=== PATIENT | male | born 1955 | race Caucasian/White ===

== ENCOUNTER 2023-04-06 09:55 | Emergency (ER) | payer MEDICARE, SELFPAY ==
[2023-04-06 10:00] VITALS: BP 193/77; PULSE 58; RESP 20; TEMP 36.6; O2SAT 98; BMI 26.6
[2023-04-06 10:45] VITALS: BP 200/104; PULSE 53; RESP 16; TEMP 37.6; O2SAT 98
[2023-04-06 11:01] VITALS: BP 185/102
--- NOTE | 2023-04-06 11:10 | ED.GENADULT ---
HPI - General Adult General Chief complaint: General Medical Stated complaint: Swollen eye/Sinus infection? Time Seen by Provider: 04/06/23 11:04 Source: patient Mode of arrival: ambulatory Limitations: no limitations History of Present Illness HPI narrative: 67-year-old male with no significant medical history, poor dentition presents to the ER for evaluation of right upper dental pain associated with mild swelling and new redness of the face, right under the right eye that started yesterday. He states he has been taking ibuprofen with no relief in the pain. He states the pain is worse when he opens his mouth all the way. He denies any new dental trauma. He does not have a dentist that he follows with regularly. He denies any pain with extraocular movements. No swelling of the upper eye. No fever or chills. No vision changes. MD complaint: Right upper dental pain and right-sided facial swelling Onset (ago): day(s) (2) Location: face and mouth Radiation: distal Severity: moderate Severity scale (1-10): 7 Quality: aching Pain Consistency: constant Relieving factors: medication Exacerbating factors: movement Associated symptoms: denies other symptoms Treatments prior to arrival: NSAID Related Data Previous Rx's Medication Instructions Recorded amoxicillin 875 mg-potassium 1 tab PO BID #20 tabs 04/06/23 clavulanate 125 mg tablet Allergies Allergy/AdvReac Type Severity Reaction Status Date / Time No Known Allergies Allergy Verified 04/06/23 10:12 Review of Systems Review of Systems: Yes all other systems are reviewed and are negative PMFSH Social History Social History Advance Directives: No Advance Directives Information Provided: Yes Physical Exam ED Vital Signs: Vital Signs - 24 hr 04/06/23 10:00 04/06/23 10:45 04/06/23 11:01 Temperature 98 F 99.6 F Pulse Rate 58 53 Respiratory Rate 20 16 Blood Pressure 193/77 H 200/104 H 185/102 H Pulse Oximetry 98 98 Oxygen Delivery Method Room Air Room Air BMI result Body Mass Index 26.6 Appearance: Alert. Oriented X3. No acute distress. Head: normocephalic, atraumatic. Eyes: Right inferior periorbital area with mild erythema, slight puffiness and tenderness. Normal inspection of the right upper eyelid, conjunctiva and sclera. Pupils equal, round and reactive to light. Extraocular movements intact ENT: Poor dentition, 2 broken and decayed teeth in the right upper molar area with tenderness. No associated gingival fluctuance. No trismus Pharynx normal. No tonsillar swelling or exudate. Neck: Normal inspection. Neck supple. No palpable lymphadenopathy CVS: Normal heart rate and rhythm. Pulses normal. Respiratory: No respiratory distress. Breath sounds normal. Abdomen: Soft and nontender. +BS x4 Skin: Skin warm and dry. Normal skin color. Normal skin turgor. No rashes. Extremities: No lower extremity edema. No joint swelling. Neuro/psych: Oriented X 3. No motor deficit. No sensory deficit. CN II-XII intact. Normal speech and cognition. Medical Decision Making Medical Decision Making MDM Narrative: 67-year-old male with history of poor dentition presents to the ER for evaluation of right upper dental pain associated with right-sided facial swelling and pain, new onset of redness and swelling below the right eye today. No pain with extraocular movements. The redness and swelling is mild and new onset as of yesterday. He is not diabetic. No fevers or chills. No trismus. No palpable abscess on examination. Will treat for preseptal cellulitis with Augmentin. No risk factors for MRSA. He was given list of emergency dentist to follow-up with. He will contact PCP. He has not seen a doctor in years. He states he has a longstanding history of untreated hypertension, but his blood pressure and not been is high. Pain likely contributing. He has no chest pain, vision changes, headache at this time. Blood pressure 180/100 at the time of discharge. He is asymptomatic. Differential Diagnosis Differential Diagnoses: The differential diagnosis associated with the presentation includes Dental abscess, preseptal cellulitis, periorbital cellulitis Untreated hypertension, malignant hypertension, hypertensive urgency, hypertensive emergency Prescription Management I considered prescription management with: Pain Medication and Antibiotic Chronic Conditions Patient?s care impacted by: Hypertension Critical Care Time Critical Care Time Critical Care Time: No Discharge Plan Discharge Clinical Impression: Preseptal cellulitis of right eye Patient Disposition: Home, Self-Care Instructions: Periorbital Cellulitis in Adults (ED) Additional Instructions: Take the prescribed antibiotic as directed. Start the antibiotic right away, do not miss any doses in complete the entire course. Use warm compresses to the area to help increase blood flow, to fight the infection. Follow-up with a dentist as soon as possible. Continue Tylenol and Motrin as needed for pain. Follow-up with your primary care doctor as soon as possible. Your blood pressure was significantly elevated in the emergency department. If you develop new or worsening symptoms call 911 or come back to the ER for further evaluation. Prescriptions: New amoxicillin-pot clavulanate 875-125 mg tablet 1 tab PO BID Qty: 20 0RF Referrals: Heron Mccracken MD [Primary Care Provider] -
--- NOTE | 2023-04-06 11:30 | PC.NURSE ---
Pt given D/C instructions, follow up with PCP in regards to BP.
== END 2023-04-06 11:31 | disposition home or self-care (01) ==
PROVIDERS: Emergency Provider Emergency Medicine; PCP Internal Medicine
DX: H00.031 Abscess of right upper eyelid (principal)
CPT/HCPCS: 99283

== ENCOUNTER 2024-01-15 08:11 | Outpatient (AMB) | payer MEDICARE, SELFPAY ==
[2024-01-15 08:40] VITALS: BP 180/100; PULSE 94; TEMP 36.5; O2SAT 96; BMI 28.9
--- NOTE | 2024-01-15 08:40 | MHC.OFFWIV ---
Intake Vital Signs 01/15/24 08:40 Height 5 ft 9 in Weight 196 lb BMI 28.9 BP 180/100 H Blood Pressure Location Lt brachial Position Sitting Pulse 94 Pulse Source Pulse Oximeter Temp 97.7 F Temp Source Temporal Artery Scan Pulse Oximetry (%) 96 Oxygen Delivery Method Room Air Intake Visit Reasons: EP Lft side pain coughing sneezing Intake Note: pt is here today for lft side pain coughing sneezing started 1 week ago Patient Tobacco Use Status: Never used Tobacco Allergies No Known Allergies Allergy (Verified 01/15/24 08:41) Do you need a note to return to daycare/school/sports/work: Yes HPI HPI Comments History of Present Illness Details 68 y/o male patient who presents to walk in clinic with c/o URI symptoms. Reports coughing on/off for 2 weeks now. Denies fevers, chills, nausea or vomiting. He has been taking OTC remedies with some relief. PFSH Social History Patient Tobacco Use Status: Never used Tobacco Review of Systems Const All systems reviewed & are unremarkable except as noted in HPI and below Physical Exam Vital Signs: Last Vital Signs Temp 97.7 F 01/15/24 08:40 Pulse 94 01/15/24 08:40 BP 180/100 H 01/15/24 08:40 Pulse Ox 96 01/15/24 08:40 Oxygen Delivery Method Room Air 01/15/24 08:40 BMI result Body Mass Index 28.9 Const General: comfortable and no acute distress Nutritional Appearance: obese Orientation/consciousness: patient oriented x3 HEENT Head: Yes No palpable skull fracture present and Yes normocephalic Ears: external ears normal and TM's normal bilaterally General nose exam: Normal nasal mucous membranes and turbinates present Face and sinus: Yes sinuses nontender Mouth: moist mucous membranes Throat: Yes posterior oropharynx normal Resp Effort & Inspection: normal respiratory effort and able to speak in complete sentences Auscultation: clear to auscultation bilaterally, no crackles, no rales, no rhonchi and no wheezes Cardio Rate: regular rate Rhythm: regular rhythm Neuro General: patient oriented x3 Assessment & Plan Assessment & Plan (1) Cough in adult: Code(s): R05.9 - Cough, unspecified Plan: - OTC cough remedies Orders: Orders SARS-CoV2/FLU/RSV Today R05.9 - Cough, unspecified Medications: New benzonatate 100 mg PO TID 30 caps 0RF R05.9 - Cough, unspecified Coding Level of Care Code Est Pt Level 3 (28501) Diagnoses Cough in adult R05.9 Time Spent (min) 15
== END 2024-01-15 09:34 | disposition home or self-care (01) ==
PROVIDERS: PCP Internal Medicine; Visit Provider Nurse Practitioner Family
DX: R05.9 Cough, unspecified (principal)
CPT/HCPCS: 99213

== ENCOUNTER 2024-01-15 09:14 | Outpatient (REF) | payer MEDICARE, SELFPAY ==
[2024-01-15 12:15] LABS: Influenza A PCR NEGATIVE (Negative); Influenza B PCR NEGATIVE (Negative); Resp Syncy Virus RNA Qual PCR NEGATIVE (Negative); SARS COV2 PCR INHOUSE NEGATIVE (Negative)
== END 2024-01-15 09:15 | disposition home or self-care (01) ==
LOC: HO.LAB 09:14
PROVIDERS: Visit Provider Nurse Practitioner Family
DX: Z11.52 Encounter for screening for COVID-19 (principal); Z20.822 Contact with and (suspected) exposure to COVID-19; R05.9 Cough, unspecified
CPT/HCPCS: 0241U

== ENCOUNTER 2024-09-14 23:35 | Observation (INO) | payer MEDICARE, SELFPAY ==
--- NOTE | ~2024-09-14 | CT_ITS ---
EXAMINATION: IV contrast enhanced CT angiography of the head and neck; delayed IV contrast-enhanced CT the head CLINICAL INFORMATION: Right face, arm and leg numbness. COMPARISON: Unenhanced CT of the head 09/15/2024 TECHNIQUE: IV contrast enhanced CT angiography of the head and neck with multiple 3-D reformatted angiographic thick section MIPS images processed on the technologist workstation under concurrent supervision; delayed IV contrast-enhanced CT the head. Vascular stenoses are made with reference to the NASCET criteria less otherwise specified. This CT examination was performed using dose optimization techniques as appropriate, variously including the following: *Automated exposure control *Adjustment of mA and/or kV according to patient size (this includes techniques or standardized protocols for targeted exams where dose is matched to indication/reason for exam; i.e. extremities or head) *Use of iterative reconstruction technique Intravenous Contrast: Omnipaque 350 75 mL DLP: 1513 mGy-cm FINDINGS: IV contrast enhanced CT of the head: No intracranial hemorrhage, tumors or acute infarcts identified. . Mild diffuse commensurate prominence of the ventricles and sulci. Mild scattered subcortical and periventricular white matter patchy hypodensities. No abnormal extra-axial fluid collections. Bilateral ocular lens replacements. No extracranial soft tissue inflammatory changes. 2 mm incidental punctate subcutaneous calcification within the left temporal region. No significant opacification of the visualized paranasal sinuses, mastoid air cells and middle ear cavities. CT angiography neck: Conventional branching anatomy of the great vessels in relation to the transverse aorta. Scattered nonocclusive calcifications within the proximal great vessels. Nonocclusive scattered eccentric segmental anomaly noncalcific atherosclerosis within the left and right common carotid arteries. Right carotid bulb is patent. Nonocclusive eccentric calcific and noncalcific nonulcerative plaque is present at the origin of the right internal carotid artery. Eccentric nonulcerative mixed calcific and noncalcific plaque is present at the origin of the left internal carotid artery. A diminutive right vertebral artery is present. The left vertebral artery is dominant. Diminutive right foramina transversaria are present. No vertebral artery dissections identified. CT angiography head: Field-type origin of the right posterior cerebral artery is noted. Mild nonocclusive segmental calcific plaques are present in the cavernous portions of the internal carotid arteries. No intracranial occlusions or stenoses identified. No intracranial aneurysms visualized. Within the visualized pulmonary arterial system, no gross intraluminal filling defects noted. Scattered coarse benign appearing reticular opacities are present in the left lung apex. The thyroid is grossly normal in appearance. No gross cervical lymphadenopathy identified. Normal appearance of the submandibular and parotid glands. Dental amalgam is present and is arises scattering artifact during visualization of adjacent transaxial structures. Marked intervertebral disc space narrowing and endplate osteophytosis of the cervical spine is present. Multilevel facet hypertrophic changes of the cervical spine noted. CT/CT angio head neck stroke IMPRESSION: IV contrast enhanced CT of the head: *No acute intracranial abnormalities. *Mild chronic microangiopathic ischemic changes. CT angiography head: *No intracranial large vessel occlusions. *Nonocclusive mild segmental calcific atherosclerosis of the cavernous portions of the internal carotid arteries. CT angiography neck: *No high-grade stenoses. *Nonocclusive eccentric nonulcerative mixed calcific and noncalcific atherosclerotic plaque at the origins of the left and right internal carotid arteries. *Nonocclusive nonulcerative segmental atherosclerosis of the common carotid arteries. This result was discussed with Ranjana Davila MD by telephone at 09/15/2024 1:01 AM EST and it was ascertained that the content and urgency of the report was understood at the time of direct communication. Electronically signed by: Cristofer Dill MD 09/15/2024 01:03 AM EST
--- NOTE | ~2024-09-14 | CT_ITS ---
EXAMINATION: CT HEAD WITHOUT CONTRAST (STROKE PROTOCOL) CLINICAL INFORMATION: Stroke protocol. Right face, arm and leg numbness. COMPARISON: None available. TECHNIQUE: Contiguous axial imaging was performed from the skull base to vertex without intravenous administration of contrast. This CT examination was performed using dose optimization techniques as appropriate, variously including the following: *Automated exposure control *Adjustment of mA and/or kV according to patient size (this includes techniques or standardized protocols for targeted exams where dose is matched to indication/reason for exam; i.e. extremities or head) *Use of iterative reconstruction technique DLP: 715 mGy-cm FINDINGS: No intracranial hemorrhage, tumors or acute infarcts identified. Mild diffuse commensurate prominence of ventricles and sulci. Mild scattered subcortical and periventricular white matter patchy hypodensities. No dense vessel sign is identified to specifically suggest thrombus in situ. No abnormal extra-axial fluid collections identified. Bilateral ocular lens replacements. No intracranial soft tissue inflammatory changes. No significant opacification of the visualized paranasal sinuses, mastoid air cells and middle ear cavities. No extracranial soft tissue inflammatory changes visualized. Incidental note is made of a 3 mm punctate subcutaneous calcification in the left temporal region. CT/CT head for stroke IMPRESSION: *No acute intracranial abnormalities. No intracranial hemorrhage or acute infarcts identified. *Mild chronic microangiopathic ischemic changes. This critical result was discussed with Ranjana Davila MD by telephone at 09/15/2024 12:26 PM EST and it was ascertained that the content and urgency of the report was understood at the time of direct communication. Electronically signed by: Cristofer Dill MD 09/15/2024 12:29 AM EST
--- NOTE | ~2024-09-14 | MR_ITS ---
EXAMINATION: MR BRAIN WITHOUT CONTRAST CLINICAL INFORMATION: Left subcortical infarct COMPARISON: Correlated to CT brain and CT angiogram brain dated September 15, 2024. TECHNIQUE: MRI of the brain was obtained using routine sequences without contrast. FINDINGS: Paramagnetic field distortion secondary to hardware in the left frontal convexity. No restricted diffusion. No acute intracranial hemorrhage, mass effect, midline shift, hydrocephalus or herniation. There are multifocal, scattered in numerous susceptibility signal foci involving the infratentorial and supratentorial compartments and basal ganglia. Rodriguez-white matter differentiation is normal. Bilateral multifocal patchy and confluent deep periventricular white matter hyperintense T2 FLAIR signal involving centrum semiovale and massey radiata, the most conspicuous in the right parietal white matter. Multifocal old lacunar infarcts with the cribriform pattern involving the basal ganglia and massey radiata. Distinct old lacunar infarct left thalamus Flow-void signal within the main vessels is normal. Sellar/suprasellar region demonstrated no gross masses or signal abnormality. Craniocervical junction is intact. Midline structures are normal. MR/MR head/brain wo con IMPRESSION: No acute ischemia/stroke. Small vessel occlusive disease. Old microhemorrhages related to chronic hypertension and less likely amyloid microangiopathy Electronically signed by: Mehdi Stack MD 09/15/2024 03:38 PM EST
[2024-09-14 23:47] VITALS: BP 193/95; PULSE 89; RESP 16; TEMP 36.7; O2SAT 97
[2024-09-15] VITALS (9 sets, daily range): BP systolic 146–182; BP diastolic 72–89; PULSE 68–91; RESP 16–19; TEMP 36.4–36.7; O2SAT 96–99; BMI 28.8
--- NOTE | 2024-09-15 00:01 | ECG_ITS ---
Test Reason : STROKE PROTOCAL Blood Pressure : / mmHG Vent. Rate : 090 BPM Atrial Rate : 090 BPM P-R Int : 158 ms QRS Dur : 130 ms QT Int : 386 ms P-R-T Axes : 053 -25 -05 degrees QTc Int : 472 ms Normal sinus rhythm Right bundle branch block Minimal voltage criteria for LVH, may be normal variant ( R in aVL ) Abnormal ECG No previous ECGs available Referred By: Ranjana Davila Electronically Signed By:DA MENSAH MD
--- NOTE | 2024-09-15 00:03 | ED_ITS ---
HPI - Neuro Symptoms/Deficit General Chief Complaint: Stroke Stated Complaint: r side numbness Time Seen by Provider: 09/14/24 23:51 Source: patient and family Mode of arrival: ambulatory Limitations: no limitations History of Present Illness ED Provider: Dr. Ranjana Davila HPI Narrative: Patient comes to the emergency room complaining of right-sided face, arm and left leg numbness. According to the patient at 21:30 he went to bed. Approximately at 23:00 (1 hour ago), patient woke up and noted that his right arm was numb and tingly. Patient states that this happens to him a lot because he usually sleeps on his right side. However, he noticed that this time it was not only his arm, but his right side of the face, tongue and leg. Patient states that he does not have weakness in the upper lower extremities. However they feel numb and tingly. According to the patient's , she never noted any facial drooping, no dysarthria or aphasia. The patient's state that patient was able to walk normal from the car to the ED entrance, not dragging the leg. Patient denies any medical problems. However, the patient's states that the patient has had been seen a primary care physician in several years. Patient known to have history of hypertension but does not take any medication per patient's choice. Patient is not on any blood thinners. Related Data Previous Rx's ?Medication ?Instructions ?Recorded benzonatate 100 mg capsule 100 mg PO TID #30 caps 01/15/24 Allergies Allergy/AdvReac Type Severity Reaction Status Date / Time No Known Allergies Allergy Verified 09/14/24 23:57 Review of Systems 2 Review of Systems: Constitutional : No Weight loss, No Fever, No Chills, No Night Sweats, No Fatigue, No Malaise ENT/Mouth : No Hearing loss, No Ear Pain, No Nasal Congestion, No Sinus Pain, No Hoarseness, No sore throat, No Rhinorrhea, No Swallowing Difficulty Eyes: No Eye Pain, No Swelling, No Redness, No Foreign Body, No Discharge, No Vision Changes Cardiovascular : No Chest Pain, No SOB, No Dyspnea on Exertion, No Orthopnea, No Edema, No Palpitations Respiratory : No Cough, No Sputum, No Wheezing, No Smoke Exposure, No Dyspnea Gastrointestinal : No Nausea, No Vomiting, No Diarrhea, No Constipation, No abdominal Pain, No Hematochezia, No Melena Genitourinary : no irregular bleeding, No Dysuria, No Urinary Frequency, No Hematuria, No Urinary Incontinence, No Urgency, No Flank Pain, No Urinary Flow Changes, No Hesitancy Musculoskeletal : No joint pain, No Myalgias, No Joint Swelling Skin : No Skin Lesions, No rash Neuro : No Weakness, complaining of right-sided face, arm and leg numbness tingling Psych : No Anxiety/Panic, No Depression, No SI/HI/AH/VH, No Social Issues, Heme/Lymph: No Bruising, No Bleeding,No Lymphadenopathy Endocrine : No Polyuria, No Polydipsia, No Temperature Intolerance [facility] Past Medical History Medical History (Updated 09/15/24 @ 00:52 by Ranjana Davila MD) Hypertension Social History Social History Patient Tobacco Use Status: Never used Tobacco Advance Directives: No Advance Directives Information Provided: Yes Do you have a plan to hurt others: No Plan Physical Exam 2 Vital Signs: Vital Signs: Last Vital Signs Temp 98.0 F 09/15/24 00:51 Pulse 91 09/15/24 01:00 Resp 17 09/15/24 00:51 BP 173/85 H 09/15/24 01:00 Pulse Ox 96 09/15/24 00:51 O2 Del Method Room Air 09/15/24 00:51 BMI result Body Mass Index 30.0 Const: Other: Appearance: Alert. Oriented X3. No acute distress. Eyes: Pupils equal, round and reactive to light. ENT: Pharynx normal. Neck: Normal inspection. Neck supple. No lymph nodes noted. No crepitus CVS: Normal heart rate and rhythm. Pulses normal. Normal S1 and S2 Respiratory: No respiratory distress. Breath sounds normal. No Wheezing. No rales Abdomen: Soft and nontender. No rigidity. No distention. Skin: Skin warm and dry. Normal skin color. Normal skin turgor. Extremities: No lower extremity edema. No Lacerations. No Rash Neuro: Oriented X 3. No motor deficit. No sensory deficit. Moving all extremities. No slurred speech. CN 2 through 12 grossly intact normal speech, no dysarthria, no aphasia, normal strength in upper and lower extremities Psych: calm, cooperative, normal affect Course Course Course Narrative: On arrival, patient's NIH score is 0. Patient reporting right-sided facial numbness and tingling, also in the upper and lower extremity on the right. Patient states that since he arrived to the ED, the numbness/paresthesias have actually gotten better by themselves. Medications Administered Discontinued Medications Generic Name Dose Route Start Last Admin Trade Name Breanna PRN Reason Stop Dose Admin Aspirin 325 mg 09/15/24 00:38 09/15/24 01:01 Aspirin Enteric Coated 325 Mg Tablet. PO 09/15/24 00:39 325 mg ONCE ONE Administration Atorvastatin Calcium 80 mg 09/15/24 00:38 09/15/24 01:01 Atorvastatin Calcium 80 Mg Tablet PO 09/15/24 00:39 80 mg ONCE ONE Administration Iohexol 75 ml 09/15/24 00:19 09/15/24 00:19 Iohexol 350 Mg/Ml 100 Ml Infus..Btl IV 09/15/24 00:20 75 ml ONCE ONE Administration Labetalol HCl 100 mg 09/15/24 00:38 09/15/24 01:00 Labetalol Hcl 100 Mg Tablet PO 09/15/24 00:39 100 mg ONCE ONE Administration Protocol Medical Decision Making Medical Decision Making [facility] Narrative: 00:40: Patient remains alert and oriented, on physical exam at this time, patient's NIH remains at 0. Patient is still complaining of paresthesias in the right side of the face, right arm right leg. -patient received p.o. aspirin and atorvastatin -CT and CTA scan results discussed with Andrés Radiologist, Dr. Dill, no acute findings -I discussed the patient and CT scan findings with Dr. Stephens from Neurology, no [facility], patient to be admitted for further evaluation. -I discussed the patient with Dr. Navarrete, patient admitted Differential Diagnosis Differential Diagnoses: The differential diagnosis associated with the presentation includes (TIA, CVA, migraine) Admission/Observation Consideration of admission/observation: Escalation of care including admission/observation considered Consult Healthcare Provider Management of the patient was discussed with: Hospitalist and Fire Control Mechanic Lab Data [facility] Lab Attestation statement: I reviewed the patient's lab results. 09/14/24 23:56 09/14/24 23:56 Labs: Lab Results 09/14/24 09/14/24 09/15/24 Range/Units 23:56 23:59 00:00 WBC 5.6 (4.8-10.8) X10*3/uL RBC 4.88 (4.60-5.80) X10*6/uL Hgb 15.9 (14.0-18.0) g/dl Hct 44.9 (42.0-52.0) % MCV 92.0 (80.0-98.0) fL MCH 32.6 (27.0-33.0) pg MCHC 35.4 (31.0-36.0) g/dl RDW 12.6 (11.0-16.0) % Plt Count 252 (160-400) X10*3/uL MPV 9.4 (9.4-12.4) fL Immature Gran % (Auto) 0.2 (0.0-0.4) % Neut % (Auto) 52.5 (45-73) % Lymph % (Auto) 30.1 (20-40) % [place] % (Auto) 12.5 H (2-11) % Eos % (Auto) 4.3 H (0-4) % Baso % (Auto) 0.4 (0-2) % Lymph # (Auto) 1.7 (1.2-4.9) X10*3/uL [place] # (Auto) 0.7 (0.1-1.2) X10*3/uL Eos # (Auto) 0.2 (0.0-0.4) X10*3/uL Baso # (Auto) 0.0 (0.0-0.2) X10*3/uL Abs Immat Gran (auto) 0.01 (0.00-0.03) X10*3/uL Absolute Neuts (auto) 2.9 (2.0-8.3) x10*3/uL Absolute Nucleated RBC 0.000 (0.0-0.012) X10*3/uL Nucleated RBC % (auto) 0.0 (0.0-0.2) /100WBC PT 9.4 L (10.9-12.4) SEC Whole Blood PT 11.8 (11.1-13.5) sec INR 0.8 L (0.9-1.1) Whole Blood INR 1.0 (0.9-1.1) Sodium 139 (135-145) mmol/L Potassium 4.0 (3.3-5.1) mmol/L Chloride 105 (96-108) mmol/L Carbon Dioxide 23 (22-29) mmol/L Anion Gap 15 (12-20) BUN 14 (9-16) mg/dL Creatinine 0.89 (0.5-1.4) mg/dL Estim Creat Clear Calc 85.1 Estimated GFR > 60 POC Glucose 150 H (60-115) mg/dL Random Glucose 128 H (60-115) mg/dL Calcium 9.2 (8.4-10.2) mg/dL Magnesium 2.3 (1.6-2.6) mg/dL Total Bilirubin 0.4 (0.0-1.0) mg/dL Direct Bilirubin 0.1 (0.0-0.5) mg/dL AST 45 H (5-37) U/L ALT 44 H (0-40) U/L Alkaline Phosphatase 55 (39-117) U/L Troponin I High Sens 12.0 (<3.5-35.0) ng/L Total Protein 7.5 (6.5-8.0) g/dL Albumin 4.1 (3.5-5.0) g/dL Ethyl Alcohol 20 mg/dL Independent Interpretation I performed an independent interpretation of an: CT Scan Radiology Impression Discussion of test interpretation with radiology: I have reviewed the radiologist's reading. Radiologist Impression: No intracranial hemorrhage, tumors or acute infarcts identified. Mild diffuse commensurate prominence of ventricles and sulci. Mild scattered subcortical and periventricular white matter patchy hypodensities. No dense vessel sign is identified to specifically suggest thrombus in situ. No abnormal extra-axial fluid collections identified. Bilateral ocular lens replacements. No intracranial soft tissue inflammatory changes. No significant opacification of the visualized paranasal sinuses, mastoid air cells and middle ear cavities. No extracranial soft tissue inflammatory changes visualized. Incidental note is made of a 3 mm punctate subcutaneous calcification in the left temporal region. CT/CT head for stroke IMPRESSION: *No acute intracranial abnormalities. No intracranial hemorrhage or acute infarcts identified. *Mild chronic microangiopathic ischemic changes Independent Historian Clinical information obtained from an independent historian. History obtained from or confirmed by: Spouse NIH Stroke Scale Internal: Initial- Upon Arrival Level of Consciousness: Alert Level of Consciousness Questions: Answers both questions correctly Level of Consciousness Commands: Performs both tasks correctly Best Gaze: Normal Visual: No visual loss Facial Palsy: Normal Motor Arm (Right): No drift Motor Arm (Left): No drift Motor Leg (Right): No drift Motor Leg (Left): No drift Limb Ataxia: Absent Sensory: Normal Best Language: No aphasia Dysarthia: Normal Extinction and Inattention: No abnormality Score: 0 Critical Care Time Critical Care Time Critical Care Time: Yes Total Critical Care Time: 60 Attestation: I have personally provided critical care time. Time includes review of lab data, radiology results, discussion with consultants, and monitoring for potential decompensation. Intervention performed as documented. Discharge Plan Discharge Clinical Impression: Brain TIA, Hypertension Patient Disposition: Admitted As Inpatient Print Language: Slovak
[2024-09-15 00:04] LABS: Glucose, Whole Blood 150 mg/dL (60-115)
[2024-09-15 00:04] LABS: Prothrombin Time Whole Bld POC 11.8 sec (11.1-13.5)
--- NOTE | 2024-09-15 00:07 | MHC.EDTECH ---
Patient brought from the waiting room, stroke INR was done 1.0 PT 11.8,POC taken and is 150,RN/MD aware patient went to CT right from hallway
[2024-09-15 00:14] LABS: MANUAL DIFF FLAG NO
[2024-09-15 00:18] LABS: Basophils Percent Auto 0.4 % (0-2); Eosinophils Absolute Auto 0.2 X10*3/uL (0.0-0.4); Eosinophils Percent Auto 4.3 % (0-4); Hematocrit 44.9 % (42.0-52.0); Hemoglobin 15.9 g/dl (14.0-18.0); Imm Gran Abs Auto 0.01 X10*3/uL (0.00-0.03); Imm Gran Pct Auto 0.2 % (0.0-0.4); Lymphocytes Absolute Auto 1.7 X10*3/uL (1.2-4.9); Lymphocytes Percent Auto 30.1 % (20-40); Mean Corpuscular HGB Conc 35.4 g/dl (31.0-36.0); Mean Corpuscular Hemoglobin 32.6 pg (27.0-33.0); Mean Platelet Volume 9.4 fL (9.4-12.4); Monocytes Absolute Auto 0.7 X10*3/uL (0.1-1.2); Monocytes Percent Auto 12.5 % (2-11); Neutrophils Absolute Auto 2.9 x10*3/uL (2.0-8.3); Neutrophils Percent Auto 52.5 % (45-73); Platelet Count 252 X10*3/uL (160-400); Red Blood Count 4.88 X10*6/uL (4.60-5.80); Red Cell Distribution Width 12.6 % (11.0-16.0); White Blood Count 5.6 X10*3/uL (4.8-10.8)
[2024-09-15] MEDS: iohexoL 350 MG/ML 100 ML INFUS..BTL 75 ML IV (00:19)
--- NOTE | 2024-09-15 00:24 | MHC.EDTECH ---
EKG delayed due to pt being in CT scan
[2024-09-15 00:26] LABS: INTERNATIONAL NORM RATIO 0.8 (0.9-1.1); Prothrombin Time 9.4 SEC (10.9-12.4)
[2024-09-15 00:34] LABS: Alanine Aminotransferase 44 U/L (0-40); Albumin Level 4.1 g/dL (3.5-5.0); Alkaline Phosphatase 55 U/L (39-117); Anion Gap 15 (12-20); Aspartate Amino Transferase 45 U/L (5-37); Bilirubin Direct 0.1 mg/dL (0.0-0.5); Bilirubin Total 0.4 mg/dL (0.0-1.0); Blood Urea Nitrogen 14 mg/dL (9-16); Calcium 9.2 mg/dL (8.4-10.2); Carbon Dioxide 23 mmol/L (22-29); Chloride 105 mmol/L (96-108); Creatinine Clr Calc Pharmacy 85.1; Estimated Glomerular Filt Rate > 60; Ethanol 20 mg/dL; Glucose Random 128 mg/dL (60-115); Magnesium 2.3 mg/dL (1.6-2.6); Sodium 139 mmol/L (135-145); Total Protein 7.5 g/dL (6.5-8.0)
--- NOTE | 2024-09-15 00:55 | MHC.EDTECH ---
Patient brought to room ,placed on the potline monitor,EKG completed per order ,signed by provider,vitals taken,BP is elevated MD aware
[2024-09-15] MEDS: Labetalol HCL 100 MG TABLET PO (01:00)
[2024-09-15] MEDS: Aspirin Enteric Coated 325 MG TABLET.DR PO (01:01)
[2024-09-15] MEDS: Atorvastatin Calcium 80 MG TABLET PO (01:01)
--- NOTE | 2024-09-15 02:05 | MHC.EDTECH ---
Patient urinated in urinal 300MLS of yellow urine,urine sample obtained and sent to lab.
[2024-09-15 02:20] LABS: Amphetamine Screen Urine Not Detected (Not Detect); Barbiturates, Urine Not Detected (Not Detect); Benzodiazepines Screen Urine Not Detected (Not Detect); Buprenorphine Scr Not Detected (Not Detect); Cannabinoid Screen Urine POSITIVE (Not Detect); Cocaine Screen Urine Not Detected (Not Detect); Fentanyl, urine Not Detected (Not Detect); Methadone Screen, Urine Not Detected (Not Detect); Opiate Screen Urine Not Detected (Not Detect); Oxycodone Screen Urine Not Detected (Not Detect); Phencyclidine Screen Urine Not Detected (Not Detect)
--- NOTE | 2024-09-15 02:34 | PM.IMHP ---
History of Present Illness Date of Service: 09/15/24 Chief Complaint: Right sided numbness A 69 years old male who did not see a physician in many years with history of daily alcohol consumption presenting to the hospital with right sided face and body numbness of acute onset. The patient went to be around 9 pm. woke up around 11 pm feeling numbness in his right arm and leg. when he moved his arm he hit his own face as the movement was not smooth and noticed that his right sided of face is numb. he tried walking up to call his but was worried as his gait was unsteady. His reported that his speech was clear with no problem. Denies any weakness or facial drooping. He reported difficulties understanding what people are saying on occasions today. otherwise was able to answer questions when repeated. No chest pain, palpitations, SOB, nausea, vomiting, diarrhea or urinary symptoms. He drinks 6 packs everyday for many years now. In ED found to have significantly elevated BP of 200/100s. His symptoms resolved while in ED and last totally around 2 hours or less. Will be admitted for observation. Review of Systems Review of Systems: No fever, chills or weakness No chest pain, palpitation No shortness of breath or coughing No abdominal pain, nausea or vomiting No urinary symptoms No any rash or wounds PMFSH Medical History Hypertension Social History Patient Tobacco Use Status: Never used Tobacco Advance Directives: No Advance Directives Information Provided: Yes Do you have a plan to hurt others: No Plan Meds Allergies Allergy/AdvReac Type Severity Reaction Status Date / Time No Known Allergies Allergy Verified 09/14/24 23:57 Active Medications: Current Medications Amlodipine Besylate (Amlodipine Besylate 5 Mg Tablet) 5 mg PO DAILY SELINA; Protocol Losartan Potassium (Losartan Potassium 25 Mg Tablet) 25 mg PO DAILY SELINA; Protocol Physical Exam Vital Signs and Narrative: Vital Signs: Last Vital Signs Temp 98.0 F 09/15/24 00:51 Pulse 91 09/15/24 01:43 Resp 16 09/15/24 01:43 BP 179/87 H 09/15/24 01:43 Pulse Ox 97 09/15/24 01:43 O2 Del Method Room Air 09/15/24 01:43 BMI result Body Mass Index 30.0 Const: Other: Constitutional : Awake, interactive, not in distress Neck : Normal inspection, Supple Cardiovascular : RRR, no JVP, no lower extremity edema Respiratory : good bilateral air entry, no crackles, wheezes or rhonchi Gastrointestinal: soft, lax, Normal bowel sounds, Non tender Skin : Warm, Dry Neurological : Alert & oriented x3, No focal deficit , CN 2-12 within normal Results Labs 09/14/24 23:56 09/14/24 23:56 Labs: Laboratory Results - last 24 hr 09/14/24 09/14/24 09/15/24 23:56 23:59 00:00 MCV 92.0 MCH 32.6 MCHC 35.4 RDW 12.6 Plt Count 252 MPV 9.4 Immature Gran % (Auto) 0.2 Neut % (Auto) 52.5 Lymph % (Auto) 30.1 [place] % (Auto) 12.5 H Eos % (Auto) 4.3 H Baso % (Auto) 0.4 Lymph # (Auto) 1.7 [place] # (Auto) 0.7 Eos # (Auto) 0.2 Baso # (Auto) 0.0 Abs Immat Gran (auto) 0.01 Absolute Neuts (auto) 2.9 Absolute Nucleated RBC 0.000 Nucleated RBC % (auto) 0.0 PT 9.4 L Whole Blood PT 11.8 INR 0.8 L Whole Blood INR 1.0 Anion Gap 15 Estim Creat Clear Calc 85.1 Estimated GFR > 60 POC Glucose 150 H Random Glucose 128 H Calcium 9.2 Magnesium 2.3 Total Bilirubin 0.4 Direct Bilirubin 0.1 AST 45 H ALT 44 H Alkaline Phosphatase 55 Troponin I High Sens 12.0 Total Protein 7.5 Albumin 4.1 Urine Opiates Screen Ur Buprenorphine Scrn Ur Oxycodone Screen Urine Methadone Screen Urine Fentanyl Screen Ur Barbiturates Screen Ur Phencyclidine Scrn Ur Amphetamines Screen U Benzodiazepines Scrn Urine Cocaine Screen U Marijuana (THC) Screen Ethyl Alcohol 20 09/15/24 02:04 MCV MCH MCHC RDW Plt Count MPV Immature Gran % (Auto) Neut % (Auto) Lymph % (Auto) [place] % (Auto) Eos % (Auto) Baso % (Auto) Lymph # (Auto) [place] # (Auto) Eos # (Auto) Baso # (Auto) Abs Immat Gran (auto) Absolute Neuts (auto) Absolute Nucleated RBC Nucleated RBC % (auto) PT Whole Blood PT INR Whole Blood INR Anion Gap Estim Creat Clear Calc Estimated GFR POC Glucose Random Glucose Calcium Magnesium Total Bilirubin Direct Bilirubin AST ALT Alkaline Phosphatase Troponin I High Sens Total Protein Albumin Urine Opiates Screen Not Detected Ur Buprenorphine Scrn Not Detected Ur Oxycodone Screen Not Detected Urine Methadone Screen Not Detected Urine Fentanyl Screen Not Detected Ur Barbiturates Screen Not Detected Ur Phencyclidine Scrn Not Detected Ur Amphetamines Screen Not Detected U Benzodiazepines Scrn Not Detected Urine Cocaine Screen Not Detected U Marijuana (THC) Screen POSITIVE H Ethyl Alcohol Imaging Radiologist's Impressions: Impressions Head CT 09/15/24 00:00 IMPRESSION: *No acute intracranial abnormalities. No intracranial hemorrhage or acute infarcts identified. *Mild chronic microangiopathic ischemic changes. This critical result was discussed with Ranjana Davila MD by telephone at 09/15/2024 12:26 PM EST and it was ascertained that the content and urgency of the report was understood at the time of direct communication. Electronically signed by: Cristofer Dill MD 09/15/2024 12:29 AM EST RP Head/Neck CTA 09/15/24 00:00 IMPRESSION: IV contrast enhanced CT of the head: *No acute intracranial abnormalities. *Mild chronic microangiopathic ischemic changes. CT angiography head: *No intracranial large vessel occlusions. *Nonocclusive mild segmental calcific atherosclerosis of the cavernous portions of the internal carotid arteries. CT angiography neck: *No high-grade stenoses. *Nonocclusive eccentric nonulcerative mixed calcific and noncalcific atherosclerotic plaque at the origins of the left and right internal carotid arteries. *Nonocclusive nonulcerative segmental atherosclerosis of the common carotid arteries. This result was discussed with Ranjana Davila MD by telephone at 09/15/2024 1:01 AM EST and it was ascertained that the content and urgency of the report was understood at the time of direct communication. Electronically signed by: Cristofer Dill MD 09/15/2024 01:03 AM EST RP Assessment and Plan (1) Brain TIA: Status: Acute (2) Hypertensive urgency: Status: Acute (3) Numbness and tingling of right upper and lower extremity: Status: Acute (4) Facial numbness: Status: Acute (5) Alcohol abuse: Status: Acute Plan A 69 years old male who did not see a physician in many years with history of daily alcohol consumption presenting to the hospital with right sided face and body numbness of acute onset. Right sided numbness Concerning for TIA, did not meet criteria for tPa CT, CTA negative for any acute findings Start ASA, Statin Neurology evaluation Hypertensive urgency BP of 200s\100s on presentation responded partially to Labetalol Start Amlodipine and Losartan for now Goal to bring it down to 150s at this point Alcohol abuse advised to cut down or quit [facility] addiction medicine DVT PPx Lovenox Quality Stroke Does the patient have a stroke diagnosis?: No VTE Prior VTE?: No VTE Risk Level:: Medical - moderate - high VTE Device Contraindication: Treatment Not Indicated VTE Drug Contraindication: N/A - Med Ordered
[2024-09-15] MEDS: amLODIPine Besylate 5 MG TABLET PO ×2 (03:06→08:15)
[2024-09-15] MEDS: Enoxaparin Sodium 40 MG/0.4 ML SYRINGE SUBCUT (03:06)
[2024-09-15 05:06] LABS: Cholesterol 237 mg/dL (<200); HDL Cholesterol 82 mg/dL (>40); LDL Cholesterol Calculated 145 mg/dL (<100); Triglycerides 51 mg/dL (<150)
--- NOTE | 2024-09-15 05:52 | MHC.EDTECH ---
Hourly rounds and vitals completed,emptied 325MLS from urinal,patient is resting quietly,call burleson in reach
[2024-09-15] MEDS: Aspirin Enteric Coated 81 MG TABLET.DR PO (08:15)
[2024-09-15] MEDS: Losartan Potassium 25 MG TABLET PO (08:15)
--- NOTE | 2024-09-15 08:16 | PC.NURSE ---
pt medicated per provider order. admission worksheet complete - pt waiting to be transported upstairs at this time. on RA w/o difficulty. no sob/wob noted. respirations even/unlabored. plan of care ongoing. call burleson placed within reach.
[2024-09-15 08:52] LABS: Estimated Average Glucose 120 mg/dL; Hemoglobin A1C 154.7925 umol/L; Hemoglobin A1c % 5.8 % (<6.0); Total Hemoglobin (HGBA1C) 3916.7728 umol/L
--- NOTE | 2024-09-15 08:57 | PHA.MEDREC ---
Addendum entered by Chiara Stewart RPh 09/15/24 09:07: Reviewed by [facility] Original Note: Pharmacy Consult ? Medication Reconciliation Pharmacy has completed the medication reconciliation. Patient confirmed he only takes Ibuprofen 200mg tabs 3 tabs at bedtime and states I doesn't like taking medications if I don't have too, but I take 3 Ibuprofens at night to keep up with the old age . He confirmed he took them last night.
--- NOTE | 2024-09-15 10:26 | MHC.CM.PN ---
Marit[place] 09/15/24, Pt lives with his , he said his PCP is Heron Mccracken, but has not seen him or any doctor in about 8 years. CM called office, and pt is no longer active there. Pt given info on getting new pt. appt at and [facility]. Pt. is independent, no home health services or DME. He will complete HCP form here and it will be added to his chart. Transport home at DC by , DCP: home, self care. CM to follow for DC needs.
--- NOTE | 2024-09-15 10:59 | MHC.RECOVRN ---
AUDIT-C Brief Intervention Pt had positive screen for unhealthy alcohol use on admission. Attempted to meet with pt to discuss alcohol use and offer resources, pt declined.
--- NOTE | 2024-09-15 12:30 | PM.NEUROCN ---
History of Present Illness Data of Consult Service Date: 09/15/24 Primary Care Provider: Heron Mccracken MD [facility] Reason for consult: Right-sided numbness 69 years old man with hypertension that he was not treating with any medicine slept last night without any problem and couple of hours later when he tried to changes side from [id number] his hand hit his face. He was surprised and thought that maybe it was somebody else's hand. Then he noted that his hand was numb. It tried to get up and noted that his whole right side was numb. There was no associated pain or headache nausea or vomiting or dizziness. When he was walking he felt little bit unsteady. He came to emergency room and when he arrived in emergency room numbness was somewhat reduced. He was evaluated and noted to have minimal to no neurological deficit and despite suspicion of stroke he was not treated with TNK. CTA did not reveal any treatable lesion and he was admitted. His blood pressure was high. Review of Systems Review of Systems: No recent cold or flu-like illness PMFSH Past Medical History Medical History Hypertension Social History Social History Household Members: Spouse Housing: House Alcohol intake: current Alcohol intake frequency: 3 or more drinks per day Alcohol type: beer Patient Tobacco Use Status: Former Tobacco user service: No Meds Allergies Allergy/AdvReac Type Severity Reaction Status Date / Time No Known Allergies Allergy Verified 09/14/24 23:57 Active Medications: Current Medications Acetaminophen (Acetaminophen 325 Mg Tablet) 650 mg PO Q6H PRN PRN Reason: Pain, Mild (Pain Scale 1-3), fever or headache Amlodipine Besylate (Amlodipine Besylate 5 Mg Tablet) 5 mg PO DAILY [facility]; Protocol Last Admin: 09/15/24 08:15 Dose: 5 mg Aspirin (Aspirin Enteric Coated 81 Mg Tablet.) 81 mg PO DAILY [facility] Last Admin: 09/15/24 08:15 Dose: 81 mg Atorvastatin Calcium (Atorvastatin Calcium 40 Mg Tablet) 40 mg PO BEDTIME [facility] Calcium Carbonate (Calcium Carbonate 750 Mg Tab.Chew) 750 mg PO Q4H PRN PRN Reason: Heartburn Enoxaparin Sodium (Enoxaparin Sodium 40 Mg/0.4 Ml Syringe) 40 mg SUBCUT Q24H SELINA Last Admin: 09/15/24 03:06 Dose: 40 mg Losartan Potassium (Losartan Potassium 25 Mg Tablet) 25 mg PO DAILY [facility]; Protocol Last Admin: 09/15/24 08:15 Dose: 25 mg Magnesium Hydroxide (Milk Of Magnesia 30 Ml Oral.Susp) 30 ml PO DAILY PRN PRN Reason: Constipation Melatonin (Melatonin 3 Mg Tablet) 6 mg PO BEDTIME PRN PRN Reason: Insomnia Ondansetron HCl (Ondansetron Hcl 4 Mg/2 Ml Vial) 4 mg IVPUSH Q8H PRN PRN Reason: Nausea and Vomiting Sodium Chloride (0.9 % Sodium Chloride Flush 3 Ml Syringe) 3 ml IVFLUSH QSHIFT [facility] Last Admin: 09/15/24 07:48 Dose: Not Given Home Medications ?Medication ?Instructions ?Recorded ?Confirmed ?Last Taken ?Type ibuprofen 200 mg tablet 600 mg PO BEDTIME 09/15/24 09/15/24 09/14/24 History Physical Exam Vital Signs: Vital Signs: Last Vital Signs Temp 98.0 F 09/15/24 11:04 Pulse 71 09/15/24 11:04 Resp 18 09/15/24 11:04 BP 166/89 H 09/15/24 11:04 Pulse Ox 98 09/15/24 11:04 O2 Del Method Room Air 09/15/24 11:04 BMI result Body Mass Index 28.8 Neuro: Other: He was alert and awake with normal spontaneity of speech fluency comprehension and affect. Face was symmetrical. Visual chang are full. There was no definite pronator drift. Double simultaneous touch stimulation did not result in extinction. Deep tendon reflexes were trace to absent with flat plantars. Speech was normal. Results Labs 09/14/24 23:56 09/14/24 23:56 Labs: Short CBC 09/14/24 Range/Units 23:56 WBC 5.6 (4.8-10.8) X10*3/uL Hgb 15.9 (14.0-18.0) g/dl Hct 44.9 (42.0-52.0) % Plt Count 252 (160-400) X10*3/uL BMP 09/14/24 23:56 Sodium 139 Potassium 4.0 Chloride 105 Carbon Dioxide 23 BUN 14 Creatinine 0.89 Calcium 9.2 Liver Function 09/14/24 Range/Units 23:56 Total Bilirubin 0.4 (0.0-1.0) mg/dL Direct Bilirubin 0.1 (0.0-0.5) mg/dL AST 45 H (5-37) U/L ALT 44 H (0-40) U/L Alkaline Phosphatase 55 (39-117) U/L Albumin 4.1 (3.5-5.0) g/dL Noncontrast head CT revealed moderately severe hypodense signal abnormalities in deep white matter on both sides, right more than left. CTA did not reveal any fixed lesion. Assessment and Plan (1) Numbness and tingling of right upper and lower extremity: Status: Acute 69 years old man with untreated hypertension and alcohol abuse came with sudden onset of right-sided numbness. He probably had a left subcortical ischemic infarct. His head CT revealed multiple similar chronic lesions. I recommend a noncontrast MRI of brain to confirm the diagnosis and rule out alternate possibility. He was educated about this type of problem and was strongly advised to treat high blood pressure with medicine, walk a mi or 2 every day, do not drink alcohol at all, and take cholesterol medicine and blood thinner like aspirin daily. Procedures Date of Service Date of Service: 09/15/24
--- NOTE | 2024-09-15 12:54 | PM.EVENT ---
Event Note Date of Service: 09/15/24 Event Note: Day hospitalist update S: R-sided numbness resolved; no weakness O: Temp Pulse Resp BP Pulse Ox O2 Del Method 98.0 F 71 18 166/89 H 98 Room Air 09/15/24 11:04 09/15/24 11:04 09/15/24 11:04 09/15/24 11:04 09/15/24 11:04 09/15/24 11:04 Gen: in no acute distress HEENT: sclera anicteric, moist mucus membranes Neck: supple Lungs: clear to auscultation bilaterally Heart: regular rate and rhythm, no murmurs Abd: soft, non-tender, non-distended Ext: no edema Skin: warm/well-perfused Neuro: alert and oriented x3, no focal weakness, no pronator drift Psych: appropriate affect A/P: d1 69yo M presenting with R-sided numbness that has since resolved, HTN urgency suspected TIA vs CVA - Neuro consulted, concern for L subcortical infarct, MRI ordered, ASA + statin, BP contrl HTN urgency - improved on losartan + amlodipine AUD - counseled abstinence, CIWA scorning, Addiction Medicine consult VTE ppx - enoxaprain dispo - possibly home tomorrow In my clinical judgment, the patient requires continued hospitalization for the following reasons: TIA/CVA workup Time Spent With Patient Time: Total time managing care of this patient today ____ minutes.
--- NOTE | 2024-09-15 13:26 | MHC.STROKE ---
Met with Jose in room 476. Pt was awake, alert and oriented. He was engaged in conversation and had multiple questions. Topics covered included stroke protocol, risk factors, plan of care, and discharge follow up. Stroke booklet provided. All questions answered. Risk factors discussed included diet, blood pressure, alcohol use. Pt denies smoking. We also discussed medication compliance along with PCP followup. Jose reports going to bed around 2130 last night. Around 2300 he woke up and noted that his right side was numb. This included his face, arm, and leg. His brought him to the ED for further evaluation. Upon arrival to ED, numbness started to subside. Today he reports some mild numbness to the right side of his lip and outer portion of right leg. Pt is moving all extremities. Pt also reports that after arriving to the ED last night he had a headache. Pt remained engaged during the entire conversation. Pt will be seen by neurology and we will await further recommendations. This RN will continue to assist as needed.
--- NOTE | 2024-09-15 16:52 | P.DS_ITS ---
DS: Providers Provider Date of Service: 09/15/24 Date of admission: 09/15/24 02:31 Date of discharge: 09/15/24 Primary care physician: Heron Mccracken MD Consults: 09/15/24 02:31 Addiction Medicine Routine Consulting Provider: Addiction Covering Reason for consultation: daily drinker Consult to Neurology Routine Consulting Provider: [facility] Reason for consultation: Right sided numbness, difficulties understanding speech DS: Diagnosis Discharge Diagnosis (1) Brain TIA: Status: Acute (2) Hypertensive urgency: Status: Acute (3) Alcohol abuse: Status: Acute DS: Summary Hospital Course Hospital Course: From the history and physical by the admitting hospitalist, Micaela Navarrete MD, 09/15/24: A 69 years old male who did not see a physician in many years with history of daily alcohol consumption presenting to the hospital with right sided face and body numbness of acute onset. The patient went to be around 9 pm. woke up around 11 pm feeling numbness in his right arm and leg. when he moved his arm he hit his own face as the movement was not smooth and noticed that his right sided of face is numb. he tried walking up to call his but was worried as his gait was unsteady. His reported that his speech was clear with no problem. Denies any weakness or facial drooping. He reported difficulties understanding what people are saying on occasions today. otherwise was able to answer questions when repeated. No chest pain, palpitations, SOB, nausea, vomiting, diarrhea or urinary symptoms. He drinks 6 packs everyday for many years now. In ED found to have significantly elevated BP of 200/100s. His symptoms resolved while in ED and last totally around 2 hours or less. Will be admitted for observation. He was admitted to the telemetry unit. R-sided numbness resolved. Neurology was consulted. Due to concern for left subcortical infarct, MRI was done. MRI did not show any acute stroke. There was small vessel occlusive disease as well as old microhemorrhages related to chronic hypertension. He was started on aspirin and atorvastatin for stroke prevention and started on losartan and amlodipine for blood pressure control. Abstinence from alcohol was counseled; he declined further intervention from the Recovery Team. He was discharged home and instructed to follow up with Primary Care in 2 weeks. BMP was ordered to be done in 2 weeks. Time Attestation Discharge Coordination Time (in mins): 35 Quality: Safe Use of Opioids Does Pt have an Active Cancer Diagnosis on the Problem List?: No Quality: Stroke Does the patient have a stroke diagnosis?: No Physical Exam Vital Signs: Vital Signs: Last Vital Signs Temp 98.0 F 09/15/24 11:04 Pulse 71 09/15/24 11:04 Resp 18 09/15/24 11:04 BP 166/89 H 09/15/24 11:04 Pulse Ox 98 09/15/24 11:04 O2 Del Method Room Air 09/15/24 11:04 BMI result Body Mass Index 28.8 Gen: in no acute distress HEENT: sclera anicteric, moist mucus membranes Neck: supple Lungs: clear to auscultation bilaterally Heart: regular rate and rhythm, no murmurs Abd: soft, non-tender, non-distended Ext: no edema Skin: warm/well-perfused Neuro: alert and oriented x3, no focal weakness Psych: appropriate affect DS: Data Data Completed and Pending Completed studies during hospitalization [Text1]: Laboratory Results WBC 5.6 X10*3/uL (4.8-10.8) 09/14/24 23:56 RBC 4.88 X10*6/uL (4.60-5.80) 09/14/24 23:56 Hgb 15.9 g/dl (14.0-18.0) 09/14/24 23:56 Hct 44.9 % (42.0-52.0) 09/14/24 23:56 MCV 92.0 fL (80.0-98.0) 09/14/24 23:56 MCH 32.6 pg (27.0-33.0) 09/14/24 23:56 MCHC 35.4 g/dl (31.0-36.0) 09/14/24 23:56 RDW 12.6 % (11.0-16.0) 09/14/24 23:56 Plt Count 252 X10*3/uL (160-400) 09/14/24 23:56 MPV 9.4 fL (9.4-12.4) 09/14/24 23:56 Immature Gran % (Auto) 0.2 % (0.0-0.4) 09/14/24 23:56 Neut % (Auto) 52.5 % (45-73) 09/14/24 23:56 Lymph % (Auto) 30.1 % (20-40) 09/14/24 23:56 [place] % (Auto) 12.5 % (2-11) H 09/14/24 23:56 Eos % (Auto) 4.3 % (0-4) H 09/14/24 23:56 Baso % (Auto) 0.4 % (0-2) 09/14/24 23:56 Lymph # (Auto) 1.7 X10*3/uL (1.2-4.9) 09/14/24 23:56 [place] # (Auto) 0.7 X10*3/uL (0.1-1.2) 09/14/24 23:56 Eos # (Auto) 0.2 X10*3/uL (0.0-0.4) 09/14/24 23:56 Baso # (Auto) 0.0 X10*3/uL (0.0-0.2) 09/14/24 23:56 Abs Immat Gran (auto) 0.01 X10*3/uL (0.00-0.03) 09/14/24 23:56 Absolute Neuts (auto) 2.9 x10*3/uL (2.0-8.3) 09/14/24 23:56 Absolute Nucleated RBC 0.000 X10*3/uL (0.0-0.012) 09/14/24 23:56 Nucleated RBC % (auto) 0.0 /100WBC (0.0-0.2) 09/14/24 23:56 PT 9.4 SEC (10.9-12.4) L 09/14/24 23:56 Whole Blood PT 11.8 sec (11.1-13.5) 09/15/24 00:00 INR 0.8 (0.9-1.1) L 09/14/24 23:56 Whole Blood INR 1.0 (0.9-1.1) 09/15/24 00:00 Sodium 139 mmol/L (135-145) 09/14/24 23:56 Potassium 4.0 mmol/L (3.3-5.1) 09/14/24 23:56 Chloride 105 mmol/L (96-108) 09/14/24 23:56 Carbon Dioxide 23 mmol/L (22-29) 09/14/24 23:56 Anion Gap 15 (12-20) 09/14/24 23:56 BUN 14 mg/dL (9-16) 09/14/24 23:56 Creatinine 0.89 mg/dL (0.5-1.4) 09/14/24 23:56 Estim Creat Clear Calc 85.1 09/14/24 23:56 Estimated GFR > 60 09/14/24 23:56 POC Glucose 150 mg/dL (60-115) H 09/14/24 23:59 Random Glucose 128 mg/dL (60-115) H 09/14/24 23:56 Estimat Average Glucose 120 mg/dL 09/14/24 23:56 Hemoglobin A1c % 5.8 % (<6.0) 09/14/24 23:56 Calcium 9.2 mg/dL (8.4-10.2) 09/14/24 23:56 Magnesium 2.3 mg/dL (1.6-2.6) 09/14/24 23:56 Total Bilirubin 0.4 mg/dL (0.0-1.0) 09/14/24 23:56 Direct Bilirubin 0.1 mg/dL (0.0-0.5) 09/14/24 23:56 AST 45 U/L (5-37) H 09/14/24 23:56 ALT 44 U/L (0-40) H 09/14/24 23:56 Alkaline Phosphatase 55 U/L (39-117) 09/14/24 23:56 Troponin I High Sens 12.0 ng/L (<3.5-35.0) 09/14/24 23:56 Total Protein 7.5 g/dL (6.5-8.0) 09/14/24 23:56 Albumin 4.1 g/dL (3.5-5.0) 09/14/24 23:56 Triglycerides 51 mg/dL (<150) 09/15/24 04:36 Cholesterol 237 mg/dL (<200) H 09/15/24 04:36 LDL Cholesterol, Calc 145 mg/dL (<100) H 09/15/24 04:36 HDL Cholesterol 82 mg/dL (>40) 09/15/24 04:36 Urine Opiates Screen Not Detected (Not Detect) 09/15/24 02:04 Ur Buprenorphine Scrn Not Detected ng/mL (Not Detect) 09/15/24 02:04 Ur Oxycodone Screen Not Detected ng/mL (Not Detect) 09/15/24 02:04 Urine Methadone Screen Not Detected ng/mL (Not Detect) 09/15/24 02:04 Urine Fentanyl Screen Not Detected (Not Detect) 09/15/24 02:04 Ur Barbiturates Screen Not Detected (Not Detect) 09/15/24 02:04 Ur Phencyclidine Scrn Not Detected (Not Detect) 09/15/24 02:04 Ur Amphetamines Screen Not Detected (Not Detect) 09/15/24 02:04 U Benzodiazepines Scrn Not Detected (Not Detect) 09/15/24 02:04 Urine Cocaine Screen Not Detected (Not Detect) 09/15/24 02:04 U Marijuana (THC) Screen POSITIVE (Not Detect) H 09/15/24 02:04 Ethyl Alcohol 20 mg/dL 09/14/24 23:[address] 09/15/24 00:00 IMPRESSION: *No acute intracranial abnormalities. No intracranial hemorrhage or acute infarcts identified. *Mild chronic microangiopathic ischemic changes. This critical result was discussed with Ranjana Davila MD by telephone at 09/15/2024 12:26 PM EST and it was ascertained that the content and urgency of the report was understood at the time of direct communication. Electronically signed by: Cristofer Dill MD 09/15/2024 12:29 AM EST Head/Neck CTA 09/15/24 00:00 IMPRESSION: IV contrast enhanced CT of the head: *No acute intracranial abnormalities. *Mild chronic microangiopathic ischemic changes. CT angiography head: *No intracranial large vessel occlusions. *Nonocclusive mild segmental calcific atherosclerosis of the cavernous portions of the internal carotid arteries. CT angiography neck: *No high-grade stenoses. *Nonocclusive eccentric nonulcerative mixed calcific and noncalcific atherosclerotic plaque at the origins of the left and right internal carotid arteries. *Nonocclusive nonulcerative segmental atherosclerosis of the common carotid arteries. This result was discussed with Ranjana Davila MD by telephone at 09/15/2024 1:01 AM EST and it was ascertained that the content and urgency of the report was understood at the time of direct communication. Electronically signed by: Cristofer Dill MD 09/15/2024 01:03 AM EST RP Brain MRI 09/15/24 14:56 IMPRESSION: No acute ischemia/stroke. Small vessel occlusive disease. Old microhemorrhages related to chronic hypertension and less likely amyloid microangiopathy Electronically signed by: Mehdi Stack MD 09/15/2024 03:38 PM EST RP Discharge Plan Discharge Patient Disposition: Home Health Service Discharge Diagnosis: TIA hypertension excess alcohol intake Referrals: eHron Mccracken MD [Primary Care Provider] - 1 Week Discharge Medications: New atorvastatin 40 mg Tablet 40 mg PO BEDTIME Qty: 30 0RF amlodipine 5 mg Tablet 5 mg PO DAILY Qty: 30 0RF Protocol: Hold for SBP< HOLD for SBP < : 90 aspirin 81 mg Tablet,Delayed Release (Dr/Ec) 81 mg PO DAILY Qty: 30 0RF losartan 25 mg Tablet 25 mg PO DAILY Qty: 30 0RF Protocol: Hold for SBP< HOLD for SBP < : 90 Continued ibuprofen 200 mg Tablet 600 mg PO BEDTIME Discharge Orders: Discharge Order (Routine); Ordered 09/15/24 Ordered By: Babatunde Yates Diet: Low salt diet Activity on Discharge: As tolerated Stand Alone Forms: Patient Portal Discharge page Print Language: Libyan Other Ambulatory Orders: Basic Metabolic Panel (Routine) Timeframe: 1 Week Facility: [facility] - Location: Laboratory Ordered By: Babatunde Yates Care Plan Goals: stroke prevention Health Concerns: TIA hypertension excess alcohol intake Plan of Treatment: take amlodipine 5 mg daily PLUS losartan 25 mg daily; check labs [BMP] in 2 weeks take aspirin 81 mg daily take atorvastatin 40 mg daily stop drinking alcohol Please follow up with your primary care doctor within 1 week. Return to the hospital if you experience recurrent or worsening symptoms. Assessment: See Discharge Summary.
== END 2024-09-15 17:57 | disposition home health service (06) ==
LOC: HO.ED 09-15 00:52 → HO.EDOVER 09-15 02:51 → HO.IMC 09-15 07:45
PROVIDERS: Admitting Provider Student in an Organized Health Care Education/Training Program; Emergency Provider Emergency Medicine; PCP Internal Medicine; Visit Provider Family Medicine
DX: G45.9 Transient cerebral ischemic attack, unspecified (principal); I16.0 Hypertensive urgency; R20.0 Anesthesia of skin; R20.2 Paresthesia of skin; R26.81 Unsteadiness on feet; F10.10 Alcohol abuse, uncomplicated; I10 Essential (primary) hypertension; Z79.899 Other long term (current) drug therapy
CPT/HCPCS: 36415; 70450; 70496; 70498; 70551; 80048; 80061; 80076; 80307; 82947; 83036; 83735; 84484; 85025; 85610; 93005; 96372; 97161; 97165; 99222; 99285; J1650; Q9967

== ENCOUNTER → 2024-09-15 00:01 | Outpatient (BNV) | payer MEDICARE, SELFPAY | PROVIDERS: Admitting Provider Student in an Organized Health Care Education/Training Program; Emergency Provider Emergency Medicine; PCP Internal Medicine; Visit Provider Internal Medicine Cardiovascular Disease | DX: I45.10 Unspecified right bundle-branch block (principal); R94.31 Abnormal electrocardiogram [ECG] [EKG] | CPT/HCPCS: 93010 ==

== ENCOUNTER 2024-09-15 02:31 | Outpatient (BNV) | payer MEDICARE, SELFPAY | END 2024-09-15 14:56 | PROVIDERS: Admitting Provider Student in an Organized Health Care Education/Training Program; Emergency Provider Emergency Medicine; PCP Internal Medicine; Visit Provider Radiology Diagnostic Radiology | DX: I61.0 Nontraumatic intracerebral hemorrhage in hemisphere, subcortical (principal) | CPT/HCPCS: 70551 ==

== ENCOUNTER → 2024-09-15 02:31 | Outpatient (BNV) | payer MEDICARE, SELFPAY | PROVIDERS: Admitting Provider Student in an Organized Health Care Education/Training Program; Emergency Provider Emergency Medicine; PCP Internal Medicine; Visit Provider Psychiatry & Neurology Neurology | DX: R20.0 Anesthesia of skin (principal); R20.2 Paresthesia of skin | CPT/HCPCS: 99222 ==

== ENCOUNTER → 2024-09-15 02:31 | Outpatient (BNV) | payer MEDICARE, SELFPAY | PROVIDERS: Admitting Provider Student in an Organized Health Care Education/Training Program; Emergency Provider Emergency Medicine; PCP Internal Medicine; Visit Provider Student in an Organized Health Care Education/Training Program | DX: G45.9 Transient cerebral ischemic attack, unspecified (principal); I16.0 Hypertensive urgency; R20.0 Anesthesia of skin; R20.2 Paresthesia of skin; F10.10 Alcohol abuse, uncomplicated | CPT/HCPCS: 99223; 99499 ==

== ENCOUNTER 2024-09-29 10:32 | Outpatient (REF) | payer MEDICARE, SELFPAY ==
[2024-09-29 12:39] LABS: Anion Gap 13 (12-20); Blood Urea Nitrogen 12 mg/dL (9-16); Carbon Dioxide 28 mmol/L (22-29); Chloride 104 mmol/L (96-108); Estimated Glomerular Filt Rate > 60; Glucose Random 100 mg/dL (60-115); Potassium 4.1 mmol/L (3.3-5.1); Sodium 141 mmol/L (135-145)
== END 2024-09-29 10:33 | disposition home or self-care (01) ==
LOC: HO.LAB 10:32
PROVIDERS: PCP Family Medicine; Visit Provider Family Medicine
DX: I10 Essential (primary) hypertension (principal)
CPT/HCPCS: 36415; 80048

== ENCOUNTER 2024-10-16 10:42 | Emergency (ER) | payer MEDICARE, SELFPAY ==
--- NOTE | ~2024-10-16 | CT_ITS ---
EXAMINATION: CT HEAD WITHOUT CONTRAST CLINICAL INFORMATION: Headache, hypertension. COMPARISON: MRI brain 09/15/2024. CT head 09/15/2024. TECHNIQUE: Contiguous axial imaging was performed from the skull base to vertex without intravenous administration of contrast. This CT examination was performed using dose optimization techniques as appropriate, variously including the following: *Automated exposure control *Adjustment of mA and/or kV according to patient size (this includes techniques or standardized protocols for targeted exams where dose is matched to indication/reason for exam; i.e. extremities or head) *Use of iterative reconstruction technique DLP: 746 mGy-cm FINDINGS: Similar punctate hyperdense focus within the right medial parietal lobe with a density of approximately 65 Hounsfield units, 2:44. No new intracranial hemorrhage or edematous territorial infarction. The guajardo-white matter differentiation appears preserved. Proportional prominence of the ventricles and cortical sulci. Patchy hypodensities within the periventricular and deep white matter likely representing mild chronic microangopathy. No mass effect or midline shift. No acute extra-axial collections. Small chronic lacunar infarct in the left thalamus is again noted. No acute osseous abnormality. The included paranasal sinuses and mastoids are well-aerated. Similar punctate metallic density in the left temporal subcutaneous soft tissues. CT/CT head/brain wo IV con IMPRESSION: No new intracranial hemorrhage or edematous territorial infarction. Similar punctate hyperdense focus in the right medial parietal lobe.Mild chronic microangiopathic ischemic changes and chronic lacunar infarct within the left thalamus. Findings were discussed with Latoya HERRMANN at 1:22 pm on 10/16/2024. Electronically signed by: Mathew Ledezma MD 10/16/2024 01:25 PM [facility]
[2024-10-16 10:48] VITALS: BP 209/100; PULSE 82; RESP 18; TEMP 37.1; O2SAT 98; BMI 28.3
--- NOTE | 2024-10-16 10:59 | ED_ITS ---
HPI - General Adult General Chief complaint: Recheck/Abnormal Lab/Rx Stated complaint: high bp Time Seen by Provider: 10/16/24 10:59 Source: patient and family (patient's ) Mode of arrival: ambulatory Limitations: no limitations History of Present Illness ED Provider: Latoya Spring PA-C HPI narrative: Patient is a 69 year old assigned male at with a history of HTN, alcohol abuse, and TIA in presenting to the emergency department today with uncontrolled blood pressure. Patient states that he was hospitalized on 09/15/2024 for a TIA and elevated blood pressure. Patient states that ever since then he has had numbness / tingling in his extremities. Patient states that he ran out of his medications 2 days ago and has been trying to reach his new PCP to renew the scripts but he has been unable to get through to them. Patient states that his numbness felt like it was getting worse today and checked his blood pressure that showed it was too high. Patient denies any dizziness, lightheadedness, abdominal pain, nausea, vomiting, fever, chills, blurry vision, double vision, loss of vision, chest pain, difficulty breathing, shortness of breath, back pain, night sweats, pain with urination, increased urinary frequency, increased urinary urgency, blood in his urine or stool, syncope or a near syncopal episode, recent trauma or falls, bowel incontinence, bladder incontinence, or any other complaints at this time. Onset (ago): day(s) (2) Relieving factors: none Exacerbating factors: none Associated symptoms: denies other symptoms Treatments prior to arrival: none Related Data Home Medications ?Medication ?Instructions ?Recorded ?Confirmed ibuprofen 200 mg tablet 600 mg PO BEDTIME 09/15/24 09/15/24 Previous Rx's ?Medication ?Instructions ?Recorded amlodipine 5 mg tablet 5 mg PO DAILY #30 tabs 10/16/24 aspirin 81 mg tablet,delayed 81 mg PO DAILY #30 tabs 10/16/24 release atorvastatin 40 mg tablet 40 mg PO BEDTIME #30 tabs 10/16/24 losartan 25 mg tablet 25 mg PO DAILY #30 tabs 10/16/24 Allergies Allergy/AdvReac Type Severity Reaction Status Date / Time No Known Allergies Allergy Verified 10/16/24 10:52 Review of Systems 2 Constitutional: Constitutional: Reports no additional constitutional complaints, Denies chills, Denies fever(s) and Denies night sweats Eyes: Eyes: Reports no additional eye complaints, Denies blurry vision, Denies change in vision, Denies diplopia, Denies eye discharge, Denies loss of vision and Denies eye pain ENT: Denies dizziness Cardiovascular: Cardiovascular: Reports no additional cardiovascular complaints, Denies chest pain, Denies lightheadedness, Denies Loss of Consciousness and Denies dyspnea Respiratory: Respiratory: Reports no additional respiratory complaints and Denies dyspnea Gastrointestinal: Gastrointestinal: Reports no additional gastrointestinal complaints, Denies abdominal pain, Denies melena, Denies hematochezia, Denies change in bowel habits and Denies change in stool character Genitourinary: Genitourinary: Reports no additional male genitourinary complaints, Denies hematuria, Denies oliguria, Denies difficulty urinating, Denies dysuria, Denies urinary frequency, Denies urinary hesitancy, Denies urinary incontinence and Denies urinary urgency Musculoskeletal: Musculoskeletal: Reports no additional musculoskeletal complaints, Reports numbness (to upper and lower extremities) and Denies tingling Neurologic: Denies dizziness, Denies loss of vision, Reports numbness (to upper and lower extremities) and Denies tingling Psychiatric: Psychiatric: Reports no additional psychiatric complaints Endocrine: Endocrine: Reports no additional endocrine complaints Hematologic/Lymphatic: Hematologic/Lymphatic: Reports no additional hematologic/lymphatic complaints Allergic/Immunologic: Allergic/Immunologic: Reports no additional allergic/immunologic complaints PMFSH Past Medical History Attestation statement: The following information was validated with the patient. (all information validated with the patient's ) Source: old records reviewed, obtained from family (patient's provided additional history and confirmed the history provided by the patient.) and nursing notes reviewed Medical History Hypertension Social History Social History Household Members: Spouse Housing: House Alcohol intake: current Alcohol intake frequency: 3 or more drinks per day Alcohol type: beer Patient Tobacco Use Status: Former Tobacco user Advance Directives: Yes Advance Directives on File: Yes Advance Directives Date on File: 09/16/24 service: No Physical Exam ED Vital Signs: Vital Signs - 24 hr 10/16/24 10:48 10/16/24 11:42 10/16/24 12:36 Temperature 98.8 F Pulse Rate 82 67 68 Respiratory Rate 18 12 Blood Pressure 209/100 H 168/79 H 185/87 H Pulse Oximetry 98 Oxygen Delivery Method Room Air BMI result Body Mass Index 28.3 Const General: cooperative, no acute distress, alert and awake Nutritional Appearance: well nourished Orientation/consciousness: patient oriented x3 Limitations: no limitations HENMT Head: Yes normal to inspection and Yes atraumatic Ears: hearing grossly normal bilaterally and external ears normal General nose exam: Normal external nose present, no nasal discharge noted and no epistaxis Face and sinus: Yes normal facial exam, No abrasion and No laceration Mouth: Normal oral and palatal mucosa present, no drooling and no muffled voice Eyes General: appearance normal, both eyes and all related structures Periorbital: periorbital findings normal Eyelids: Yes eyelids normal Conjunctivae: conjunctivae normal Pupils: Equal, round and reactive pupils present EOM: EOMs intact bilaterally Neck Neck: Yes normal visual inspection, Yes full ROM and Yes no lymphadenopathy Chest Chest palpation & inspection: normal inspection of the chest Resp Effort & Inspection: normal respiratory effort and able to speak in complete sentences GI Inspection: Yes normal to inspection Neuro General: patient oriented x3 and moves all extremities Cranial nerves: Yes Equal, round and reactive pupils present Cognition (Neuro): normal cognition Extrem General: Yes normal to inspection, Yes full ROM and Yes capillary refill normal Psych Appearance: grossly normal Mental Status: mental status grossly normal Affect: normal affect Attitude: cooperative Thought process: Normal thought process present Thought content: Normal thought content present Insight: Good insight present (Psych) NIH Stroke Scale Internal: Initial- Upon Arrival Time: 10:59 Level of Consciousness: Alert Level of Consciousness Questions: Answers both questions correctly Level of Consciousness Commands: Performs both tasks correctly Best Gaze: Normal Visual: No visual loss Facial Palsy: Normal Motor Arm (Right): No drift Motor Arm (Left): No drift Motor Leg (Right): No drift Motor Leg (Left): No drift Limb Ataxia: Absent Sensory: Normal Best Language: No aphasia Dysarthia: Normal Extinction and Inattention: No abnormality Score: 0 Medications Administered Discontinued Medications Generic Name Dose Route Start Last Admin Trade Name Freq PRN Reason Stop Dose Admin Amlodipine Besylate 5 mg 10/16/24 11:00 10/16/24 11:05 Amlodipine Besylate 5 Mg Tablet PO 10/16/24 11:01 5 mg ONCE ONE Administration Protocol Losartan Potassium 25 mg 10/16/24 11:00 10/16/24 11:05 Losartan Potassium 25 Mg Tablet PO 10/16/24 11:01 25 mg ONCE ONE Administration Protocol Medical Decision Making Medical Decision Making [facility] Narrative: Patient is a 69 year old assigned male at with a history of HTN, alcohol abuse, and TIA in presenting to the emergency department today with uncontrolled blood pressure. Patient's physical exam was unremarkable. Patient's blood work was unremarkable. Patient's EKG was unremarkable. Patient's head CT showed no acute process and is similar to the previous head CT the patient had in September of 2024. The radiologist called and spoke with me about the findings and recommended an outpatient brain MRI but stated there is nothing acute or worsening when compared to previous imaging at this time. I explained my physical exam findings as well as all test results to the patient and the patient's . I answered all questions asked by the patient and the patient's . Patient received his daily dose of Amlodipine and Losartan which, upon re- evaluation, he stated it helped his symptoms significantly. I stressed the importance of the patient taking his medication as directed (either prescribed or as the over the counter packaging recommends). I stressed the importance of the patient following up with his primary care provider and a neurologist. I stressed the importance of the patient returning to the emergency department immediately if his symptoms were to worsen or if he were to develop any dizziness, shortness of breath, difficulty breathing, chest pain, blurry vision, loss of vision, nausea, vomiting, abdominal pain, fever, chills, back pain, or any other complaints. Patient and the patient's verbalized agreement and understanding with this treatment plan and discharge. Differential Diagnosis Differential Diagnoses: The differential diagnosis associated with the presentation includes Encounter for medication refill Hypertension Admission/Observation Consideration of admission/observation: Escalation of care including admission/observation considered Patient would have been admitted to the hospital had his work up had any findings where hospital admission was appropriate and his clinical presentation warranted hospital admission. Lab Data [facility] Lab Attestation statement: I reviewed the patient's lab results. My interpretation of these results are in the [facility] Rationale portion of this note. 10/16/24 11:41 10/16/24 11:41 Labs: Lab Results 10/16/24 Range/Units 11:41 WBC 4.6 L (4.8-10.8) X10*3/uL RBC 4.91 (4.60-5.80) X10*6/uL Hgb 15.6 (14.0-18.0) g/dl Hct 44.7 (42.0-52.0) % MCV 91.0 (80.0-98.0) fL MCH 31.8 (27.0-33.0) pg MCHC 34.9 (31.0-36.0) g/dl RDW 11.8 (11.0-16.0) % Plt Count 266 (160-400) X10*3/uL MPV 8.9 L (9.4-12.4) fL Immature Gran % (Auto) 0.2 (0.0-0.4) % Neut % (Auto) 63.6 (45-73) % Lymph % (Auto) 20.7 (20-40) % [place]ell % (Auto) 13.6 H (2-11) % Eos % (Auto) 1.7 (0-4) % Baso % (Auto) 0.2 (0-2) % Lymph # (Auto) 1.0 L (1.2-4.9) X10*3/uL [place]ell # (Auto) 0.6 (0.1-1.2) X10*3/uL Eos # (Auto) 0.1 (0.0-0.4) X10*3/uL Baso # (Auto) 0.0 (0.0-0.2) X10*3/uL Abs Immat Gran (auto) 0.01 (0.00-0.03) X10*3/uL Absolute Neuts (auto) 2.9 (2.0-8.3) x10*3/uL Absolute Nucleated RBC 0.000 (0.0-0.012) X10*3/uL Nucleated RBC % (auto) 0.0 (0.0-0.2) /100WBC Sodium 138 (135-145) mmol/L Potassium 4.0 (3.3-5.1) mmol/L Chloride 104 (96-108) mmol/L Carbon Dioxide 24 (22-29) mmol/L Anion Gap 14 (12-20) BUN 11 (9-16) mg/dL Creatinine 0.81 (0.5-1.4) mg/dL Estim Creat Clear Calc 93.9 Estimated GFR > 60 Random Glucose 101 (60-115) mg/dL Calcium 9.6 D (8.4-10.2) mg/dL Magnesium 2.4 (1.6-2.6) mg/dL Total Bilirubin 0.6 (0.0-1.0) mg/dL AST 47 H (5-37) U/L ALT 44 H (0-40) U/L Alkaline Phosphatase 57 (39-117) U/L Total Protein 7.2 (6.5-8.0) g/dL Albumin 4.0 (3.5-5.0) g/dL Independent Interpretation I performed an independent interpretation of an: EKG and CT Scan Interpretation: My interpretation is in agreement with the radiologist's impression of this imaging study. L EXAMINATION: CT HEAD WITHOUT CONTRAST CLINICAL INFORMATION: Headache, hypertension. COMPARISON: MRI brain 09/15/2024. CT head 09/15/2024. TECHNIQUE: Contiguous axial imaging was performed from the skull base to vertex without intravenous administration of contrast. This CT examination was performed using dose optimization techniques as appropriate, variously including the following: *Automated exposure control *Adjustment of mA and/or kV according to patient size (this includes techniques or standardized protocols for targeted exams where dose is matched to indication/reason for exam; i.e. extremities or head) *Use of iterative reconstruction technique DLP: 746 mGy-cm FINDINGS: Similar punctate hyperdense focus within the right medial parietal lobe with a density of approximately 65 Hounsfield units, 2:44. No new intracranial hemorrhage or edematous territorial infarction. The guajardo- white matter differentiation appears preserved. Proportional prominence of the ventricles and cortical sulci. Patchy hypodensities within the periventricular and deep white matter likely representing mild chronic microangopathy. No mass effect or midline shift. No acute extra-axial collections. Small chronic lacunar infarct in the left thalamus is again noted. No acute osseous abnormality. The included paranasal sinuses and mastoids are well-aerated. Similar punctate metallic density in the left temporal subcutaneous soft tissues. CT/CT head/brain wo IV con IMPRESSION: No new intracranial hemorrhage or edematous territorial infarction. Similar punctate hyperdense focus in the right medial parietal lobe.Mild chronic microangiopathic ischemic changes and chronic lacunar infarct within the left thalamus. Findings were discussed with Latoya HERRMANN at 1:22 pm on 10/16/2024. Electronically signed by: Mathew Ledezma MD 10/16/2024 01:25 PM [facility] Dictated By: Mathew Ledezma Signed By: Electronically signed by Mathew Ledezma 10/16/24 1325 Vent. Rate: 067 BPM Atrial Rate: 067 BPM P-R Int: 166 ms QRS Dur: 148 ms QT Int: 416 ms P-R-T Axes: 052 -25 -10 degrees QTc Int: 439 ms Normal sinus rhythm Right bundle branch block Minimal voltage criteria for LVH, may be normal variant (R in aVL) When compared with ECG of 15-SEP-2024 00:37, Right bundle branch block has replaced Non-specific intra-ventricularconduction block DD/ 1130 Radiology Impression Discussion of test interpretation with radiology: I have reviewed the radiologist's reading. Independent Historian Clinical information obtained from an independent historian. History obtained from or confirmed by: Spouse (patient's provided additional history and confirmed the history provided by the patient.) Chronic Conditions Patient?s care impacted by: Hypertension Discharge Plan Discharge Clinical Impression: Hypertension, Medication refill Patient Disposition: Home, Self-Care Instructions: Chronic Hypertension (DC), Medicine Refill (ED) Additional Instructions: Your work up today was reassuring that you have no emergent condition. The CT of your head showed the same findings as present during your last visit and nothing new - per the radiologist. You should follow up with your primary care provider and a neurologist about this results. The radiologist recommended considering an outpatient brain MRI. Please take your mediation as prescribed. You got your daily dose of Amlodipine and Losartan while in the department - you do NOT need to take these again today (10/16/2024). Follow up with your primary care provider. Return to the emergency department immediately if your symptoms worsen or if you develop any dizziness, shortness of breath, difficulty breathing, chest pain, blurry vision, loss of vision, nausea, vomiting, abdominal pain, fever, chills, back pain, or any other complaints. Prescriptions: Continued atorvastatin 40 mg Tablet 40 mg PO BEDTIME Qty: 30 3RF amlodipine 5 mg Tablet 5 mg PO DAILY Qty: 30 3RF Protocol: Hold for SBP< HOLD for SBP < : 90 aspirin 81 mg Tablet,Delayed Release (Dr/Ec) 81 mg PO DAILY Qty: 30 3RF losartan 25 mg Tablet 25 mg PO DAILY Qty: 30 3RF Protocol: Hold for SBP< HOLD for SBP < : 90 No Action ibuprofen 200 mg Tablet 600 mg PO BEDTIME Referrals: [facility] Neuro[facility] [Provider Group] (Call to establish and follow up with a neurologist.) Rob Bruner MD [Primary Care Provider] - Print Language: Icelandic
[2024-10-16] MEDS: amLODIPine Besylate 5 MG TABLET PO (11:05)
[2024-10-16] MEDS: Losartan Potassium 25 MG TABLET PO (11:05)
--- NOTE | 2024-10-16 11:21 | ECG_ITS ---
Test Reason : HTN Blood Pressure : / mmHG Vent. Rate : 067 BPM Atrial Rate : 067 BPM P-R Int : 166 ms QRS Dur : 148 ms QT Int : 416 ms P-R-T Axes : 052 -25 -10 degrees QTc Int : 439 ms Normal sinus rhythm Right bundle branch block Minimal voltage criteria for LVH, may be normal variant ( R in aVL ) Abnormal ECG When compared with ECG of 15-SEP-2024 00:37, Right bundle branch block has replaced Non-specific intra-ventricular conduction block Referred By: Latoya Spring Electronically Signed By:DA MENSAH MD
[2024-10-16 11:42] VITALS: BP 168/79; PULSE 67
[2024-10-16 11:49] LABS: MANUAL DIFF FLAG NO
[2024-10-16 11:50] LABS: Basophils Percent Auto 0.2 % (0-2); Eosinophils Absolute Auto 0.1 X10*3/uL (0.0-0.4); Eosinophils Percent Auto 1.7 % (0-4); Hematocrit 44.7 % (42.0-52.0); Hemoglobin 15.6 g/dl (14.0-18.0); Imm Gran Abs Auto 0.01 X10*3/uL (0.00-0.03); Imm Gran Pct Auto 0.2 % (0.0-0.4); Lymphocytes Percent Auto 20.7 % (20-40); Mean Corpuscular HGB Conc 34.9 g/dl (31.0-36.0); Mean Corpuscular Hemoglobin 31.8 pg (27.0-33.0); Mean Platelet Volume 8.9 fL (9.4-12.4); Monocytes Absolute Auto 0.6 X10*3/uL (0.1-1.2); Monocytes Percent Auto 13.6 % (2-11); Neutrophils Absolute Auto 2.9 x10*3/uL (2.0-8.3); Neutrophils Percent Auto 63.6 % (45-73); Platelet Count 266 X10*3/uL (160-400); Red Blood Count 4.91 X10*6/uL (4.60-5.80); Red Cell Distribution Width 11.8 % (11.0-16.0); White Blood Count 4.6 X10*3/uL (4.8-10.8)
[2024-10-16 12:08] LABS: Alanine Aminotransferase 44 U/L (0-40); Alkaline Phosphatase 57 U/L (39-117); Anion Gap 14 (12-20); Aspartate Amino Transferase 47 U/L (5-37); Bilirubin Total 0.6 mg/dL (0.0-1.0); Blood Urea Nitrogen 11 mg/dL (9-16); Calcium 9.6 mg/dL (8.4-10.2); Carbon Dioxide 24 mmol/L (22-29); Chloride 104 mmol/L (96-108); Creatinine Clr Calc Pharmacy 93.9; Estimated Glomerular Filt Rate > 60; Glucose Random 101 mg/dL (60-115); Magnesium 2.4 mg/dL (1.6-2.6); Sodium 138 mmol/L (135-145); Total Protein 7.2 g/dL (6.5-8.0)
[2024-10-16 12:36] VITALS: BP 185/87; PULSE 68; RESP 12
[2024-10-16 14:03] VITALS: BP 174/81; PULSE 83; RESP 13; TEMP 36.1; O2SAT 97
== END 2024-10-16 14:03 | disposition home or self-care (01) ==
PROVIDERS: Physician Assistant Medical; Emergency Provider Emergency Medicine Emergency Medical Services; PCP Family Medicine
DX: I10 Essential (primary) hypertension (principal); I45.10 Unspecified right bundle-branch block; R94.31 Abnormal electrocardiogram [ECG] [EKG]; Z76.0 Encounter for issue of repeat prescription; Z86.73 Personal history of transient ischemic attack (TIA), and cerebral infarction without residual deficits; Z87.891 Personal history of nicotine dependence; Z79.899 Other long term (current) drug therapy
CPT/HCPCS: 36415; 70450; 80053; 83735; 85025; 93005; 96374; 99284

== ENCOUNTER → 2024-10-16 11:21 | Outpatient (BNV) | payer MEDICARE, SELFPAY | PROVIDERS: Emergency Provider Emergency Medicine Emergency Medical Services; PCP Family Medicine; Visit Provider Internal Medicine Cardiovascular Disease | DX: I10 Essential (primary) hypertension (principal); I45.10 Unspecified right bundle-branch block; R94.31 Abnormal electrocardiogram [ECG] [EKG] | CPT/HCPCS: 93010 ==

== ENCOUNTER 2024-10-18 09:47 | Outpatient (AMB) | payer MEDICARE, SELFPAY ==
--- NOTE | 2024-10-18 09:59 | A.OFFPC_ITS ---
Vital Signs 10/18/24 10:07 Height 5 ft 9 in Weight 191 lb 8 oz BMI 28.3 BP 140/80 H Blood Pressure Location Rt brachial Position Sitting Respiration 16 Pulse 75 Pulse Source Pulse Oximeter Pulse Oximetry (%) 99 Oxygen Delivery Method Room Air Intake Visit Reasons: [employer] RO[employer] / Est. care Intake Note: establish care Allergies No Known Allergies Allergy (Verified 10/18/24 10:00) Medication List - Last Reconciled 10/18/24 by Rob Bruner MD amlodipine 5 mg See Protocol PO DAILY aspirin 81 mg PO DAILY atorvastatin 40 mg PO BEDTIME losartan 25 mg See Protocol PO DAILY Tobacco use date assessed: 10/18/24 Fall risk assessment: 1 Fall in past year Last assessed Fall Risk: 10/18/24 Dental Screening Dental Screen Date: 10/18/24 Did you have a dental visit in the last 12 months?: No Did you have a dental problem in the last 6 months where you did not have access to dental care?: No Was dental information given to patient?: Patient has dentist HPI [facility] / Est. care HPI Details New?patient Prior?PCP: Heron Dalton in [facility] Last?office?visit/CPE: 8 yrs Acute?issue(s): Recent CVA. R sided numbness & tingling. 10/16/24 Recent ED visit for High BP PMHx: HTN, TIA & CVA in 09/2024, [place] SurgHx: Cataracts SocHx: Nonsmoker. ETOH + and weaning down now at 4 beers per day. PFSH Medical History (Updated 10/18/24 @ 11:13 by Rizwan Olivera) Cataract (lens) fragments in eye following cataract surgery Hypertension Surgical History (Updated 10/18/24 @ 10:04 by Becka Maynard CMA) H/O vasectomy History of rotator cuff surgery Family History (Updated 10/18/24 @ 10:06 by Becka Maynard CMA) Sister Diabetes Social History (Updated 10/18/24 @ 10:06 by Becka Maynard CMA) Household Members: Spouse Housing: House Alcohol intake: current Alcohol intake frequency: 3 or more drinks per day Alcohol type: beer Patient Tobacco Use Status: Former Tobacco user e-Cigarette/Vaping Use: Never Used Second Hand Smoke Exposure: No Use of substances other than those prescribed or required for medical reasons: No Advance Directives Date on File: 09/16/24 service: No Current occupational status: retired 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 1. Little interest or pleasure in doing things: not at all 2. Feeling down, depressed, or hopeless: not at all 3. Trouble falling or staying asleep, or sleeping too much: not at all 4. Feeling tired or having little energy: more than half the days 5. Poor appetite or overeating: not at all 6. Feeling bad about yourself - or that you are a failure or have let yourself or your family down: not at all 7. Trouble concentrating on things, such as reading the newspaper or watching t elevision: not at all 8. Moving or speaking so slowly that other people could have noticed. Or the opposite - being so fidgety or restless that you have been moving around a lot more than usual: not at all 9. Thoughts that you would be better off or of hurting yourself in some way: not at all Total score: 2 Depression Screening Interpretation: Negative Depression Screening Done: Yes 17077 - PHQ-9 Billing: Yes Source: Developed by Drs. Walt Tenorio, Tg Corrales, Charli Casillas and colleagues, with an educational hussein from [employer]. Thrive Questionnaire Date Thrive assessed: 10/18/24 I am a: Patient What is your living situation today?: I have a steady place to live Within the past 12 months, did the food you bought not last and you didn't have the money to get more?: Never true Within the past 12 months, did you worry whether your food would run out before you got money to buy more?: Never true Do you have trouble paying for medicines?: I choose not to answer this question Do you have trouble getting transportation to medical appointments?: No Do you have trouble paying your heating and electricity bill?: No Do you have trouble taking care of your child, family member or friend?: I choose not to answer this question Do you have trouble with day-to-day activities such as bathing, preparing meals, shopping, managing finances, etc.?: I choose not to answer this question Are you currently unemployed and looking for a job?: No Are you interested in more education?: No Please select the resources that you would like help with: None Currently or been in a relationship where the following occur: I choose not to answer THRIVE Score: 0 AUDIT C Alcohol Use Questionnaire (AUDIT-C) 1. How often do you have a drink containing alcohol?: 4 or more times a week 2. How many drinks containing alcohol do you have on a typical day when you are drinking?: 3 or 4 3. How often do you have six or more drinks on one occasion?: Monthly Total Score: 7 MIGUELINA-7 AMB Questionnaire MIGUELINA-7 Date MIGUELINA - 7 assessed: 10/18/24 Feeling nervous, anxious, or on edge: 2 = More than half the days Not being able to stop or control worryin = Not at all Worrying too much about different things: 0 = Not at all Trouble relaxin = Not at all Being so restless that it is hard to sit still: 0 = Not at all Becoming easily annoyed or irritable: 0 = Not at all Feeling afraid as if something awful might happen: 0 = Not at all Total MIGUELINA-7 score (0-4 normal; 5-9 mild; 10-14 moderate; 15-21 severe): 2 Source: Developed by Drs. Walt Tenorio, Tg Corrales, Charli Casillas and colleagues, with an educational hussein from [employer]. MIGUELINA-7 Assessment Billing MIGUELINA-7 Assessment Tool: MIGUELINA-7 Assessment 88969 Review of Systems Const Denies chills, Denies fatigue, Denies fever(s), Denies headache(s) and Denies weakness ENT Denies dizziness and Denies headache(s) Card Denies chest pain, Denies lightheadedness, Denies dyspnea and Denies other (Palpitations) Resp Denies cough, Denies dyspnea, Denies wheezing and Denies other ( shortness of breath) Musc Denies numbness and Denies tingling Neuro Denies dizziness, Denies headache(s), Denies numbness, Denies tingling, Denies paresthesias and Denies weakness Psych Denies anxiety and Denies depression Endo Denies fatigue Aller/Immun Denies wheezing Physical exam (Primary Care) Vital Signs: Last Vital Signs Pulse 75 10/18/24 10:07 Resp 16 10/18/24 10:07 BP 140/80 H 10/18/24 10:07 Pulse Ox 99 10/18/24 10:07 Oxygen Delivery Method Room Air 10/18/24 10:07 BMI result Body Mass Index 28.3 Tobacco/Smoking Status: Tobacco use Status Tobacco use date assessed 10/18/24 10/18/24 10:07 Patient Tobacco Use Status Former Tobacco user 10/18/24 10:07 e-Cigarette/Vaping Use Never Used 10/18/24 10:07 PHQ-9: PHQ-9 Score PHQ-9: Total score 2 10/18/24 10:40 Depression Screening Interpretation: Negative Thrive Assessment: Date of Thrive Assessment Date Thrive assessed 10/18/24 10/18/24 10:07 Currently or been in a relationship where the following occur: I choose not to answer Const General: no acute distress and well developed Nutritional Appearance: well nourished Orientation/consciousness: patient oriented x3 HENMT Head: Yes normocephalic and Yes atraumatic Eyes General: appearance normal, both eyes and all related structures Pupils: Equal, round and reactive pupils present EOM: EOMs intact bilaterally Resp Effort & Inspection: normal respiratory effort Auscultation: clear to auscultation bilaterally Cardio Rate: regular rate Rhythm: regular rhythm Heart sounds: S1 normal heart sound present, S2 normal heart sound present, no gallops, no murmurs and no rubs Neuro General: patient oriented x3 and gait normal Cranial nerves: Yes CN's II-XII intact bilaterally and Yes Equal, round and reactive pupils present Motor exam (neuro): 5/5 motor strength present throughout Psych Affect: normal affect Coding Level of Care Code New Pt Level 4 (34950) Diagnoses CVA (cerebral vascular accident) I63.9 Hypertension I10 Brain TIA G45.9 Alcohol abuse F10.10 Right sided numbness R20.0 Laboratory exam ordered as part of routine general medical examination Z00.00 Paresthesia R20.2 Additional Codes MIGUELINA-7 Assessment Billing - MIGUELINA-7 Assessment Tool: MIGUELINA-7 Assessment 41526 ([id number]) PHQ-9 - 12467 - PHQ-9 Billing: Yes ([id number]) Assessment & Plan Assessment & Plan (1) CVA (cerebral vascular accident): Code(s): I63.9 - Cerebral infarction, unspecified Category: Medical Plan: History?of?left?thalamic?stroke?with?some?residual?ri ght?hand?and?leg?numbness?and?tingling.??Motor?appears?uninfected. Was?told?initially?that?he?had?had?a?TIA?but?recent?imaging?does?show?stroke?in? thalamus. He?is?on?aspirin?and?atorvastatin?and?work ing?on?blood?pressure?control?with?losartan?and?amlodipine. Blood?pressure?is?still?little?high Will?work?to?improve?this-see?below (2) Hypertension: Code(s): I10 - Essential (primary) hypertension Category: Medical Plan: Blood?pressures?are?too?high. Will?increase?losartan?from?25?mg?50?mg?daily?and?he?will?continue?amlodipine?as ?prescribed. (3) Brain TIA: Code(s): G45.9 - Transient cerebral ischemic attack, unspecified Category: Medical Plan: See?above (4) Alcohol abuse: Code(s): F10.10 - Alcohol abuse, uncomplicated Category: Social Hx Plan: He?is?working?on?weaning?down?and?I?encouraged?this (5) Right sided numbness: Code(s): R20.0 - Anesthesia of skin Category: Medical Plan: Secondary?to?left-sided?thalamic?stroke Continue?secondary?stroke?prevention?in?will?try?some?gabapentin (6) Laboratory exam ordered as part of routine general medical examination: Code(s): Z00.00 - Encounter for general adult medical examination without abnormal findings Category: Medical Plan: Check?labs (7) Paresthesia: Code(s): R20.2 - Paresthesia of skin Category: Medical Plan: As?above Medications: New gabapentin 300 mg PO BEDTIME 30 days 30 caps 2RF Changed From losartan 25 mg See Protocol PO DAILY 30 tabs 3RF To losartan 50 mg See Protocol PO DAILY 90 days 90 tabs 3RF
[2024-10-18 10:07] VITALS: BP 140/80; PULSE 75; RESP 16; O2SAT 99; BMI 28.3
== END 2024-10-18 14:02 | disposition home or self-care (01) ==
PROVIDERS: PCP Family Medicine; Visit Provider Family Medicine
DX: I63.9 Cerebral infarction, unspecified (principal); I10 Essential (primary) hypertension; G45.9 Transient cerebral ischemic attack, unspecified; F10.10 Alcohol abuse, uncomplicated; R20.0 Anesthesia of skin; Z00.00 Encounter for general adult medical examination without abnormal findings; R20.2 Paresthesia of skin

== ENCOUNTER → 2024-10-18 09:47 | Outpatient (BNVA) | payer MEDICARE, SELFPAY | PROVIDERS: PCP Family Medicine; Visit Provider Family Medicine | DX: I63.9 Cerebral infarction, unspecified (principal); I10 Essential (primary) hypertension; G45.9 Transient cerebral ischemic attack, unspecified; F10.10 Alcohol abuse, uncomplicated; R20.0 Anesthesia of skin; R20.2 Paresthesia of skin | CPT/HCPCS: 96127; 99202 ==

== ENCOUNTER 2024-11-17 11:20 | Outpatient (REF) | payer MEDICARE, SELFPAY ==
[2024-11-17 18:52] LABS: TSH reflex Free T4 1.03 uIU/mL (0.32-4.0)
[2024-11-17 19:08] LABS: Vitamin B12 290 pg/mL (200-900)
[2024-11-23 13:53] LABS: Vitamin B1 9 nmol/L (8-30)
== END 2024-11-17 11:21 | disposition home or self-care (01) ==
LOC: HO.HKASLDS 11:20
PROVIDERS: PCP Family Medicine; Visit Provider Psychiatry & Neurology Neurology
DX: R20.0 Anesthesia of skin (principal); R20.2 Paresthesia of skin; G47.10 Hypersomnia, unspecified
CPT/HCPCS: 36415; 82607; 82746; 84425; 84443; 99202

== ENCOUNTER 2024-11-17 11:20 | Outpatient (AMB) | payer MEDICARE, SELFPAY ==
--- NOTE | 2024-11-17 11:28 | A.OFFVIS_ITS ---
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 He has been referred by [facility] after his 2 recent visits. In Sep 2024 he had rigt face hand an dleg numbness and tingling . He was evaluated for CVA - MRI and Ct did not show any new findingds . His BP was high . He was discharged on aspirin 81mg qd atorvostatin 40mg alodipine and losartan . since Sep 2024 he had residual numbness in right corner of his mouth and tingue throat , right hand . In Oct 2024 he was in ER again for increase in numbness- he ran out of his BP medications and his BP was very high. His CT brain did not show any new changes. He was restarted on meds and discharged. He says the right hand numbness and tingling was intermittent even prior to his Sep 2024 admission and is increased when he sleeps. He grinds his teeth and snores. He has some daytime fatigue He sleeps at 9pm and wakes up at 3.30 am to go work at 5am . 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 He denies frequent migraines. He had right rotator cuff surgery many years ago and had another injury after that ,he still has residual pain weakness stiffness. [facility] Medical History (Updated 11/17/24 @ 12:06 by Jacque Alcala MD) Rotator cuff arthropathy Hypersomnia Snoring Numbness and tingling in right hand Bilateral cataracts Cataract (lens) fragments in eye following cataract surgery Hypertension Surgical History H/O vasectomy History of rotator cuff surgery Family History Sister Diabetes Social History Household Members: Spouse Housing: House Alcohol intake: current Alcohol intake frequency: 3 or more drinks per day Alc ohol type: beer Patient Tobacco Use Status: Former Tobacco user e-Cigarette/Vaping Use: Never Used Second Hand Smoke Exposure: No Advance Directives Date on File: 09/16/24 service: No Current occupational status: retired 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 Current occupational exposures/hazards: Yes Cognitive needs: No Hearing needs: Yes Vision needs: Yes Physical Exam Vital Signs: Last Vital Signs BP 170/78 H 11/17/24 11:29 BMI result Body Mass Index 28.2 Const General: cooperative and comfortable Nutritional Appearance: average body habitus Orientation/consciousness: patient oriented x3 Eyes Pupils: Equal, round and reactive pupils present Neuro General: patient oriented x3, gait normal, tone normal and moves all extremities Cranial nerves: Yes Facial sensation intact/muscles of mastication intact, Yes Equal, round and reactive pupils present, Yes Bilaterally intact EOM present, Yes Nystagmus not present, Yes Normal facial strength present, Yes Midline tongue present and Yes Symmetric palate elevation present Cognition (Neuro): normal cognition Gait exam (Neuro): Normal gait present Motor exam (neuro): 5/5 motor strength present throughout and Normal motor muscle tone present throughout Deep tendon reflexes (DTR's): Right triceps reflex intensity grade: 2+, Left triceps reflex intensity grade: 2+, Rt Biceps (C5, C6): 2+, Left biceps reflex intensity grade: 2+, Right brachioradialis reflex intensity grade: 2+, Left brachioradialis reflex intensity grade: 2+, Right patellar reflex intensity grade: 2+ and Left patellar reflex intensity grade: 2+ Coordination: [id number] test normal Results Reviewed Results Reviewed: Sep 2024 *No acute intracranial abnormalities. *Mild chronic microangiopathic ischemic changes. CT angiography head: *No intracranial large vessel occlusions. *Nonocclusive mild segmental calcific atherosclerosis of the cavernous portions of the internal carotid arteries. CT angiography neck: *No high-grade stenoses. *Nonocclusive eccentric nonulcerative mixed calcific and noncalcific atherosclerotic plaque at the origins of the left and right internal carotid arteries. *Nonocclusive nonulcerative segmental atherosclerosis of the common carotid arteries. MRI Brain 2023 No acute ischemia/stroke. Small vessel occlusive disease. Old microhemorrhages related to chronic hypertension and less likely amyloid microangiopathy Assessment & Plan Assessment & Plan (1) Numbness and tingling in right hand: Comment: ? carpal tunnel , ? radiculopathy Code(s): R20.0 - Anesthesia of skin; R20.2 - Paresthesia of skin Category: Medical (2) Snoring: Code(s): R06.83 - Snoring Category: Medical (3) Hypersomnia: Code(s): G47.10 - Hypersomnia, unspecified Category: Medical (4) Right sided numbness: Comment: ? TIA secondary to uncontrolled BP Code(s): R20.0 - Anesthesia of skin Category: Medical Plan This was a counseling predominated session I reviewed his ER notes, MRI CT and CTA I suggested to continue aspirin 81mg qd atorvostatin 40mg qd Sleep study to r/o sleep apnea which is a risk factor for CVA and HTN EMG NCS Right UE Refer to ortho for right shoulder pain check Vit B1 B12 levels Orders: Orders RT home sleep study Today G47.10 - Hypersomnia, unspecified, R06.83 - Snoring NE electromyogram (EMG) Today R20.0 - Anesthesia of skin, R20.2 - Paresthesia of skin NE nerve conduction velocity Today R20.0 - Anesthesia of skin, R20.2 - Paresthesia of skin Vitamin B12 and Folate Today G47.10 - Hypersomnia, unspecified, R20.0 - Anesthesia of skin, R20.2 - Paresthesia of skin TSH reflex Free T4 Today G47.10 - Hypersomnia, unspecified, R20.0 - Anesthesia of skin, R20.2 - Paresthesia of skin Vitamin B1 Today G47.10 - Hypersomnia, unspecified, R20.0 - Anesthesia of skin, R20.2 - Paresthesia of skin Referrals Orthopedics Referral M12.819 - Other specific arthropathies, not elsewhere classified, unspecified shoulder Coding Level of Care Code New Pt Level 4 (59457) Complex EM visit Add On G2211 Diagnoses Numbness and tingling in right hand R20.0; R20.2 Snoring R06.83 Hypersomnia G47.10 Right sided numbness R20.0
[2024-11-17 11:29] VITALS: BP 170/78; BMI 28.2
== END 2024-11-17 12:12 | disposition home or self-care (01) ==
PROVIDERS: PCP Family Medicine; Visit Provider Psychiatry & Neurology Neurology
DX: R20.0 Anesthesia of skin (principal); R20.2 Paresthesia of skin; R06.83 Snoring; G47.10 Hypersomnia, unspecified
CPT/HCPCS: 99204; G2211

== ENCOUNTER 2025-01-03 08:40 | Outpatient (REF) | payer MEDICARE, SELFPAY ==
--- NOTE | ~2025-01-03 | XR_ITS ---
EXAMINATION: XR SHOULDER 2 OR MORE VIEWS RIGHT HISTORY: M25.511 - Pain in right shoulder COMPARISON: There are no prior studies available for comparison. FINDINGS: Two views of the right shoulder are submitted. Osseous mineralization is normal. There is no fracture or dislocation. There is severe osteoarthritis of the glenohumeral and acromioclavicular joints with joint space narrowing and osteophyte formation. The soft tissues are unremarkable. XR/XR shoulder RT min 2V IMPRESSION: Severe osteoarthritis. Electronically signed by: Walt Vasquez MD 01/04/2025 08:10 AM [facility]
== END 2025-01-03 08:41 | disposition home or self-care (01) ==
LOC: HO.HOSX 08:40
PROVIDERS: Visit Provider Orthopaedic Surgery
DX: M25.511 Pain in right shoulder (principal); M54.2 Cervicalgia
CPT/HCPCS: 73030; 99202

== ENCOUNTER 2025-01-03 10:39 | Outpatient (AMB) | payer MEDICARE, SELFPAY ==
--- NOTE | 2025-01-03 10:48 | A.OFFVIS_ITS ---
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 The patient also reports numbness which involves all of his fingers and thumb. He did suffer from a ?TIA several months ago. The patient did undergo right shoulder rotator cuff repair surgery approximately 20 years ago after lifting a heavy object. He has been doing physical therapy exercises which have helped his right shoulder range of motion somewhat. He has tried Tylenol and anti-inflammatory medicines which gave him minimal relief. He has not had surgery on his neck in the past. Allergies No Known Allergies Allergy (Verified 01/03/25 10:50) Medication List - Last Reconciled 01/03/25 by Samm Cuba MD amlodipine 5 mg See Protocol PO DAILY aspirin 81 mg PO DAILY atorvastatin 40 mg PO BEDTIME gabapentin 300 mg PO BEDTIME 30 days losartan 50 mg See Protocol PO DAILY 90 days [facility] Medical History (Updated 01/03/25 @ 11:33 by Samm Cuba MD) Rotator cuff arthropathy Hypersomnia Snoring Numbness and tingling in right hand Bilateral cataracts Cataract (lens) fragments in eye following cataract surgery Hypertension Surgical History H/O vasectomy History of rotator cuff surgery Family History Sister Diabetes Social History (Updated 01/03/25 @ 11:06 by XAVIER Mcwilliams) Household Members: Spouse Housing: House Alcohol intake: current Alcohol intake frequency: 3 or more drinks per day Alcohol type: beer Patient Tobacco Use Status: Former Tobacco user e-Cigarette/Vaping Use: Never Used Second Hand Smoke Exposure: No Advance Directives Date on File: 09/16/24 service: No Current occupational status: retired 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, 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 Current occupational exposures/hazards: Yes Cognitive needs: No Hearing needs: Yes Vision needs: Yes Physical Exam Vital Signs: BMI result Body Mass Index 28.2 Const Other: Well-nourished well-developed very friendly male awake alert and oriented x3 in no acute distress Neck Other: Cervical spine examination shows right-sided paraspinal muscle tenderness, pain with range of motion, positive Spurling's test, 4/5 strength with testing of his right biceps and wrist extensors when compared to 5/5 strength on his left side Extrem Other: Right shoulder examination shows decreased active and passive range of motion when to his left shoulder, mild crepitus with range of motion, no instability Results Reviewed Results Reviewed: X-rays of the patient's right shoulder show severe glenohumeral joint degenerative changes, osteophyte formation, subchondral sclerosis, no acute bony abnormalities Assessment & Plan Assessment & Plan (1) Right shoulder pain: Code(s): M25.511 - Pain in right shoulder Category: Medical (2) Neck pain: Code(s): M54.2 - Cervicalgia Category: Medical Plan Mr. Blake presents with progressively worsening neck pain which radiates down to his right hand as well as associated right arm weakness possibly due to cervical stenosis or a disc herniation. Thus, I will send the patient for an MRI of his cervical spine for further evaluation. I will contact him by phone once the MRI results are available. He will call me prior to that time should his symptoms worsen in any way. He also has right shoulder pain and stiffness due to end-stage degenerative joint disease. He wishes to hold off on total s houlder replacement surgery for as long as possible. I agree with this plan. Feel free to call me at any time should questions regarding his orthopedic management arise. I spent 21 minutes in reviewing the patient's records and imaging studies, seeing the patient and documenting in the medical record. Orders: Orders XR shoulder RT min 2V Today M25.511 - Pain in right shoulder Coding Level of Care Code New Pt Level 3 (19040) Complex EM visit Add On G2211 Diagnoses Right shoulder pain M25.511 Neck pain M54.2
[2025-01-03 10:50] VITALS: BMI 28.2
== END 2025-01-03 11:30 | disposition home or self-care (01) ==
PROVIDERS: PCP Family Medicine; Visit Provider Orthopaedic Surgery
DX: M25.511 Pain in right shoulder (principal); M54.2 Cervicalgia
CPT/HCPCS: 99203; G2211

== ENCOUNTER → 2025-01-03 10:59 | Outpatient (BNV) | payer MEDICARE, SELFPAY | PROVIDERS: Visit Provider Radiology Diagnostic Radiology | DX: M25.511 Pain in right shoulder (principal); M19.011 Primary osteoarthritis, right shoulder | CPT/HCPCS: 73030 ==

== ENCOUNTER 2025-01-25 11:01 | Outpatient (REF) | payer MEDICARE, SELFPAY ==
[2025-01-25 14:16] LABS: MANUAL DIFF FLAG NO
[2025-01-25 14:24] LABS: Appearance Urine Clear; Color Urine Yellow; Glucose Urine UA Negative (Negative); Leukocyte Esterase Urine Negative (Negative); Nitrite Urine Negative (Negative); PH 6.5 (5.0-9.0); Urine Blood Negative (Negative); Urine Ketones Negative (Negative); Urine Protein Negative (Neg-Trace)
[2025-01-25 14:31] LABS: Basophils Percent Auto 0.4 % (0-2); Eosinophils Absolute Auto 0.1 X10*3/uL (0.0-0.4); Eosinophils Percent Auto 1.7 % (0-4); Hematocrit 41.7 % (42.0-52.0); Hemoglobin 13.7 g/dl (14.0-18.0); Imm Gran Abs Auto 0.01 X10*3/uL (0.00-0.03); Imm Gran Pct Auto 0.2 % (0.0-0.4); Lymphocytes Absolute Auto 1.2 X10*3/uL (1.2-4.9); Lymphocytes Percent Auto 24.7 % (20-40); Mean Corpuscular HGB Conc 32.9 g/dl (31.0-36.0); Mean Corpuscular Volume 94.3 fL (80.0-98.0); Monocytes Absolute Auto 0.6 X10*3/uL (0.1-1.2); Monocytes Percent Auto 12.1 % (2-11); Neutrophils Absolute Auto 2.9 x10*3/uL (2.0-8.3); Neutrophils Percent Auto 60.9 % (45-73); Platelet Count 257 X10*3/uL (160-400); Red Blood Count 4.42 X10*6/uL (4.60-5.80); Red Cell Distribution Width 12.9 % (11.0-16.0); White Blood Count 4.7 X10*3/uL (4.8-10.8)
[2025-01-25 14:50] LABS: Alanine Aminotransferase 41 U/L (0-40); Albumin Level 3.9 g/dL (3.5-5.0); Alkaline Phosphatase 57 U/L (39-117); Anion Gap 10 (12-20); Aspartate Amino Transferase 47 U/L (5-37); Bilirubin Total 0.9 mg/dL (0.0-1.0); Blood Urea Nitrogen 13 mg/dL (9-16); Carbon Dioxide 27 mmol/L (22-29); Chloride 104 mmol/L (96-108); Cholesterol 168 mg/dL (<200); Estimated Glomerular Filt Rate > 60; Glucose Fasting 95 mg/dL (60-99); HDL Cholesterol 87 mg/dL (>40); LDL Cholesterol Calculated 71 mg/dL (<100); Potassium 4.3 mmol/L (3.3-5.1); Sodium 137 mmol/L (135-145); Total Protein 7.4 g/dL (6.5-8.0); Triglycerides 53 mg/dL (<150)
[2025-01-25 14:59] LABS: TSH reflex Free T4 1.06 uIU/mL (0.32-4.0)
[2025-01-25 15:28] LABS: Creatinine Urine 44.69 mg/dL; Microalbumin Urine < 5.0 mg/L
== END 2025-01-25 11:02 | disposition home or self-care (01) ==
LOC: HO.WFDLDS 11:01
PROVIDERS: Visit Provider Family Medicine
DX: Z00.00 Encounter for general adult medical examination without abnormal findings (principal); Z12.5 Encounter for screening for malignant neoplasm of prostate; I10 Essential (primary) hypertension
CPT/HCPCS: 36415; 80053; 80061; 81003; 82043; 82570; 84153; 84443; 85025

== ENCOUNTER 2025-02-01 15:12 | Outpatient (AMB) | payer MEDICARE, SELFPAY ==
--- NOTE | 2025-02-01 15:36 | A.OFFPC_ITS ---
Vital Signs 02/01/25 15:39 02/01/25 15:45 Height 5 ft 9 in Weight 188 lb 2 oz BMI 27.8 BP 150/84 H 152/84 H Blood Pressure Location Rt brachial Rt brachial Position Sitting Sitting Respiration 14 Pulse 99 Pulse Source Pulse Oximeter Pulse Oximetry (%) 97 Oxygen Delivery Method Room Air Intake Visit Reasons: CPE with f/u labs and health maint - see comment Intake Note: Physical. Needs refill on Aspirin and Amlodipine. Recreational Leader Required: No Allergies No Known Allergies Allergy (Verified 02/01/25 15:43) Medication List - Last Reconciled 02/01/25 by Tana Dooley PA-C amlodipine 5 mg See Protocol PO DAILY aspirin 81 mg PO DAILY atorvastatin 40 mg PO BEDTIME Tobacco use date assessed: 02/01/25 Fall risk assessment: No Falls in past year Last assessed Fall Risk: 02/01/25 Dental Screening Dental Screen Date: 10/18/24 HPI CPE with f/u labs and health maint - see comment HPI Details Patient is a 69-year-old male who presents today for a routine visit exam. He is a patient of Dr. Bruner. He has a significant past medical history of hypertension, alcohol abuse, prior CVA and snoring. His main concern is a hernia in the left inguinal region. It has been there for years and has recently enlarged. He states that it is of the size of a baseball at times and at times is uncomfortable. He wants this taken care of. CV: Blood pressure today in the office is 152/84. He is currently on amlodipine 5 mg daily and losartan 50 mg daily. Cholesterol is managed with a torvastatin 40 mg. He does take a daily aspirin. Last LDL was 71. Neuro: Has a prior history of a CVA and has numbness and tingling in the right hand. His neurologist is Dr. Santillan. GI: Last LFTs have been elevated. He is drinking 4 beers a night. He states that this is an improvement for how much he used to drink and he is not ready to completely quit drinking. He does not want a referral to addiction Medicine. Psych: Depression and anxiety screen are negative Colonoscopy: never had PSA: WNL, 01/25/2025 [facility] Medical History (Updated 02/01/25 @ 16:24 by Tana Dooley, PA-C) Rotator cuff arthropathy Hypersomnia Snoring Numbness and tingling in right hand Bilateral cataracts Cataract (lens) fragments in eye following cataract surgery Hypertension Surgical History H/O vasectomy History of rotator cuff surgery Family History Sister Diabetes Social History (Updated 02/01/25 @ 15:45 by Chela Hollis CMA) Household Members: Spouse Housing: House Alcohol intake: current Alcohol intake frequency: 3 or more drinks per day Alcohol type: beer Patient Tobacco Use Status: Former Tobacco user Cigarette Packs Per Day: 1 Years Smoked: 30 e-Cigarette/Vaping Use: Never Used Second Hand Smoke Exposure: No Advance Directives Date on File: 09/16/24 service: No Current occupational status: retired 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 1. Little interest or pleasure in doing things: not at all 2. Feeling down, depressed, or hopeless: not at all 3. Trouble falling or staying asleep, or sleeping too much: not at all 4. Feeling tired or having little energy: not at all 5. Poor appetite or overeating: not at all 6. Feeling bad about yourself - or that you are a failure or have let yourself or your family down: not at all 7. Trouble concentrating on things, such as reading the newspaper or watching television: not at all 8. Moving or speaking so slowly that other people could have noticed. Or the opposite - being so fidgety or restless that you have been moving around a lot more than usual: not at all 9. Thoughts that you would be better off or of hurting yourself in some way: not at all Total score: 0 Depression Screening Interpretation: Negative Depression Screening Done: Yes 57286 - PHQ-9 Billing: Yes Source: Developed by Drs. Walt Tenorio, Tg Corrales, Charli Casillas and colleagues, with an educational hussein from [employer]. Thrive Questionnaire Date Thrive assessed: 01/29/25 I am a: Patient What is your living situation today?: I choose not to answer this question Within the past 12 months, did the food you bought not last and you didn't have the money to get more?: I choose not to answer this question Within the past 12 months, did you worry whether your food would run out before you got money to buy more?: I choose not to answer this question Do you have trouble paying for medicines?: I choose not to answer this question Do you have trouble getting transportation to medical appointments?: I choose not to answer this question Do you have trouble paying your heating and electricity bill?: I choose not to answer this question Do you have trouble taking care of your child, family member or friend?: I choose not to answer this question Do you have trouble with day-to-day activities such as bathing, preparing meals, shopping, managing finances, etc.?: I choose not to answer this question Are you currently unemployed and looking for a job?: No Are you interested in more education?: No Please select the resources that you would like help with: None Currently or been in a relationship where the following occur: I choose not to answer THRIVE Score: 0 AUDIT C Alcohol Use Questionnaire (AUDIT-C) 1. How often do you have a drink containing alcohol?: Monthly or less 2. How many drinks containing alcohol do you have on a typical day when you are drinking?: 3 or 4 3. How often do you have six or more drinks on one occasion?: Less than monthly Total Score: 3 MIGUELINA-7 AMB Questionnaire MIGUELINA-7 Date MIGUELINA - 7 assessed: 02/01/25 Feeling nervous, anxious, or on edge: 0 = Not at all Not being able to stop or control worryin = Not at all Worrying too much about different things: 0 = Not at all Trouble relaxin = Not at all Being so restless that it is hard to sit still: 0 = Not at all Becoming easily annoyed or irritable: 0 = Not at all Feeling afraid as if something awful might happen: 0 = Not at all Total MIGUELINA-7 score (0-4 normal; 5-9 mild; 10-14 moderate; 15-21 severe): 0 Source: Developed by Drs. Walt Tenorio, Tg B.W. Charli Corrales and colleagues, with an educational hussein from [employer]. MIGUELINA-7 Assessment Billing MIGUELINA-7 Assessment Tool: MIGUELINA-7 Assessment 29445 Physical exam (Primary Care) Vital Signs: Last Vital Signs Pulse 99 02/01/25 15:39 Resp 14 02/01/25 15:39 BP 152/84 H 02/01/25 15:45 Pulse Ox 97 02/01/25 15:39 Oxygen Delivery Method Room Air 02/01/25 15:39 BMI result Body Mass Index 27.8 Tobacco/Smoking Status: Tobacco use Status Tobacco use date assessed 02/01/25 02/01/25 15:44 Patient Tobacco Use Status Former Tobacco user 02/01/25 15:45 e-Cigarette/Vaping Use Never Used 02/01/25 15:45 PHQ-9: PHQ-9 Score PHQ-9: Total score 0 02/01/25 15:54 Depression Screening Interpretation: Negative Thrive Assessment: Date of Thrive Assessment Date Thrive assessed 01/29/25 02/01/25 15:36 Currently or been in a relationship where the following occur: I choose not to answer Const Orientation/consciousness: patient oriented x3 HENMT Ears: hearing grossly normal bilaterally and TM's normal bilaterally General nose exam: No nasal polyps present Face and sinus: Yes sinuses nontender Mouth: Normal oral and palatal mucosa present Eyes Pupils: Equal, round and reactive pupils present EOM: EOMs intact bilaterally Neck Neck: Yes full ROM and Yes no lymphadenopathy Thyroid: Thyroid normal Chest Chest palpation & inspection: normal inspection of the chest Resp Auscultation: clear to auscultation bilaterally Cardio Rate: regular rate Rhythm: regular rhythm Heart sounds: S1 normal heart sound present and S2 normal heart sound present Peripheral pulses: Peripheral pulses 2+ throughout GI Other: Soft, nontender, there is a baseball sized reducible mass noted in the left inguinal region consistent with a hernia Auscultation: normal bowel sounds Rectal Exam - Male: Yes deferred General: Yes no CVA tenderness Back/Spine/Pelvis Other: Nontender Back: no CVA tenderness Skin General skin exam: no rashes or lesions noted Neuro General: patient oriented x3, gait normal, CN's II-XI intact bilaterally and deep tendon reflexes 2+ bilaterally Cranial nerves: Yes Equal, round and reactive pupils present Motor exam (neuro): 5/5 motor strength present throughout Sensory Exam: double simultaneous stimulation for sensation normal Coordination: [id number] test normal and Romberg test negative Extrem General: Yes normal to inspection and Yes full ROM Psych Affect: normal affect Attitude: cooperative Thought process: Normal thought process present Thought content: Normal thought content present Insight: Good insight present (Psych) Judgement: Good judgement present (Psych) Coding Level of Care Code Est Pt Level 3 (43480) Est Pt Prev Care >65y(55052) Diagnoses Routine general medical examination at a health care facility Z00.00 Left inguinal hernia K40.90 Anemia D64.9 Elevated LFTs R79.89 Hypertension I10 Additional Codes MIGUELINA-7 Assessment Billing - MIGUELINA-7 Assessment Tool: MIGUELINA-7 Assessment 47839 ([id number]) PHQ-9 - 99401 - PHQ-9 Billing: Yes ([id number]) Assessment & Plan Assessment & Plan (1) Routine general medical examination at a [facility] care facility: Code(s): Z00.00 - Encounter for general adult medical examination without abnormal findings Plan: Health maintenance reviewed. Labs reviewed with patient today in office. Referral to GI for a colonoscopy and for evaluation of his anemia and elevated LFTs. (2) Left inguinal hernia: Code(s): K40.90 - Unilateral inguinal hernia, without obstruction or gangrene, not specified as recurrent Category: Medical Plan: Referral to General surgery. Warning signs of a hernia that would require emergent medical treatment were discussed (3) Anemia: Code(s): D64.9 - Anemia, unspecified Category: Medical Plan: Labs ordered. Discussed that he does need to follow up with GI. (4) Elevated LFTs: Code(s): R79.89 - Other specified abnormal findings of blood chemistry Category: Medical Plan: Ultrasound ordered. Strongly encouraged patient to quit drinking. (5) Hypertension: Code(s): I10 - Essential (primary) hypertension Category: Medical Plan: Increase losartan. Continue amlodipine. Return for follow up. Orders: Orders Complete Blood Count Auto Diff 02/01/25 D64.9 - Anemia, unspecified, K40.90 - Unilateral inguinal hernia, without obstruction or gangrene, not specified as recurrent, R79.89 - Other specified abnormal findings of blood chemistry Ferritin 02/01/25 D64.9 - Anemia, unspecified, K40.90 - Unilateral inguinal hernia, without obstruction or gangrene, not specified as recurrent, R79.89 - Other specified abnormal findings of blood chemistry Vitamin B12 and Folate 02/01/25 D64.9 - Anemia, unspecified, K40.90 - Unilateral inguinal hernia, without obstruction or gangrene, not specified as recurrent, R79.89 - Other specified abnormal findings of blood chemistry Liver Panel 02/01/25 D64.9 - Anemia, unspecified, K40.90 - Unilateral inguinal hernia, without obstruction or gangrene, not specified as recurrent, R79.89 - Other specified abnormal findings of blood chemistry IRON PROFILE 02/01/25 D64.9 - Anemia, unspecified, K40.90 - Unilateral inguinal hernia, without obstruction or gangrene, not specified as recurrent, R79.89 - Other specified abnormal findings of blood chemistry US abdomen comp w elastography 02/01/25 D64.9 - Anemia, unspecified, K40.90 - Unilateral inguinal hernia, without obstruction or gangrene, not specified as recurrent, R79.89 - Other specified abnormal findings of blood chemistry Referrals Gastroenterology Referral D64.9 - Anemia, unspecified, R79.89 - Other specified abnormal findings of blood chemistry General Surgery Referral K40.90 - Unilateral inguinal hernia, without obstruction or gangrene, not specified as recurrent Medications: New losartan 100 mg PO DAILY 90 tabs 3RF Refilled amlodipine 5 mg See Protocol PO DAILY 90 tabs 3RF Patient Instructions: Your blood pressure was a little elevated today in the office so I increase the losartan to 100 mg. Continue the amlodipine 5 mg which was refilled today Your blood work showed that your liver function were a little elevated as it has been in the past. I ordered a liver ultrasound and repeat labs for you to get done in a few weeks. You do not need to fast for this blood work I have also ordered iron studies and a repeat complete blood count because you did appear to be a little anemic which is new. You will get this done at the same time that you get your liver tests done I have referred you to gastroenterology, the stomach doctors, for evaluation for the anemia because you likely need a colonoscopy and also for the elevated liver test. They should call you to book that I did put in a referral for General surgery for the hernia
[2025-02-01 15:39] VITALS: BP 150/84; PULSE 99; RESP 14; O2SAT 97; BMI 27.8
[2025-02-01 15:45] VITALS: BP 152/84
== END 2025-02-01 16:43 | disposition home or self-care (01) ==
LOC: HO.HMCFM 15:13
PROVIDERS: PCP Family Medicine; Visit Provider Physician Assistant
DX: Z00.00 Encounter for general adult medical examination without abnormal findings (principal); K40.90 Unilateral inguinal hernia, without obstruction or gangrene, not specified as recurrent; D64.9 Anemia, unspecified; R79.89 Other specified abnormal findings of blood chemistry; I10 Essential (primary) hypertension

== ENCOUNTER → 2025-02-01 15:12 | Outpatient (BNVA) | payer MEDICARE, SELFPAY | PROVIDERS: PCP Family Medicine; Visit Provider Physician Assistant | DX: Z00.01 Encounter for general adult medical examination with abnormal findings (principal); K40.90 Unilateral inguinal hernia, without obstruction or gangrene, not specified as recurrent; D64.9 Anemia, unspecified; R79.89 Other specified abnormal findings of blood chemistry; I10 Essential (primary) hypertension | CPT/HCPCS: 96127; 99212; 99397 ==

== ENCOUNTER 2025-02-28 11:09 | Outpatient (AMB) | payer MEDICARE, SELFPAY ==
--- NOTE | 2025-02-28 11:21 | A.OFFVIS_ITS ---
Vital Signs 02/28/25 11:28 Height 5 ft 9 in Weight 191 lb BMI 28.2 BP 164/73 H Blood Pressure Location Rt brachial Position Sitting Pulse 72 Intake Visit Reasons: hernia Intake Note: Patient referred by Tana Dooley PA-C for Unilateral inguinal hernia. Present for yrs, Patient c/o: pain at times, bulges out. Reports normal BM. Denies diarrhea, constipation. Spare Hand Required: No Accompanied by: Self / Same As Patient Allergies No Known Allergies Allergy (Verified 02/28/25 11:27) HPI Comments Details: Patient presents for evaluation of the symptomatic enlarging left inguinal hernia. He has had this several years time. It was increasing in size. He would like to have it repaired. He has no other GI issues or complaints. 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 Patient otherwise tolerating a diet. Has regular bowel habits. Chart was reviewed and patient evaluated REPLACED BY [facility] Medical History Rotator cuff arthropathy Hypersomnia Snoring Numbness and tingling in right hand Bilateral cataracts Cataract (lens) fragments in eye following cataract surgery Hypertension Surgical History H/O vasectomy History of rotator cuff surgery Family History Sister Diabetes Social History Household Members: Spouse Housing: House Alcohol intake: current Alcohol intake frequency: 3 or more drinks per day Alcohol type: beer Patient Tobacco Use Status: Former Tobacco user Cigarette Packs Per Day: 1 Years Smoked: 30 e-Cigarette/Vaping Use: Never Used Second Hand Smoke Exposure: No Advance Directives Date on File: 09/16/24 service: No Current occupational status: retired 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 Moderately corpulent abdomen compared soft, benign. Small right inguinal hernia. Genitalia within normal limits. Very large irreducible left inguinal hernia Assessment & Plan Assessment & Plan (1) Left inguinal hernia: Code(s): K40.90 - Unilateral inguinal hernia, without obstruction or gangrene, not specified as recurrent Category: Surgical Plan Patient would only like to have the left inguinal hernia repaired at this time. This is the symptomatic 1. He has no symptoms of the right side. Risks, benefits, and alternatives of open left inguinal hernia repair with mesh were reviewed with the patient and included but not limited to bleeding, infection, recurrence, numbness, pain, scarring and the patient wished to proceed. All questions answered. Arrangements were made for this on a day which is convenient for him. Coding Level of Care Code New Pt Level 5 (62449) Diagnoses Left inguinal hernia K40.90
[2025-02-28 11:28] VITALS: BP 164/73; PULSE 72; BMI 28.2
== END 2025-02-28 11:33 | disposition home or self-care (01) ==
LOC: HO.HGS 11:10
PROVIDERS: PCP Family Medicine; Visit Provider Surgery
DX: K40.90 Unilateral inguinal hernia, without obstruction or gangrene, not specified as recurrent (principal)
CPT/HCPCS: 99204

== ENCOUNTER → 2025-02-28 11:09 | Outpatient (BNVA) | payer MEDICARE, SELFPAY | PROVIDERS: PCP Family Medicine; Visit Provider Surgery | DX: K40.90 Unilateral inguinal hernia, without obstruction or gangrene, not specified as recurrent (principal) | CPT/HCPCS: 99202 ==

== ENCOUNTER 2025-03-10 10:44 | Outpatient (REF) | payer MEDICARE, SELFPAY ==
--- NOTE | ~2025-03-10 | US_ITS ---
EXAMINATION: US ABDOMEN COMPLETE WITH LIVER ELASTOGRAPHY HISTORY: elevated liver function tests TECHNIQUE: Real-time grayscale ultrasound imaging of the abdomen was performed and images were reviewed. COMPARISON: There are no prior studies for comparison. FINDINGS: Liver: The right lobe of the liver measures 15.2 cm in size. The left lobe of the liver measures 8.3 cm in size. The liver demonstrates heterogeneously increased echotexture, consistent with steatosis. No focal mass or intrahepatic biliary ductal dilatation is identified. There is normal hepatopedal flow in the portal vein. Ultrasound elastography of the liver was performed with 10 separate measurements of the liver parenchyma with the patient in the supine position. Measurements were obtained approximately 2 cm below Inga's capsule and perpendicular to the capsule. Images are of satisfactory quality. The median shear wave velocity is 1.80 m/s. The interquartile range/median (IQR/median) is 0.09. Gallbladder and biliary tree: The gallbladder is unremarkable, without evidence of calculi, wall thickening, or pericholecystic fluid. There is no sonographic Garcia sign. The common bile duct is normal in caliber measuring 3 mm. Kidneys: The right kidney measures 10.6 cm in length. The left kidney measures 11.4 cm in length. The kidneys are unremarkable, without evidence of masses, hydronephrosis, or calculi. Pancreas: The pancreatic head, neck, and body are unremarkable. The pancreatic tail is obscured by bowel gas. Spleen: The spleen is normal in size and contour, measuring 8.7 cm in length. Abdominal aorta and inferior vena cava: The visualized portions of the abdominal aorta and inferior vena cava are normal in caliber. There is no free fluid in the abdomen. US/US abdomen comp w elastography IMPRESSION: Hepatic steatosis. The median shear wave velocity in the liver is 1.80 m/s, corresponding to a median liver stiffness of 9.82 kPa. The IQR/median value is 0.09. This is indicative of a quality data set. Findings are indicative of a high elastography value suggestive of compensated advanced chronic liver disease. REFERENCE: Society of Radiologists in Ultrasound Liver Stiffness Thresholds (2020): LIVER STIFFNESS THRESHOLDS: *Shear wave velocity less than 1.3 m/s (Liver Stiffness equal or less than 5 kPa): High probability of being normal. *Shear wave velocity less than 1.7 m/s (Liver Stiffness less than 9 kPa): In the absence of other known clinical signs, rules out compensated advanced chronic liver disease. *Shear wave velocity between 1.7-2.1 m/s (Liver Stiffness 9-13 kPa): Suggestive of compensated advanced chronic liver disease but need further test for confirmation. *Shear wave velocity between 2.1-2.4 m/s (Liver Stiffness 13-17 kPa): Rules in compensated advanced chronic liver disease. *Shear wave velocity greater than 2.4 m/s (Liver Stiffness over 17 kPa): Suggestive of clinically significant portal hypertension. QUALITY OF DATA SET: *IQR/Median value equal or less that 0.15 implies a quality data set. *IQR/Median value over 0.15 implies a poor quality data set. SIGNIFICANT CHANGE FROM PRIOR EXAM: Significant change if liver stiffness measurement is 10% or greater from prior exam. OTHER CONSIDERATIONS: The stage of liver fibrosis may be overestimated in the setting of acute hepatitis, liver inflammation, elevated liver function tests, hepatic vascular congestion, obstructive cholestasis, non-fasting state, and infiltrative diseases such as amyloidosis and lymphoma. In some patients with NAFLD, the liver stiffness thresholds for compensated advanced chronic liver disease may be lower. In causes other than viral hepatitis and NAFLD, liver stiffness thresholds are not well established. Electronically signed by: Walt Vasquez MD 03/10/2025 12:35 PM EDT
== END 2025-03-10 10:45 | disposition home or self-care (01) ==
LOC: HO.US 10:44
PROVIDERS: PCP Family Medicine; Visit Provider Physician Assistant
DX: K40.90 Unilateral inguinal hernia, without obstruction or gangrene, not specified as recurrent (principal); D64.9 Anemia, unspecified; R79.89 Other specified abnormal findings of blood chemistry
CPT/HCPCS: 76700; 76981

== ENCOUNTER → 2025-03-10 10:49 | Outpatient (BNV) | payer MEDICARE, SELFPAY | PROVIDERS: PCP Family Medicine; Visit Provider Radiology Diagnostic Radiology | DX: K76.0 Fatty (change of) liver, not elsewhere classified (principal) | CPT/HCPCS: 76700; 76981 ==

== ENCOUNTER 2025-04-11 10:33 | Outpatient (AMB) | payer MEDICARE, SELFPAY ==
--- NOTE | 2025-04-11 10:38 | A.OFFVIS_ITS ---
Vital Signs 04/11/25 10:53 Height 5 ft 9 in Weight 190 lb 14.725 oz BMI 28.2 Intake Visit Reasons: left inguinal hernia ( Dr Wooten ) Intake Note: Patient was seen by Dr Wooten on 02/28/25, here to discuss left inguinal hernia repair. Pt c/o: denies any changes since last visit, still interest in having surgery Sole Sewer Hand Required: No Accompanied by: Self / Same As Patient Allergies No Known Allergies Allergy (Verified 04/11/25 10:54) Medication List - Last Reconciled 04/11/25 by Jake Painter MD amlodipine 5 mg See Protocol PO DAILY aspirin 81 mg PO DAILY atorvastatin 40 mg PO BEDTIME losartan 100 mg PO DAILY HPI Comments Details: 69-year-old male patient previously evaluated by Dr. Wooten for left inguinal hernia. He reports a long history of a lump in the left groin which has gradually increased in size and is now causing some discomfort. He also reports some difficulty with his digestive tract with constipation related to the hernia. He denies any nausea, vomiting, fever or chills. He does report a prior history of a bilateral inguinal hernia repair as a child. He is unable to reduce the hernia in the left side but does noted to get smaller when laying down. He denies any blood per rectum. [facility] Medical History Rotator cuff arthropathy Hypersomnia Snoring Numbness and tingling in right hand Bilateral cataracts Cataract (lens) fragments in eye following cataract surgery Hypertension Surgical History H/O vasectomy History of rotator cuff surgery Family History Sister Diabetes Social History Household Members: Spouse Housing: House Alcohol intake: current Alcohol intake frequency: 3 or more drinks per day Alcohol type: beer Patient Tobacco Use Status: Former Tobacco user Cigarette Packs Per Day: 1 Years Smoked: 30 e-Cigarette/Vaping Use: Never Used Second Hand Smoke Exposure: No Advance Directives Date on File: 09/16/24 service: No Current occupational status: retired 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, 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 Current occupational exposures/hazards: Yes Cognitive needs: No Hearing needs: Yes Vision needs: Yes Review of Systems Const All systems reviewed & are unremarkable except as noted in HPI and below Physical Exam Vital Signs: BMI result Body Mass Index 28.2 Const General: cooperative and no acute distress Nutritional Appearance: well nourished Orientation/consciousness: patient oriented x3 Limitations: no limitations HEENT Head: Yes normocephalic and Yes atraumatic Ears: hearing grossly normal bilaterally Resp Effort & Inspection: normal respiratory effort, no audible wheezes, no cough and no respiratory distress Cardio Jugular venous distension: no JVD GI Other: Large left inguinal hernia noted in the standing position which increases in size with Valsalva maneuvers but does reduce with light pressure. There is minimal tenderness to palpation. No definite right inguinal hernias appreciated at this time. No umbilical hernia is appreciated. Inspection: Yes normal to inspection Palpation (GI): Soft to palpation, nontender, no guarding and not rigid Skin Other: Warm, dry, no rash Neuro General: patient oriented x3 Extrem General: Yes no clubbing, cyanosis or edema Assessment & Plan Assessment & Plan (1) Left inguinal hernia: Code(s): K40.90 - Unilateral inguinal hernia, without obstruction or gangrene, not specified as recurrent Category: Surgical Plan 69-year-old male patient presenting with a large left inguinal hernia which is now become symptomatic. I recommended repair of this left inguinal hernia with mesh and after discussion of the procedure, risks, and alternatives, he consents to the surgery. He will be scheduled as a short-stay surgery at his earliest convenience. He understands that he will need to avoid lifting greater than 10 lb for the 1st month after surgery. We will also need to avoid driving for the 1st week. Coding Level of Care Code Est Pt Level 3 (97682) Diagnoses Left inguinal hernia K40.90
[2025-04-11 10:53] VITALS: BMI 28.2
== END 2025-04-11 11:03 | disposition home or self-care (01) ==
LOC: HO.HGS 10:34
PROVIDERS: PCP Family Medicine; Visit Provider Surgery
DX: K40.90 Unilateral inguinal hernia, without obstruction or gangrene, not specified as recurrent (principal)
CPT/HCPCS: 99213

== ENCOUNTER → 2025-04-11 10:33 | Outpatient (BNVA) | payer MEDICARE, SELFPAY | PROVIDERS: PCP Family Medicine; Visit Provider Surgery | DX: K40.90 Unilateral inguinal hernia, without obstruction or gangrene, not specified as recurrent (principal) | CPT/HCPCS: 99212 ==

== ENCOUNTER 2025-05-05 10:38 | Outpatient (AMB) | payer MEDICARE, SELFPAY ==
--- NOTE | 2025-05-05 10:53 | MHC.PC.OV ---
Vital Signs 05/05/25 10:56 05/05/25 11:22 Height 5 ft 9 in Weight 197 lb BMI 29.1 BP 140/88 H 142/78 H Blood Pressure Location Rt brachial Lt brachial Position Sitting Sitting Pulse 86 Pulse Source Pulse Oximeter Temp 97.9 F Temp Source Temporal Artery Scan Pulse Oximetry (%) 97 Oxygen Delivery Method Room Air Intake Visit Reasons: bp Intake Note: Jose presents in the office today for his blood pressure. Allergies No Known Allergies Allergy (Verified 05/05/25 10:55) Medication List - Last Reconciled 05/05/25 by Rob Bruner MD amlodipine 5 mg See Protocol PO DAILY aspirin 81 mg PO DAILY atorvastatin 40 mg PO BEDTIME hydrochlorothiazide 12.5 mg PO QAM 90 days losartan 100 mg PO DAILY Tobacco use date assessed: 05/05/25 Dental Screening Dental Screen Date: 05/05/25 Did you have a dental visit in the last 12 months?: No Did you have a dental problem in the last 6 months where you did not have access to dental care?: No Was dental information given to patient?: Patient declined HPI bp HPI Details Patient presents for preoperative clearance prior to inguinal hernia repair. Procedure: Inguinal hernia repair Date:? Surgeon: Anesthesia: Cardiac Hx: None Pulmonary Hx: None Prior Surgical Complications: Prior Anesthesia Complications: Coag issues: Functional [place]: Hx of CVA, TIA. Blood pressure today 142/78. Hx of CVA. He is on amlodipine 5mg, losartan 100mg daily. PENDING SALE TO [facility] Medical History Rotator cuff arthropathy Hypersomnia Snoring Numbness and tingling in right hand Bilateral cataracts Cataract (lens) fragments in eye following cataract surgery Hypertension Surgical History H/O vasectomy History of rotator cuff surgery Family History Sister Diabetes Social History (Updated 05/05/25 @ 10:56 by Veronique Humphries MA) Household Members: Spouse Housing: House Alcohol intake: current Alcohol intake frequency: 3 or more drinks per day Alcohol type: beer Patient Tobacco Use Status: Former Tobacco user Cigarette Packs Per Day: 1 Years Smoked: 30 e-Cigarette/Vaping Use: Never Used Second Hand Smoke Exposure: No Advance Directives Date on File: 09/16/24 service: No Current occupational status: retired 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, 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 Current occupational exposures/hazards: Yes Cognitive needs: No Hearing needs: Yes Vision needs: Yes Questionnaire Thrive Questionnaire Date Thrive assessed: 01/29/25 I am a: Patient What is your living situation today?: I choose not to answer this question Within the past 12 months, did the food you bought not last and you didn't have the money to get more?: I choose not to answer this question Within the past 12 months, did you worry whether your food would run out before you got money to buy more?: I choose not to answer this question Do you have trouble paying for medicines?: I choose not to answer this question Do you have trouble getting transportation to medical appointments?: I choose not to answer this question Do you have trouble paying your heating and electricity bill?: I choose not to answer this question Do you have trouble taking care of your child, family member or friend?: I choose not to answer this question Do you have trouble with day-to-day activities such as bathing, preparing meals, shopping, managing finances, etc.?: I choose not to answer this question Are you currently unemployed and looking for a job?: No Are you interested in more education?: No Please select the resources that you would like help with: None Currently or been in a relationship where the following occur: I choose not to answer THRIVE Score: 0 MIGUELINA-7 AMB Questionnaire MIGUELINA-7 Date MIGUELINA - 7 assessed: 02/01/25 Source: Developed by Drs. Walt Tenorio, Tg Corrales, Charli Casillas and colleagues, with an educational hussein from [employer]. Review of Systems Const Denies chills, Denies fatigue, Denies fever(s), Denies headache(s) and Denies weakness ENT Denies dizziness and Denies headache(s) Card Denies dyspnea Resp Denies cough, Denies dyspnea, Denies wheezing and Denies other (shortness of breath) Musc Denies numbness and Denies tingling Neuro Denies dizziness, Denies headache(s), Denies numbness, Denies tingling and Denies weakness Psych Denies anxiety and Denies depression Endo Denies fatigue Aller/Immun Denies wheezing Physical exam (Primary Care) Vital Signs: Last Vital Signs Temp 97.9 F 05/05/25 10:56 Pulse 86 05/05/25 10:56 BP 142/78 H 05/05/25 11:22 Pulse Ox 97 05/05/25 10:56 Oxygen Delivery Method Room Air 05/05/25 10:56 BMI result Body Mass Index 29.1 Tobacco/Smoking Status: Tobacco use Status Tobacco use date assessed 05/05/25 05/05/25 10:59 Patient Tobacco Use Status Former Tobacco user 05/05/25 10:56 e-Cigarette/Vaping Use Never Used 05/05/25 10:56 Thrive Assessment: Date of Thrive Assessment Date Thrive assessed 01/29/25 05/05/25 10:54 Currently or been in a relationship where the following occur: I choose not to answer Const General: well developed; No acute distress Nutritional Appearance: well nourished Orientation/consciousness: patient oriented x3 HENMT Head: Yes normocephalic and Yes atraumatic Eyes General: appearance normal, both eyes and all related structures Pupils: Equal, round and reactive pupils present EOM: EOMs intact bilaterally Resp Effort & Inspection: normal respiratory effort Neuro General: patient oriented x3 and gait normal Cranial nerves: Yes Equal, round and reactive pupils present Psych Affect: normal affect Coding Level of Care Code Est Pt Level 3 (80591) Diagnoses Pre-operative clearance Z01.818 Hypertension I10 Assessment & Plan Assessment & Plan (1) Pre-operative clearance: Code(s): Z01.818 - Encounter for other preprocedural examination Category: Medical Plan: 69-year-old?male?with?history?of hypertension?and?CVA presents?for?preoperative?clearance?prior?to?inguinal?hernia?repair History?of?hypertension?and?blood?pressures?do?run?a?little?bit?high.??Will?have?him?increase?amlodipine?to?10?mg?daily. History?of?CVA.??Stable.??He?is?on?aspirin?and?atorvastatin.??Will?control?blood?pressure. No?history?of?her?disease. Cardiac?exam?today?is?within?limits. EKG: ?Normal?sinus?rhythm, left?atrial?enlargement,?right?bundle?branch?block, no?ST-T-wave?changes. No pulmonary?disease?and?normal?pulmonary?exam?today. No?coagulopathies. ?Patient?is?on?aspirin. Functional?reserve?fair Intermediate?risk?patient?for?intermediate?risk?procedure. Optimizing?blood?pressure?control?and?then?no?contraindications?to?proceeding?with?proposed?procedure. Can?stop?aspirin?7?days?prior?to?procedure?then?resume?afterwards (2) Hypertension: Code(s): I10 - Essential (primary) hypertension Category: Medical Plan: Blood?pressure?remains?too?high.??Patient's?goal?is?less?than?130/80 He?is?on?losartan?100?mg?daily?and?amlodipine?5?mg?daily.??He?has?not?tolerated?increases?in?amlodipine. Add?hydrochlorothiazide Orders: Orders AMB EKG-In Office Today Z01.818 - Encounter for other preprocedural examination AMB EKG-In Office Today Z01.818 - Encounter for other preprocedural examination Medications: New hydrochlorothiazide 12.5 mg PO QAM 90 tabs 3RF 90 days
[2025-05-05 10:56] VITALS: BP 140/88; PULSE 86; TEMP 36.6; O2SAT 97; BMI 29.1
[2025-05-05 11:22] VITALS: BP 142/78
== END 2025-05-05 12:10 | disposition home or self-care (01) ==
LOC: HO.HMCFM 10:39
PROVIDERS: PCP Family Medicine; Visit Provider Family Medicine
DX: Z01.818 Encounter for other preprocedural examination (principal); I10 Essential (primary) hypertension

== ENCOUNTER → 2025-05-05 10:38 | Outpatient (BNVA) | payer MEDICARE, SELFPAY | PROVIDERS: PCP Family Medicine; Visit Provider Family Medicine | DX: Z01.818 Encounter for other preprocedural examination (principal); I10 Essential (primary) hypertension | CPT/HCPCS: 99212 ==

== ENCOUNTER 2025-06-13 10:09 | Outpatient (AMB) | payer MEDICARE, SELFPAY ==
--- NOTE | 2025-06-13 10:16 | A.OFFPC_ITS ---
Vital Signs 06/13/25 10:17 Height 5 ft 9 in Weight 188 lb BMI 27.8 BP 130/60 Blood Pressure Location Rt brachial Position Sitting Respiration 16 Pulse 78 Pulse Source Pulse Oximeter Temp 97.8 F Temp Source Oral Intake Visit Reasons: f/u HTN Intake Note: patient is scheduled for htn follow up [employer] Required: No Allergies No Known Allergies Allergy (Verified 06/13/25 10:16) Medication List - Last Reconciled 06/13/25 by Rob Bruner MD amlodipine 5 mg See Protocol PO DAILY aspirin 81 mg PO DAILY atorvastatin 40 mg PO BEDTIME hydrochlorothiazide 12.5 mg PO QAM 90 days losartan 100 mg PO DAILY Tobacco use date assessed: 05/05/25 Dental Screening Dental Screen Date: 05/05/25 HPI f/u HTN HPI Details 70 y/o male presents to f/u HTN. Had added hydrochlorothiazide to his regimen last office visit. Blood pressure today 130/60, 78p. He is on losartan 100mg, HCTZ 12.5mg, amlodipine 5mg daily. Patient presents for preoperative clearance prior to inguinal hernia repair. Procedure: Inguinal hernia repair Date:?TBD Surgeon: Inocencio Anesthesia: General Cardiac Hx: None Pulmonary Hx: None Prior Surgical Complications: Prior Anesthesia Complications: Coag issues: Functional [place]: Hx of CVA, TIA. [facility] Medical History Rotator cuff arthropathy Hypersomnia Snoring Numbness and tingling in right hand Bilateral cataracts Cataract (lens) fragments in eye following cataract surgery Hypertension Surgical History H/O vasectomy History of rotator cuff surgery Family History Sister Diabetes Social History (Updated 05/05/25 @ 10:56 by Veronique Humphries MA) Household Members: Spouse Housing: House Alcohol intake: current Alcohol intake frequency: 3 or more drinks per day Alcohol type: beer Patient Tobacco Use Status: Former Tobacco user Cigarette Packs Per Day: 1 Years Smoked: 30 e-Cigarette/Vaping Use: Never Used Second Hand Smoke Exposure: No Advance Directives Date on File: 09/16/24 service: No Current occupational status: retired 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, 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 Current occupational exposures/hazards: Yes Cognitive needs: No Hearing needs: Yes Vision needs: Yes Questionnaire Thrive Questionnaire Date Thrive assessed: 01/29/25 I am a: Patient What is your living situation today?: I choose not to answer this question Within the past 12 months, did the food you bought not last and you didn't have the money to get more?: I choose not to answer this question Within the past 12 months, did you worry whether your food would run out before you got money to buy more?: I choose not to answer this question Do you have trouble paying for medicines?: I choose not to answer this question Do you have trouble getting transportation to medical appointments?: I choose not to answer this question Do you have trouble paying your heating and electricity bill?: I choose not to answer this question Do you have trouble taking care of your child, family member or friend?: I choose not to answer this question Do you have trouble with day-to-day activities such as bathing, preparing meals, shopping, managing finances, etc.?: I choose not to answer this question Are you currently unemployed and looking for a job?: No Are you interested in more education?: No Please select the resources that you would like help with: None Currently or been in a relationship where the following occur: I choose not to answer THRIVE Score: 0 MIGUELINA-7 AMB Questionnaire MIGUELINA-7 Date MIGUELINA - 7 assessed: 02/01/25 Source: Developed by Drs. Walt Tenorio, Tg Corrales, Charli Casillas and colleagues, with an educational hussein from [employer]. Review of Systems Const Denies chills, Denies fatigue, Denies fever(s), Denies headache(s) and Denies weakness ENT Denies dizziness and Denies headache(s) Card Denies dyspnea Resp Denies cough, Denies dyspnea, Denies wheezing and Denies other (shortness of breath) Musc Denies numbness and Denies tingling Neuro Denies dizziness, Denies headache(s), Denies numbness, Denies tingling and Denies weakness Psych Denies anxiety and Denies depression Endo Denies fatigue Aller/Immun Denies wheezing Physical exam (Primary Care) Vital Signs: Last Vital Signs Temp 97.8 F 06/13/25 10:17 Pulse 78 06/13/25 10:17 Resp 16 06/13/25 10:17 BP 130/60 06/13/25 10:17 BMI result Body Mass Index 27.8 Tobacco/Smoking Status: Tobacco use Status Tobacco use date assessed 05/05/25 06/13/25 10:19 Patient Tobacco Use Status Former Tobacco user 06/13/25 10:19 e-Cigarette/Vaping Use Never Used 06/13/25 10:19 Thrive Assessment: Date of Thrive Assessment Date Thrive assessed 01/29/25 06/13/25 10:19 Currently or been in a relationship where the following occur: I choose not to answer Const General: well developed; No acute distress Nutritional Appearance: well nourished Orientation/consciousness: patient oriented x3 HENMT Head: Yes normocephalic and Yes atraumatic Eyes General: appearance normal, both eyes and all related structures Pupils: Equal, round and reactive pupils present EOM: EOMs intact bilaterally Resp Effort & Inspection: normal respiratory effort Auscultation: clear to auscultation bilaterally Cardio Rate: regular rate Rhythm: regular rhythm Heart sounds: S1 normal heart sound present, S2 normal heart sound present, no gallops, no murmurs and no rubs Neuro General: patient oriented x3 and gait normal Cranial nerves: Yes Equal, round and reactive pupils present Psych Affect: normal affect Coding Level of Care Code Est Pt Level 4 (84526) Diagnoses Pre-operative clearance Z01.818 Hypertension I10 Hernia K46.9 Assessment & Plan Assessment & Plan (1) Pre-operative clearance: Code(s): Z01.818 - Encounter for other preprocedural examination Category: Medical Plan: 69-year-old?male?with?history?of hypertension?and?CVA presents?for?preoperative?clearance?prior?to?inguinal?hernia?repair History?of?hypertension?and?we have adjusted his med regimen. Taking losartan, amlodipine and hydrochlorothiazide as prescribed. Blood pressure today is fairly well controlled. Blood pressures at home who good control as well. History?of?CVA.??Stable.??He?is?on?aspirin?and?atorvastatin.??Will?continue to control?blood?pressure. No?history?of?heart?disease. Cardiac?exam?today?is?within?limits. Recent EKG 05/05/25: ?Normal?sinus?rhythm, left?atrial?enlarg ement,?right?bundle?branch?block, no?ST-T-wave?changes. No pulmonary?disease?and?normal?pulmonary?exam?today. No?coagulopathies. ?Patient?is?on?aspirin. Functional?reserve?fair Intermediate?risk?patient?for?intermediate?risk?procedure. Blood?pressure?control Now optimized. *No?contraindications?to?proceeding?with?proposed?procedure. Can?stop?aspirin?7?days?prior?to?procedure?then?resume?afterwards (2) Hypertension: Code(s): I10 - Essential (primary) hypertension Category: Medical Plan: As above. Blood pressure now fairly well controlled. Goal is less than 130/80 Continue losartan and amlodipine as prescribed Will increase hydrochlorothiazide 12.5 mg daily to 25 mg daily Hydrate well throughout the day and can taper off towards evening (3) Hernia: Code(s): K46.9 - Unspecified abdominal hernia without obstruction or gangrene Category: Medical Plan: Inguinal hernia and awaiting repair. Follow-up with Dr. Painter as recommended Orders: Orders Basic Metabolic Panel Today I10 - Essential (primary) hypertension, Z00.00 - Encounter for general adult medical examination without abnormal findings UA CC w/rflx Micro + Cult Today I10 - Essential (primary) hypertension, Z00.00 - Encounter for general adult medical examination without abnormal findings Comprehensive Met. Panel Today I10 - Essential (primary) hypertension Microalbumin, Random (w Creat) Today I10 - Essential (primary) hypertension Microalbumin, Random (w Creat) 1 Day I10 - Essential (primary) hypertension UA CC w/rflx Micro + Cult 1 Day I10 - Essential (primary) hypertension, Z00.00 - Encounter for general adult medical examination without abnormal findings Medications: Changed From hydrochlorothiazide 12.5 mg PO QAM 90 days 90 tabs 3RF To hydrochlorothiazide 25 mg PO QAM 90 tabs 3RF 90 days
[2025-06-13 10:17] VITALS: BP 130/60; PULSE 78; RESP 16; TEMP 36.6; BMI 27.8
== END 2025-06-13 10:50 | disposition home or self-care (01) ==
LOC: HO.HMCFM 10:10
PROVIDERS: PCP Family Medicine; Visit Provider Family Medicine
DX: Z01.818 Encounter for other preprocedural examination (principal); I10 Essential (primary) hypertension; K46.9 Unspecified abdominal hernia without obstruction or gangrene

== ENCOUNTER → 2025-06-13 10:09 | Outpatient (BNVA) | payer MEDICARE, SELFPAY | PROVIDERS: PCP Family Medicine; Visit Provider Family Medicine | DX: Z01.818 Encounter for other preprocedural examination (principal); I10 Essential (primary) hypertension; K46.9 Unspecified abdominal hernia without obstruction or gangrene | CPT/HCPCS: 99212 ==

== ENCOUNTER 2025-06-26 10:38 | Outpatient (AMB) | payer MEDICARE, SELFPAY ==
--- NOTE | 2025-06-26 10:40 | A.OFFVIS_ITS ---
Vital Signs 06/26/25 10:42 Height 5 ft 9 in Weight 187 lb 6.287 oz BMI 27.7 BP 161/76 H Blood Pressure Location Lt brachial Position Sitting Pulse 77 Intake Visit Reasons: Anemia Intake Note: Jose presents in the office as a new patient for anemia. CC: States that he has never had a colonoscopy and he is scheduled for a hernia surgery next week. [employer] Required: No Allergies No Known Allergies Allergy (Verified 06/26/25 10:44) HPI Comments Details: 70 y.o M with PMH of HTN, HLD, etOH use, who is here for anemia . Reports months of easy bruising and echhymosis. Takes baby aspirin daily. Was seen by PCP who ran blood work that shows mild NORMOCYTIC anemia. Has never had CRC screening. No fam hx of CRC. No rectal bleeding reported. No NSAID use. Does not report OTC or CAM. 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 The median shear wave velocity in the liver is 1.80 m/s, corresponding to a median liver stiffness of 9.82 kPa. The IQR/median value is 0.09. This is indicative of a quality data set. Findings are indicative of a high elastography value suggestive of compensated advanced chronic liver disease. [facility] Medical History Rotator cuff arthropathy Hypersomnia Snoring Numbness and tingling in right hand Bilateral cataracts Cataract (lens) fragments in eye following cataract surgery Hypertension Surgical History H/O vasectomy History of rotator cuff surgery Family History Sister Diabetes Social History Household Members: Spouse Housing: House Alcohol intake: current Alcohol intake frequency: 3 or more drinks per day Alc ohol type: beer Patient Tobacco Use Status: Former Tobacco user Cigarette Packs Per Day: 1 Years Smoked: 30 e-Cigarette/Vaping Use: Never Used Second Hand Smoke Exposure: No Advance Directives Date on File: 09/16/24 service: No Current occupational status: retired 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, 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 Current occupational exposures/hazards: Yes Cognitive needs: No Hearing needs: Yes Vision needs: Yes Review of Systems Const All systems reviewed & are unremarkable except as noted in HPI and below Physical Exam Exam Exam: No apparent distress hard of hearing, L ear better than R Nonicteric Abdomen soft, nondistended Alert and oriented x3, normal gait Vital Signs: Last Vital Signs Pulse 77 06/26/25 10:42 BP 161/76 H 06/26/25 10:42 BMI result Body Mass Index 27.7 Assessment & Plan Assessment & Plan (1) Normocytic anemia: Code(s): D64.9 - Anemia, unspecified Category: Medical (2) Leukopenia: Code(s): D72.819 - Decreased white blood cell count, unspecified Category: Medical (3) Easy bruising: Code(s): R23.3 - Spontaneous ecchymoses Category: Medical Plan pt with normocytic anemia and leukopenia with easy bruising. In the setting of etOH use. Will need to r/o underlying TONEY. Labs ordered. He is due for a colo anyway which we will book today. If labs confirm TONEY, will need EGD in addition to colo. May need hematology evaluation if non iron deficient. Plan: - Labs - COlo to be booked +/- EGD based on labs - PEG prep Rxed and instructions reviewed - Heme eval contingent on results Follow up after colo Medications: New peg 3350-electrolytes 236-22.74-6.74 -5.86 gram (Golytely) as per split prep instructions, until fecal effluent is clear 240 mL PO Q10M 4,000 mL 0RF colonoscopy Coding Level of Care Code New Pt Level 4 (35652) Complex EM visit Add On G2211 Diagnoses Normocytic anemia D64.9 Leukopenia D72.819 Easy bruising R23.3
[2025-06-26 10:42] VITALS: BP 161/76; PULSE 77; BMI 27.7
== END 2025-06-26 12:31 | disposition home or self-care (01) ==
LOC: HO.HGI 10:39
PROVIDERS: PCP Family Medicine; Visit Provider Internal Medicine
DX: D64.9 Anemia, unspecified (principal); D72.819 Decreased white blood cell count, unspecified; R23.3 Spontaneous ecchymoses
CPT/HCPCS: 99204; G2211

== ENCOUNTER → 2025-06-26 10:38 | Outpatient (BNVA) | payer MEDICARE, SELFPAY | PROVIDERS: PCP Family Medicine; Visit Provider Internal Medicine | DX: D64.9 Anemia, unspecified (principal); D72.819 Decreased white blood cell count, unspecified; R23.3 Spontaneous ecchymoses | CPT/HCPCS: 99202 ==

== ENCOUNTER 2025-07-03 09:16 | Day surgery (SDC) | payer MEDICARE, SELFPAY ==
[2025-06-27 12:49] VITALS: BMI 27.6
[2025-06-28 11:56] VITALS: BP 141/65; PULSE 72; RESP 16; O2SAT 98
--- NOTE | 2025-06-28 12:07 | P.CONAN_ITS ---
Documented by User: Anu Estrada NP 06/29/25 12:36 HPI - Anesthesia Eval Consult details Narrative: 70yo M for Left Hernia Inguinal Reducible with mesh, 07/03/25 Medically optimized per PCP 06/2025 eval with GI for anemia with future colo planned. 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 Discussed slow cut back preop PMFSH Active Problems Active Problems: All Active Problems Easy bruising (Acute) Leukopenia (Acute) Normocytic anemia (Acute) Hernia (Acute) Pre-operative clearance (Acute) Elevated LFTs (Acute) Anemia (Acute) Left inguinal hernia (Acute) Neck pain (Acute) Right shoulder pain (Acute) Paresthesia (Acute) Right sided numbness (Acute) CVA (cerebral vascular accident) (Acute) Laboratory exam ordered as part of routine general medical examination (Acute) Alcohol abuse (Acute) Hypertension (Acute) Brain TIA (Acute) Rotator cuff arthropathy (Acute) Hypersomnia (Acute) Snoring (Acute) Numbness and tingling in right hand (Acute) Past Medical History Medical History (Updated 06/26/25 @ 11:19 by Brittney Raymond MD) Rotator cuff arthropathy Hypersomnia Snoring Numbness and tingling in right hand Bilateral cataracts Cataract (lens) fragments in eye following cataract surgery Hypertension Family History Family History Sister Diabetes Family history of problems with anesthesia: No Surgical History Surgical History (Updated 06/27/25 @ 12:53 by Princess Wolfe RN) Hx of bilateral cataract extraction Hx of bilateral inguinal hernia repair H/O vasectomy History of rotator cuff surgery History of Problems with Anesthesia: No Social History Social History (Updated 06/28/25 @ 12:02 by Princess Wolfe RN) Household Members: Spouse Housing: House Are you a primary professional healthcare representative to a significant other at home: No Do you presently have visiting nurse or other home services: No Alcohol intake: current Alcohol intake frequency: 3 or more drinks per day Alcohol type: beer Patient Tobacco Use Status: Former Tobacco user Cigarette Packs Per Day: 1 Years Smoked: 30 e-Cigarette/Vaping Use: Never Used Second Hand Smoke Exposure: No Use of substances other than those prescribed or required for medical reasons: No Substance Use Type: Marijuana Have you been hit, kicked, punched, or otherwise hurt by someone within the past year? 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 Current occupational exposures/hazards: Yes Cognitive needs: No Hearing needs: Yes Vision needs: Yes Meds Allergies Allergy/AdvReac Type Severity Reaction Status Date / Time No Known Allergies Allergy Verified 06/27/25 12:48 Home Medications ?Medication ?Instructions ?Recorded ?Confirmed ?Last Taken ?Type amlodipine 5 mg tablet 5 mg PO .DAILY@92906/27/25 07/03/25 07/03/25 08:00 History aspirin 81 mg tablet,delayed 81 mg PO .DAILY@06/0906/27/25 Unknown History release hydrochlorothiazide 25 mg tablet 25 mg PO .DAILY@39906/27/25 06/27/25 Unknown History losartan 100 mg tablet 100 mg PO .DAILY@92907/03/25 07/02/25 08:00 History Exam Height,Weight and Vital Signs: Height 5 ft 9 in Weight 84.822 kg Last Vital Signs Pulse 72 06/28/25 11:56 Resp 16 06/28/25 11:56 BP 141/65 H 06/28/25 11:56 Pulse Ox 98 06/28/25 11:56 O2 Del Method Room Air 06/28/25 11:56 Pertinent Lab Results Pertinent Lab Results: Lab Results 06/28/25 Range/Units 12:29 WBC 5.7 (4.8-10.8) X10*3/uL RBC 4.69 (4.60-5.80) X10*6/uL Hgb 14.6 (14.0-18.0) g/dl Hct 43.4 (42.0-52.0) % MCV 92.5 (80.0-98.0) fL MCH 31.1 (27.0-33.0) pg MCHC 33.6 (31.0-36.0) g/dl RDW 12.7 (11.0-16.0) % Plt Count 284 (160-400) X10*3/uL MPV 9.6 (9.4-12.4) fL Absolute Nucleated RBC 0.000 (0.0-0.012) X10*3/uL Nucleated RBC % (auto) 0.0 (0.0-0.2) /100WBC PT 10.3 L (10.9-12.4) SEC INR 0.9 (0.9-1.1) Sodium 136 (135-145) mmol/L Potassium 4.1 (3.3-5.1) mmol/L Chloride 97 (96-108) mmol/L Carbon Dioxide 29 (22-29) mmol/L Anion Gap 14 (12-20) BUN 14 (9-16) mg/dL Creatinine 0.85 (0.5-1.4) mg/dL Estim Creat Clear Calc 80.8 Estimated GFR > 60 Random Glucose 97 (60-115) mg/dL Calcium 9.6 D (8.4-10.2) mg/dL Total Bilirubin 0.6 (0.0-1.0) mg/dL AST 48 H (5-37) U/L ALT 47 H (0-40) U/L Alkaline Phosphatase 50 (39-117) U/L Total Protein 7.3 (6.5-8.0) g/dL Albumin 4.5 (3.5-5.0) g/dL Narrative Narrative: EKG 04/2025 NSR @ 65 LAE RBBB US abdomen comp w elastography 03/2025 IMPRESSION: Hepatic steatosis. The median shear wave velocity in the liver is 1.80 m/s, corresponding to a median liver stiffness of 9.82 kPa. The IQR/median value is 0.09. This is indicative of a quality data set. Findings are indicative of a high elastography value suggestive of compensated advanced chronic liver disease. Airway Mallampati Class: III TM Dist: >3cm Neck ROM: Full (Occassional stiff neck) Loose/Missing/Broken Teeth: Yes (many missing and broken, pt denies any loose) Heart: RRR Lungs: CTAB Assessment and Plan Assessment Anesthesia Assessment: Anesthesia Plan Discussed and PAT Visit Final Anesthetic Review Family History of Problems with Anesthesia: No History of Problems with Anesthesia: No Documented by User: Sanna Roa MD 07/03/25 11:45 PMFSH Past Medical History Medical History (Updated 06/26/25 @ 11:19 by Brittney Raymond MD) Rotator cuff arthropathy Hypersomnia Snoring Numbness and tingling in right hand Bilateral cataracts Cataract (lens) fragments in eye following cataract surgery Hypertension Family History Family History Sister Diabetes Surgical History Surgical History (Updated 06/27/25 @ 12:53 by Princess Wolfe RN) Hx of bilateral cataract extraction Hx of bilateral inguinal hernia repair H/O vasectomy History of rotator cuff surgery Social History Social History (Updated 06/28/25 @ 12:02 by Princess Wolfe, KESHA) Household Members: Spouse Housing: House Are you a primary professional healthcare representative to a significant other at home: No Do you presently have visiting nurse or other home services: No Alcohol intake: current Alcohol intake frequency: 3 or more drinks per day Alcohol type: beer Patient Tobacco Use Status: Former Tobacco user Cigarette Packs Per Day: 1 Years Smoked: 30 e-Cigarette/Vaping Use: Never Used Second Hand Smoke Exposure: No Use of substances other than those prescribed or required for medical reasons: No Substance Use Type: Marijuana Have you been hit, kicked, punched, or otherwise hurt by someone within the past year? 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 Current occupational exposures/hazards: Yes Cognitive needs: No Hearing needs: Yes Vision needs: Yes Meds Allergies Allergy/AdvReac Type Severity Reaction Status Date / Time No Known Allergies Allergy Verified 06/27/25 12:48 Home Medications ?Medication ?Instructions ?Recorded ?Confirmed ?Last Taken ?Type amlodipine 5 mg tablet 5 mg PO .DAILY@92906/27/25 07/03/25 07/03/25 08:00 History aspirin 81 mg tablet,delayed 81 mg PO .DAILY@06/0906/27/25 Unknown History release hydrochlorothiazide 25 mg tablet 25 mg PO .DAILY@39906/27/25 06/27/25 Unknown History losartan 100 mg tablet 100 mg PO .DAILY@92907/03/25 07/02/25 08:00 History Exam Airway Mallampati Class: II (missing a couple teeth, denies anything loose) Assessment and Plan Final Anesthetic Review NPO: Yes ASA Class: II Final Preanesthetic Review: No Changes in Pt Med Stat, Meds/Allgs Chart Reviewed and Consent Obtained/Reviewed Patient Risk: Low Procedure Risk: Low Anesthetic Plan Anesthetic Plan: GA Disposition: Standard PACU
[2025-06-28 13:50] LABS: Hematocrit 43.4 % (42.0-52.0); Hemoglobin 14.6 g/dl (14.0-18.0); Mean Corpuscular HGB Conc 33.6 g/dl (31.0-36.0); Mean Corpuscular Hemoglobin 31.1 pg (27.0-33.0); Mean Corpuscular Volume 92.5 fL (80.0-98.0); NRBC Abs Auto 0.000 X10*3/uL (0.0-0.012); NRBC Pct Auto 0.0 /100WBC (0.0-0.2); Platelet Count 284 X10*3/uL (160-400); Red Blood Count 4.69 X10*6/uL (4.60-5.80); White Blood Count 5.7 X10*3/uL (4.8-10.8)
[2025-06-28 13:55] LABS: INTERNATIONAL NORM RATIO 0.9 (0.9-1.1); Prothrombin Time 10.3 SEC (10.9-12.4)
[2025-06-28 14:21] LABS: Alanine Aminotransferase 47 U/L (0-40); Albumin Level 4.5 g/dL (3.5-5.0); Alkaline Phosphatase 50 U/L (39-117); Anion Gap 14 (12-20); Aspartate Amino Transferase 48 U/L (5-37); Blood Urea Nitrogen 14 mg/dL (9-16); Calcium 9.6 mg/dL (8.4-10.2); Carbon Dioxide 29 mmol/L (22-29); Chloride 97 mmol/L (96-108); Creatinine Clr Calc Pharmacy 80.8; Estimated Glomerular Filt Rate > 60; Potassium 4.1 mmol/L (3.3-5.1); Sodium 136 mmol/L (135-145); Total Protein 7.3 g/dL (6.5-8.0)
[2025-07-03] VITALS (8 sets, daily range): BP systolic 141–155; BP diastolic 60–77; PULSE 70–80; RESP 11–17; TEMP 36.4–36.9; O2SAT 93–100; BMI 27.2
[2025-07-03] MEDS: Lactated Ringers 1,000 ML 100 ML IVCONT (10:03)
--- NOTE | 2025-07-03 11:38 | MHC.SHP ---
Pre-Procedural Eval Section A - 24 Hr Update-Section A only Date of Service: 07/03/25 The patient is an INPATIENT: No Changes since office visit: Yes Patient answered all questions; No Cold of Flu in the past 2 weeks, No New Medical Problems and No Changes in Medication The patient has been examined within 24 hours of the surgical procedure. The History & Physical has been completed within 30 days and I have reviewed it.: No Section B - Complete if H&P > 30 days Chief Complaint: Unilateral inguinal hernia, without obstruction Details of Present Illness: No change in symptoms left inguinal hernia Relevant Family History (Specify if Yes): No Relevant Social History: None Present Medications: see Short Stay Collaborative assessment Medical History: No relevant PMH History of Previous Operations: No relevant previous surgery Allergies: Allergies Allergy/AdvReac Type Severity Reaction Status Date / Time No Known Allergies Allergy Verified 06/27/25 12:48 Review of Systems Sugical H&P ROS: Negative: Constitution, Cardiovascular, Respiratory, Neurological, Psychiatric, Hem-Onc, Allergic/Immunologic, Gastrointestinal, Genitourinary, Musculoskeletal and Integumentary Exam Surgical H&P Exam: Normal: HEENT, Normal: Heart, Normal: Lungs, Normal: Extremities, Normal: Abdomen and Normal: Skin Plan Diagnosis/Plan: Unchanged I have reviewed the history and physical and performed a pertinent physical examination on my patient. No changes have occurred unless specified. Time Spent With Patient Time: Total time managing care of this patient today ____ minutes.
--- NOTE | 2025-07-03 12:19 | HO.ANESPROP2 ---
[facility] Active Problems Active Problems: All Active Problems (Updated 06/26/25 @ 11:19 by Brittney Raymond MD) Easy bruising (Acute) Leukopenia (Acute) Normocytic anemia (Acute) Hernia (Acute) Pre-operative clearance (Acute) Elevated LFTs (Acute) Anemia (Acute) Left inguinal hernia (Acute) Neck pain (Acute) Right shoulder pain (Acute) Paresthesia (Acute) Right sided numbness (Acute) CVA (cerebral vascular accident) (Acute) Laboratory exam ordered as part of routine general medical examination (Acute) Alcohol abuse (Acute) Hypertension (Acute) Brain TIA (Acute) Rotator cuff arthropathy (Acute) Hypersomnia (Acute) Snoring (Acute) Numbness and tingling in right hand (Acute) Past Medical History Medical History Rotator cuff arthropathy Hypersomnia Snoring Numbness and tingling in right hand Bilateral cataracts Cataract (lens) fragments in eye following cataract surgery Hypertension Functional capacity: independent ambulation Family History Family History Sister Diabetes Family history of problems with anesthesia: No Surgical History Surgical History Hx of bilateral cataract extraction Hx of bilateral inguinal hernia repair H/O vasectomy History of rotator cuff surgery History of Problems with Anesthesia: No Social History Social History Household Members: Spouse Housing: House Are you a primary weekend caregiver to a significant other at home: No Do you presently have visiting nurse or other home services: No Alcohol intake: current Alcohol intake frequency: 3 or more drinks per day Alcohol type: beer Patient Tobacco Use Status: Former Tobacco user Cigarette Packs Per Day: 1 Years Smoked: 30 e-Cigarette/Vaping Use: Never Used Second Hand Smoke Exposure: No Use of substances other than those prescribed or required for medical reasons: No Substance Use Type: Marijuana Have you been hit, kicked, punched, or otherwise hurt by someone within the past year? 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 Current occupational exposures/hazards: Yes Cognitive needs: No Hearing needs: Yes Vision needs: Yes Meds Allergies Allergy/AdvReac Type Severity Reaction Status Date / Time No Known Allergies Allergy Verified 06/27/25 12:48 Active Medications: Current Medications Fentanyl (Fentanyl Citrate/Pf 100 Mcg/2 Ml Vial) 50 mcg IVPUSH Q5M PRN PRN Reason: Pain, Moderate to Severe (Pain Scale 4-10) Stop: 07/03/25 17:45 Lactated Ringer's (Lr) 1,000 mls @ 100 mls/hr IVCONT .Q10H SELINA Last Admin: 07/03/25 10:03 Dose: 100 mls/hr Naloxone HCl (Naloxone Hcl 0.4 Mg/Ml Vial) 0.04 mg IVPUSH Q5M PRN PRN Reason: Excessive sedation or RR < 8 Ondansetron HCl (Ondansetron Hcl 4 Mg/2 Ml Vial) 4 mg IVPUSH ONCE PRN PRN Reason: Nausea and Vomiting Stop: 07/03/25 17:45 Oxycodone HCl (Oxycodone Hcl Immed Release 5 Mg Tablet) 5 mg PO ONCE PRN PRN Reason: Pain, Moderate(Pain Scale 4-6) if no IV Access Stop: 07/03/25 17:45 Home Medications ?Medication ?Instructions ?Recorded ?Confirmed ?Last Taken ?Type amlodipine 5 mg tablet 5 mg PO .DAILY@92906/27/25 07/03/25 07/03/25 08:00 History aspirin 81 mg tablet,delayed 81 mg PO .DAILY@92906/27/25 06/27/25 Unknown History release hydrochlorothiazide 25 mg tablet 25 mg PO .DAILY@39906/27/25 06/27/25 Unknown History losartan 100 mg tablet 100 mg PO .DAILY@92906/27/25 07/03/25 07/02/25 08:00 History Exam Height,Weight and Vital Signs: Height 5 ft 9 in Weight 83.5 kg Last Vital Signs Temp 98.5 F 07/03/25 10:02 Pulse 80 07/03/25 10:02 Resp 16 07/03/25 10:02 BP 154/72 H 07/03/25 10:02 Pulse Ox 100 07/03/25 10:02 O2 Del Method Room Air 07/03/25 10:02 Pertinent Lab Results Pertinent Lab Results: Laboratory Tests 06/28/25 12:29 WBC 5.7 RBC 4.69 Hgb 14.6 Hct 43.4 MCV 92.5 MCH 31.1 MCHC 33.6 RDW 12.7 Plt Count 284 MPV 9.6 Absolute Nucleated RBC 0.000 Nucleated RBC % (auto) 0.0 PT 10.3 L INR 0.9 Sodium 136 Potassium 4.1 Chloride 97 Carbon Dioxide 29 Anion Gap 14 BUN 14 Creatinine 0.85 Estim Creat Clear Calc 80.8 Estimated GFR > 60 Random Glucose 97 Calcium 9.6 D Total Bilirubin 0.6 AST 48 H ALT 47 H Alkaline Phosphatase 50 Total Protein 7.3 Albumin 4.5 Airway Mallampati Class: II TM Dist: >3cm Neck ROM: Full Heart: RRR Lungs: CTA Assessment and Plan Assessment Anesthesia Assessment: Anesthesia Plan Discussed and Chart Reviewed Final Anesthetic Review Family History of Problems with Anesthesia: No History of Problems with Anesthesia: No NPO: Yes ASA Class: II Final Preanesthetic Review: Meds/Allgs Chart Reviewed, Consent Obtained/Reviewed and Anes Risks/Benef Reviewed Patient Risk: Intermediate Procedure Risk: Intermediate Anesthetic Plan Anesthetic Plan: GA Disposition: Standard PACU
--- NOTE | 2025-07-03 13:08 | P.OP_ITS ---
Operative Note Operative Note Date of Service: 07/03/25 Narrative: Preoperative diagnosis: Large left inguinal hernia Postoperative diagnosis: Same Procedure: Repair of left inguinal hernia with mesh Surgeon: Jake Painter MD Lithopress Operator: Angelica Ayoub PA-C; Jemima Villagomez MS-3, Anesthesia: General LMA Indications for procedure: 70-year-old male patient presenting with a large left inguinal hernia which extended down to just above the scrotum. The hernia increases in size with lifting and straining but reduces with light pressure. On examination the patient was found to have a reducible left inguinal hernia. Operative findings: Large direct left inguinal hernia repaired with a large extended PHS mesh Specimen: None Estimated blood loss: 5 mL Complications: None Procedure details: Patient brought to the OR and placed in a supine position. After administering general anesthesia the patient's abdomen was prepped with ChloraPrep and draped in a sterile fashion. A surgical time-out was called the consent confirmed. Patient received preoperative antibiotics and Venodyne boots were in place. Local anesthesia consisting of 0.5% Sensorcaine was then infiltrated over the left inguinal ligament. An incision was then made with a scalpel over the left inguinal ligament and carried out through subcutaneous tissue, past Nikolai's fascia and up to the external oblique aponeurosis. Additional local was placed below the external oblique aponeurosis. This was then incised with a scalpel widened with the Metzenbaum scissors. The spermatic cord was found to be scarred and markedly displaced due to a large direct inguinal hernia. The direct component was reduce and the fascia imbricated using a running 0 Polysorb suture. The spermatic cord was then dissected free from the surrounding inguinal canal and retracted using a [place] drain. A preperitoneal space was then created using an open Ray-Kymberly sponge. A large extended PHS mesh was then obtained. The circular underlay was deployed within the preperitoneal space and the overlay was secured to the pubic tubercle, conjoined tendon, and shelving edge of the inguinal ligament using a 0 Polysorb suture. A slit was made in the mesh in the mesh wrapped around the spermatic cord at the internal ring. This was then secured to the shelving edge of the inguinal ligament using the 0 Polysorb suture. This was made tight enough to allow passage of the tip of an index finger. The remaining mesh was then placed laterally below the external oblique aponeurosis. Wounds were then irrigated with saline solution and suctioned dry. External oblique aponeurosis was then closed using a running 2-0 Polysorb suture. Approximately 5 mL of Zenrelef was instilled below the external oblique aponeurosis for postoperative pain control. Nikolai's fascia and dermis were then reapproximated using interrupted 3-0 Polysorb sutures. Skin was closed using a running subcuticular 4-0 Polysorb suture. Steri-Strips, 4 x 4 gauze and Tegaderm were then applied. The patient tolerated the procedure well. Sponge, instrument, and needle counts were reported as correct. The patient was transferred to PACU in stable condition.
--- NOTE | 2025-07-03 14:54 | HO.POSTANES ---
Post Anesthesia Evaluation Post Anesthesia Evaluation Date of Service: 07/03/25 Vital Signs: Vital Signs Temp Pulse Resp BP Pulse Ox O2 Del Method 07/03/25 14:31 97.5 F 70 15 155/77 H 97 Room Air 07/03/25 14:05 72 16 149/60 H 97 Room Air 07/03/25 13:50 74 13 152/73 H 96 Room Air 07/03/25 13:35 74 17 147/63 H 95 Room Air 07/03/25 13:30 72 11 L 141/67 H 96 Room Air 07/03/25 13:25 74 16 148/70 H 94 Room Air 07/03/25 13:20 98.1 F 75 16 142/66 H 93 Room Air 07/03/25 10:02 98.5 F 80 16 154/72 H 100 Room Air Anesthesia: General LMA Mental Status: Awake Pain Control: Satisfactory Nausea/Vomiting: None Hydration: Adequate Anesthesia-Related Issues: No Anes. Related Issues
== END 2025-07-03 15:03 | disposition home or self-care (01) ==
PROVIDERS: PCP Family Medicine; Visit Provider Surgery
PROC: (CPT 49505; principal; 2025-07-03 11:50)
DX: K40.90 Unilateral inguinal hernia, without obstruction or gangrene, not specified as recurrent (principal); I10 Essential (primary) hypertension; Z86.73 Personal history of transient ischemic attack (TIA), and cerebral infarction without residual deficits; Z79.82 Long term (current) use of aspirin; Z79.899 Other long term (current) drug therapy; Z98.52 Vasectomy status; Z98.890 Other specified postprocedural states; Z87.891 Personal history of nicotine dependence
CPT/HCPCS: 49505; 36415; 80053; 85027; 85610; C1781; C9088; J0131; J0690; J1100; J2003; J2250; J2405; J2704; J3010

== ENCOUNTER → 2025-07-03 09:16 | Outpatient (BNV) | payer MEDICARE, SELFPAY | PROVIDERS: PCP Family Medicine; Visit Provider Surgery | DX: K40.90 Unilateral inguinal hernia, without obstruction or gangrene, not specified as recurrent (principal) | CPT/HCPCS: 49505 ==

== ENCOUNTER 2025-07-14 09:47 | Outpatient (AMB) | payer MEDICARE, SELFPAY ==
--- NOTE | 2025-07-14 10:18 | A.OFFVIS_ITS ---
Vital Signs 07/14/25 10:25 Height 5 ft 9 in Weight 182 lb 15.739 oz BMI 27.0 BP 125/68 Blood Pressure Location Lt brachial Position Sitting Pulse 88 Intake Visit Reasons: S/P LIH w/mesh Intake Note: Patient is seen in office for post op assessment post left inguinal hernia repair. Pt c/o: denies any concerns, slowly healing surgery:07/03/25 Systems Protection Technician Required: No Accompanied by: Self / Same As Patient Allergies No Known Allergies Allergy (Verified 07/14/25 10:27) Medication List - Last Reconciled 07/14/25 by Jake Painter MD amlodipine 5 mg See Protocol PO .DAILY@30 aspirin 81 mg PO .DAILY@30 atorvastatin 40 mg PO BEDTIME hydrochlorothiazide 25 mg PO .DAILY@0400 losartan 100 mg PO .DAILY@0930 peg 3350-electrolytes 236-22.74-6.74 -5.86 gram (Golytely) 240 mL PO Q10M HPI Comments Details: 70-year-old male patient returning 1 week following repair of a left inguinal hernia with mesh on 07/03/2025. Overall he is feeling improved with decreased abdominal pain and swelling. He is eating well and denies any difficulties with his bowels. He returns today for postoperative check. [facility] Medical History Rotator cuff arthropathy Hypersomnia Snoring Numbness and tingling in right hand Bilateral cataracts Cataract (lens) fragments in eye following cataract surgery Hypertension Surgical History Hx of bilateral cataract extraction Hx of bilateral inguinal hernia repair H/O vasectomy History of rotator cuff surgery Family History Sister Diabetes Social History Household Members: Spouse Housing: House Are you a primary healthcare economics consultant to a significant other at home: No Do you presently have visiting nurse or other home services: No 75 years or older and lives alone: No Alcohol intake: current Alcohol intake frequency: 3 or more drinks per day Alcohol type: beer Patient Tobacco Use Status: Former Tobacco user Tobacco use type: Cigarette Cigarette Packs Per Day: 1 Years Smoked: 30 e-Cigarette/Vaping Use: Never Used Second Hand Smoke Exposure: No Substance Use Type: Marijuana Advance Directives Date on File: 09/16/24 service: No Current occupational status: retired 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 Steri-Strips are intact. No hernias noted with Valsalva maneuvers. Neuro General: patient oriented x3 Extrem General: No edema Assessment & Plan Assessment & Plan (1) Left inguinal hernia: Code(s): K40.90 - Unilateral inguinal hernia, without obstruction or gangrene, not specified as recurrent Category: Surgical Plan 70-year-old male patient returning 1 week following repair of a left inguinal hernia with mesh. He tolerated the procedure well in his wounds are healing nicely. He should continue to avoid lifting greater than 10 lb and return in approximately 1 month for follow-up examination. Coding Level of Care Code Global (61402) Diagnoses Left inguinal hernia K40.90
[2025-07-14 10:25] VITALS: BP 125/68; PULSE 88; BMI 27.0
== END 2025-07-14 10:33 | disposition home or self-care (01) ==
LOC: HO.HGS 09:48
PROVIDERS: PCP Family Medicine; Visit Provider Surgery
DX: K40.90 Unilateral inguinal hernia, without obstruction or gangrene, not specified as recurrent (principal)
CPT/HCPCS: 99024

== ENCOUNTER → 2025-07-14 09:47 | Outpatient (BNVA) | payer MEDICARE, SELFPAY | PROVIDERS: PCP Family Medicine; Visit Provider Surgery | DX: K40.90 Unilateral inguinal hernia, without obstruction or gangrene, not specified as recurrent (principal) | CPT/HCPCS: 99212 ==

== ENCOUNTER 2025-08-18 10:23 | Outpatient (AMB) | payer MEDICARE, SELFPAY ==
[2025-08-18 10:34] VITALS: BP 135/61; PULSE 71; BMI 28.0
--- NOTE | 2025-08-18 10:34 | MHC.OFFVIS ---
Vital Signs 08/18/25 10:34 Height 5 ft 9 in Weight 189 lb 6 oz BMI 28.0 BP 135/61 Blood Pressure Location Rt brachial Position Sitting Pulse 71 Intake Visit Reasons: S/P LIH w/mesh Intake Note: Patient is seen in office for one month follow up visit, post LIH repair. Pt c/o: no complaints pertaining to surgery. Senior Functional Analyst Required: No Accompanied by: Self / Same As Patient Allergies No Known Allergies Allergy (Verified 08/18/25 10:40) HPI Comments Details: 70-year-old male patient returning one-month following repair of a left inguinal hernia with mesh on 07/03/2025. Overall he is feeling improved with decreased abdominal pain and swelling. He is eating well and denies any difficulties with his bowels. He returns today for postoperative check. [facility] Medical History Rotator cuff arthropathy Hypersomnia Snoring Numbness and tingling in right hand Bilateral cataracts Cataract (lens) fragments in eye following cataract surgery Hypertension Surgical History (Updated 08/16/25 @ 12:44 by XAVIER Vasques) Hx of left inguinal hernia repair (07/03/25) Hx of bilateral cataract extraction Hx of bilateral inguinal hernia repair H/O vasectomy History of rotator cuff surgery Family History Sister Diabetes Social History Household Members: Spouse Housing: House Are you a primary day care aide to a significant other at home: No Do you presently have visiting nurse or other home services: No 75 years or older and lives alone: No Alcohol intake: current Alcohol intake frequency: 3 or more drinks per day Alcohol type: beer Patient Tobacco Use Status: Former Tobacco user Tobacco use type: Cigarette Cigarette Packs Per Day: 1 Years Smoked: 30 e-Cigarette/Vaping Use: Never Used Second Hand Smoke Exposure: No Substance Use Type: Marijuana Advance Directives Date on File: 09/16/24 service: No Current occupational status: retired 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 No hernias noted with Valsalva maneuvers. Neuro General: patient oriented x3 Extrem General: No edema Assessment & Plan Assessment & Plan (1) Left inguinal hernia: Code(s): K40.90 - Unilateral inguinal hernia, without obstruction or gangrene, not specified as recurrent Category: Surgical Plan 70-year-old male patient returning one-month following repair of a left inguinal hernia with mesh. He tolerated the procedure well in his wounds are healing nicely. He may resume normal activity without restriction and should follow up as needed. Coding Level of Care Code Global (37634) Diagnoses Left inguinal hernia K40.90
== END 2025-08-18 10:42 | disposition home or self-care (01) ==
LOC: HO.HGS 10:24
PROVIDERS: PCP Family Medicine; Visit Provider Surgery
DX: K40.90 Unilateral inguinal hernia, without obstruction or gangrene, not specified as recurrent (principal)
CPT/HCPCS: 99024

== ENCOUNTER → 2025-08-18 10:23 | Outpatient (BNVA) | payer MEDICARE, SELFPAY | PROVIDERS: PCP Family Medicine; Visit Provider Surgery | DX: K40.90 Unilateral inguinal hernia, without obstruction or gangrene, not specified as recurrent (principal) | CPT/HCPCS: 99212 ==

== ENCOUNTER 2025-09-06 10:32 | Outpatient (REF) | payer MEDICARE, SELFPAY ==
[2025-09-06 10:59] LABS: MANUAL DIFF FLAG NO
[2025-09-06 11:44] LABS: Hematocrit 40.0 % (42.0-52.0); Hemoglobin 13.6 g/dl (14.0-18.0); Imm Gran Abs Auto 0.02 X10*3/uL (0.00-0.03); Imm Gran Pct Auto 0.3 % (0.0-0.4); Lymphocytes Absolute Auto 1.1 X10*3/uL (1.2-4.9); Mean Corpuscular HGB Conc 34.0 g/dl (31.0-36.0); Mean Corpuscular Hemoglobin 31.1 pg (27.0-33.0); Mean Corpuscular Volume 91.5 fL (80.0-98.0); NRBC Abs Auto 0.000 X10*3/uL (0.0-0.012); NRBC Pct Auto 0.0 /100WBC (0.0-0.2); Platelet Count 282 X10*3/uL (160-400); Red Blood Count 4.37 X10*6/uL (4.60-5.80); White Blood Count 5.9 X10*3/uL (4.8-10.8)
[2025-09-06 12:21] LABS: Alanine Aminotransferase 38 U/L (0-40); Albumin Level 4.4 g/dL (3.5-5.0); Alkaline Phosphatase 55 U/L (39-117); Anion Gap 12 (12-20); Aspartate Amino Transferase 45 U/L (5-37); Blood Urea Nitrogen 13 mg/dL (9-16); Calcium 9.5 mg/dL (8.4-10.2); Carbon Dioxide 30 mmol/L (22-29); Chloride 97 mmol/L (96-108); Estimated Glomerular Filt Rate > 60; Iron 118 mcg/dL (45-160); Percent Iron Saturation 42 % (15-50); Potassium 4.3 mmol/L (3.3-5.1); Sodium 135 mmol/L (135-145); Total Iron Binding Capacity 278 mcg/dL (228-428); Total Protein 7.2 g/dL (6.5-8.0); Unsaturated Iron Binding 160 ug/dL
[2025-09-06 12:23] LABS: Appearance Urine Clear; Glucose Urine UA Negative (Negative); PH 6.0 (5.0-9.0); Specific Gravity - Urine 1.010 (1.005-1.025)
[2025-09-06 12:53] LABS: Ferritin 457 ng/mL (20-250); Folate 11.6 ng/mL (> or = 4.0); Vitamin B12 288 pg/mL (200-900)
== END 2025-09-06 10:33 | disposition home or self-care (01) ==
LOC: HO.LAB 10:32
PROVIDERS: Physician Assistant; PCP Family Medicine; Visit Provider Family Medicine
DX: Z00.00 Encounter for general adult medical examination without abnormal findings (principal); I10 Essential (primary) hypertension; K40.90 Unilateral inguinal hernia, without obstruction or gangrene, not specified as recurrent; D64.9 Anemia, unspecified; R79.89 Other specified abnormal findings of blood chemistry
CPT/HCPCS: 36415; 80053; 81003; 82043; 82248; 82570; 82607; 82728; 82746; 83540; 85025

== ENCOUNTER 2025-09-15 11:06 | Outpatient (AMB) | payer MEDICARE, SELFPAY ==
--- NOTE | 2025-09-15 12:45 | MHC.PC.OV ---
Vital Signs 09/15/25 12:46 Height 5 ft 9 in Weight 192 lb BMI 28.4 BP 126/66 Blood Pressure Location Rt brachial Position Sitting Respiration 16 Pulse 68 Pulse Source Pulse Oximeter Temp 97.8 F Temp Source Oral Pulse Oximetry (%) 98 Oxygen Delivery Method Room Air Intake Visit Reasons: f/u HTN, labs Intake Note: patient is scheduled for htn and lab review labs have been completed Animal Handler Required: No Allergies No Known Allergies Allergy (Verified 09/15/25 12:46) Tobacco use date assessed: 05/05/25 Dental Screening Dental Screen Date: 05/05/25 HPI f/u HTN, labs HPI Details 70 y/o male presents to f/u HTN, labs. Blood pressure today 126/66, 68p. He is on amlodipine 5mg, HCTZ 25mg, losartan 100mg daily. Labs drawn 09/06/25. Reviewed labs with pt. Mild anemia. Elevated AST of 45. ALT 38. Ongoing EtOH use. HPI Comments History of Present Illness Details Documentation assistance for Rob Bruner MD, was provided by Rizwan Olivera,? Gl[employer] on 09/15/2025 at 1:03 PM EST. I, Dr. Bruner, have read, observed, and verified documentation. ? PFSH Medical History Rotator cuff arthropathy Hypersomnia Snoring Numbness and tingling in right hand Bilateral cataracts Cataract (lens) fragments in eye following cataract surgery Hypertension Surgical History Hx of left inguinal hernia repair (07/03/25) Hx of bilateral cataract extraction Hx of bilateral inguinal hernia repair H/O vasectomy History of rotator cuff surgery Family History Sister Diabetes Social History Household Members: Spouse Housing: House Are you a primary career transition specialist to a significant other at home: No Do you presently have visiting nurse or other home services: No 75 years or older and lives alone: No Alcohol intake: current Alcohol intake frequency: 3 or more drinks per day Alcohol type: beer Patient Tobacco Use Status: Former Tobacco user Tobacco use type: Cigarette Cigarette Packs Per Day: 1 Years Smoked: 30 Packs Per Year: 30 e-Cigarette/Vaping Use: Never Used Second Hand Smoke Exposure: No Substance Use Type: Marijuana Advance Directives Date on File: 09/16/24 service: No Current occupational status: retired 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, 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 Current occupational exposures/hazards: Yes Cognitive needs: No Hearing needs: Yes Vision needs: Yes Questionnaire Thrive Questionnaire Date Thrive assessed: 01/29/25 I am a: Patient What is your living situation today?: I choose not to answer this question Within the past 12 months, did the food you bought not last and you didn't have the money to get more?: I choose not to answer this question Within the past 12 months, did you worry whether your food would run out before you got money to buy more?: I choose not to answer this question Do you have trouble paying for medicines?: I choose not to answer this question Do you have trouble getting transportation to medical appointments?: I choose not to answer this question Do you have trouble paying your heating and electricity bill?: I choose not to answer this question Do you have trouble taking care of your child, family member or friend?: I choose not to answer this question Do you have trouble with day-to-day activities such as bathing, preparing meals, shopping, managing finances, etc.?: I choose not to answer this question Are you currently unemployed and looking for a job?: No Are you interested in more education?: No Please select the resources that you would like help with: None Currently or been in a relationship where the following occur: I choose not to answer THRIVE Score: 0 MIGUELINA-7 AMB Questionnaire MIGUELINA-7 Date MIGUELINA - 7 assessed: 02/01/25 Source: Developed by Drs. Walt Tenorio, Tg Corrales, Charli Casillas and colleagues, with an educational hussein from [employer]. Review of Systems Const Denies chills, Denies fatigue, Denies fever(s), Denies headache(s) and Denies weakness ENT Denies dizziness and Denies headache(s) Card Denies dyspnea Resp Denies cough, Denies dyspnea, Denies wheezing and Denies other (shortness of breath) Musc Denies numbness and Denies tingling Neuro Denies dizziness, Denies headache(s), Denies numbness, Denies tingling and Denies weakness Psych Denies anxiety and Denies depression Endo Denies fatigue Aller/Immun Denies wheezing Physical exam (Primary Care) Vital Signs: Last Vital Signs Temp 97.8 F 09/15/25 12:46 Pulse 68 09/15/25 12:46 Resp 16 09/15/25 12:46 BP 126/66 09/15/25 12:46 Pulse Ox 98 09/15/25 12:46 Oxygen Delivery Method Room Air 09/15/25 12:46 BMI result Body Mass Index 28.4 Tobacco/Smoking Status: Tobacco use Status Tobacco use date assessed 05/05/25 09/15/25 12:49 Patient Tobacco Use Status Former Tobacco user 09/15/25 12:49 Tobacco use type Cigarette 09/15/25 12:49 e-Cigarette/Vaping Use Never Used 09/15/25 12:49 Thrive Assessment: Date of Thrive Assessment Date Thrive assessed 01/29/25 09/15/25 12:49 Currently or been in a relationship where the following occur: I choose not to answer Const General: well developed; No acute distress Nutritional Appearance: well nourished Orientation/consciousness: patient oriented x3 [facility] Head: Yes normocephalic and Yes atraumatic Eyes General: appearance normal, both eyes and all related structures Pupils: Equal, round and reactive pupils present EOM: EOMs intact bilaterally Resp Effort & Inspection: normal respiratory effort Auscultation: clear to auscultation bilaterally Cardio Rate: regular rate Rhythm: regular rhythm Heart sounds: S1 normal heart sound present, S2 normal heart sound present, no gallops, no murmurs and no rubs Neuro General: patient oriented x3 and gait normal Cranial nerves: Yes Equal, round and reactive pupils present Psych Affect: normal affect Coding Level of Care Code Est Pt Level 4 (64081) Diagnoses Hypertension I10 Elevated LFTs R79.89 Anemia D64.9 Alcohol abuse F10.10 Hepatic steatosis K76.0 Assessment & Plan Assessment & Plan (1) Hypertension: Code(s): I10 - Essential (primary) hypertension Category: Medical Plan: Blood pressure is controlled. Goal is less than 140/90 Continue current medications (2) Elevated LFTs: Code(s): R79.89 - Other specified abnormal findings of blood chemistry Category: Medical Plan: Elevated liver enzymes likely secondary to alcohol use These are improving Ultrasound showed Hepatic steatosis. The median shear wave velocity in the liver is 1.80 m/s Findings are indicative of a high elastography value suggestive of compensated advanced chronic liver disease Encouraged weaning and abstinence from alcohol (3) Anemia: Code(s): D64.9 - Anemia, unspecified Category: Medical Plan: Likely anemia of chronic disease secondary to liver disease and also direct effect from alcohol This is stable Encouraged decreased alcohol use Will continue to monitor anemia periodically (4) Alcohol abuse: Code(s): F10.10 - Alcohol abuse, uncomplicated Category: Social Hx Plan: As above, encouraged weaning and cessation (5) Hepatic steatosis: Code(s): K76.0 - Fatty (change of) liver, not elsewhere classified Category: Medical Plan: As above f/u w/ GI Medications: Changed From atorvastatin 40 mg PO BEDTIME 30 tabs 3RF To atorvastatin 40 mg PO BEDTIME 90 tabs 3RF 90 days
[2025-09-15 12:46] VITALS: BP 126/66; PULSE 68; RESP 16; TEMP 36.6; O2SAT 98; BMI 28.4
== END 2025-09-15 14:19 | disposition home or self-care (01) ==
LOC: HO.HMCFM 11:07
PROVIDERS: PCP Family Medicine; Visit Provider Family Medicine
DX: I10 Essential (primary) hypertension (principal); R79.89 Other specified abnormal findings of blood chemistry; D64.9 Anemia, unspecified; F10.10 Alcohol abuse, uncomplicated; K76.0 Fatty (change of) liver, not elsewhere classified

== ENCOUNTER → 2025-09-15 11:06 | Outpatient (BNVA) | payer MEDICARE, SELFPAY | PROVIDERS: PCP Family Medicine; Visit Provider Family Medicine | DX: I10 Essential (primary) hypertension (principal); R79.89 Other specified abnormal findings of blood chemistry; D64.9 Anemia, unspecified; F10.10 Alcohol abuse, uncomplicated; K76.0 Fatty (change of) liver, not elsewhere classified | CPT/HCPCS: 99212 ==

== ENCOUNTER 2025-09-26 06:05 | Day surgery (SDC) | payer MEDICARE, SELFPAY ==
[2025-09-22 07:27] VITALS: BMI 27.6
--- NOTE | 2025-09-22 10:33 | HO.ANESPROP2 ---
Documented by User: Anu Estrada NP 09/22/25 10:37 HPI - Anesthesia Eval Consult details Narrative: 70yo M for Colonoscopy Daily ETOH PMFSH Active Problems Active Problems: All Active Problems Hepatic steatosis (Acute) Easy bruising (Acute) Leukopenia (Acute) Normocytic anemia (Acute) Hernia (Acute) Pre-operative clearance (Acute) Elevated LFTs (Acute) Anemia (Acute) Left inguinal hernia (Acute) Neck pain (Acute) Right shoulder pain (Acute) Paresthesia (Acute) Right sided numbness (Acute) CVA (cerebral vascular accident) (Acute) Laboratory exam ordered as part of routine general medical examination (Acute) Alcohol abuse (Acute) Hypertension (Acute) Brain TIA (Acute) Rotator cuff arthropathy (Acute) Hypersomnia (Acute) Snoring (Acute) Numbness and tingling in right hand (Acute) Past Medical History Medical History Rotator cuff arthropathy Hypersomnia Snoring Numbness and tingling in right hand Bilateral cataracts Cataract (lens) fragments in eye following cataract surgery Hypertension Family History Family History Sister Diabetes Family history of problems with anesthesia: No Surgical History Surgical History Hx of left inguinal hernia repair (07/03/25) Hx of bilateral cataract extraction Hx of bilateral inguinal hernia repair H/O vasectomy History of rotator cuff surgery History of Problems with Anesthesia: No Social History Social History Household Members: Spouse Housing: House Are you a primary child care lead teacher to a significant other at home: No Do you presently have visiting nurse or other home services: No Alcohol intake: current Alcohol intake frequency: 3 or more drinks per day Alcohol type: beer Patient Tobacco Use Status: Former Tobacco user Tobacco use type: Cigarette Cigarette Packs Per Day: 1 Years Smoked: 30 e-Cigarette/Vaping Use: Never Used Second Hand Smoke Exposure: No Use of substances other than those prescribed or required for medical reasons: Yes Substance Use Type: Marijuana Substance Use Frequency: Daily Advance Directives: No Advance Directives Information Provided: Yes Advance Directives Date on File: 09/16/24 service: No Current occupational status: retired 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, 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 Current occupational exposures/hazards: Yes Cognitive needs: No Hearing needs: Yes Vision needs: Yes Meds Allergies Allergy/AdvReac Type Severity Reaction Status Date / Time No Known Allergies Allergy Verified 09/15/25 12:46 Home Medications ?Medication ?Instructions ?Recorded ?Confirmed ?Last Taken ?Type amlodipine 5 mg tablet 5 mg PO .DAILY@92906/27/25 09/26/25 09/26/25 History aspirin 81 mg tablet,delayed 81 mg PO .DAILY@92906/27/25 09/26/25 09/19/25 History release hydrochlorothiazide 25 mg tablet 25 mg PO .DAILY@39906/27/25 09/22/25 Unknown History losartan 100 mg tablet 100 mg PO .DAILY@92906/27/25 09/22/25 07/02/25 08:00 History Exam Height,Weight and Vital Signs: Height 5 ft 9 in Weight 84.822 kg Assessment and Plan Assessment Anesthesia Assessment: Chart Reviewed Final Anesthetic Review Family History of Problems with Anesthesia: No History of Problems with Anesthesia: No Documented by User: Sherie Maki MD 09/26/25 07:54 PMFSH Past Medical History Medical History Rotator cuff arthropathy Hypersomnia Snoring Numbness and tingling in right hand Bilateral cataracts Cataract (lens) fragments in eye following cataract surgery Hypertension Family History Family History Sister Diabetes Surgical History Surgical History Hx of left inguinal hernia repair (07/03/25) Hx of bilateral cataract extraction Hx of bilateral inguinal hernia repair H/O vasectomy History of rotator cuff surgery Social History Social History Household Members: Spouse Housing: House Are you a primary child care lead teacher to a significant other at home: No Do you presently have visiting nurse or other home services: No Alcohol intake: current Alcohol intake frequency: 3 or more drinks per day Alcohol type: beer Patient Tobacco Use Status: Former Tobacco user Tobacco use type: Cigarette Cigarette Packs Per Day: 1 Years Smoked: 30 e-Cigarette/Vaping Use: Never Used Second Hand Smoke Exposure: No Use of substances other than those prescribed or required for medical reasons: Yes Substance Use Type: Marijuana Substance Use Frequency: Daily Advance Directives: No Advance Directives Information Provided: Yes Advance Directives Date on File: 09/16/24 service: No Current occupational status: retired 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, 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 Current occupational exposures/hazards: Yes Cognitive needs: No Hearing needs: Yes Vision needs: Yes Meds Allergies Allergy/AdvReac Type Severity Reaction Status Date / Time No Known Allergies Allergy Verified 09/15/25 12:46 Home Medications ?Medication ?Instructions ?Recorded ?Confirmed ?Last Taken ?Type amlodipine 5 mg tablet 5 mg PO .DAILY@92906/27/25 09/26/25 09/26/25 History aspirin 81 mg tablet,delayed 81 mg PO .DAILY@92906/27/25 09/26/25 09/19/25 History release hydrochlorothiazide 25 mg tablet 25 mg PO .DAILY@39906/27/25 09/22/25 Unknown History losartan 100 mg tablet 100 mg PO .DAILY@92906/27/25 09/22/25 07/02/25 08:00 History Exam Airway Mallampati Class: III (poor dentition) TM Dist: >3cm Neck ROM: Full Loose/Missing/Broken Teeth: No Heart: RRR Lungs: CTA Assessment and Plan Assessment Anesthesia Assessment: Anesthesia Plan Discussed Final Anesthetic Review NPO: Yes ASA Class: III Final Preanesthetic Review: Meds/Allgs Chart Reviewed, Consent Obtained/Reviewed and Anes Risks/Benef Reviewed Patient Risk: Intermediate Procedure Risk: Low Anesthetic Plan Anesthetic Plan: MAC: Disposition: Standard PACU
[2025-09-26 06:35] VITALS: BMI 27.1
[2025-09-26 06:49] VITALS: BP 168/80; PULSE 99; RESP 16; TEMP 37; O2SAT 100
[2025-09-26] MEDS: Lactated Ringers 1,000 ML 100 ML IVCONT (06:49)
--- NOTE | 2025-09-26 07:54 | MHC.SHP ---
Pre-Procedural Eval Section A - 24 Hr Update-Section A only Date of Service: 09/26/25 Section B - Complete if H&P > 30 days Chief Complaint: screening Details of Present Illness: Rotator cuff arthropathy Hypersomnia Snoring Numbness and tingling in right hand Bilateral cataracts Cataract (lens) fragments in eye following cataract surgery Hypertension Surgical History H/O vasectomy History of rotator cuff surgery Present Medications: see Short Stay Collaborative assessment Allergies: Allergies Allergy/AdvReac Type Severity Reaction Status Date / Time No Known Allergies Allergy Verified 09/15/25 12:46 Review of Systems Review of Systems Comment: Ten point ROS negative Exam Exam Comment: Gen appear: No acute distress HEENT: no icterus Chest: No overt resp distress Abd: soft, nontender, nondistended Psych: Stable affect, answering questions appropriately Neuro: A/Ox3 noted to move all extremities spontaneously Ext: no peripheral edema Plan Diagnosis/Plan: Unchanged I have reviewed the history and physical and performed a pertinent physical examination on my patient. No changes have occurred unless specified. Time Spent With Patient Time: Total time managing care of this patient today ____ minutes.
[2025-09-26 08:25] VITALS: BP 128/70; PULSE 87; RESP 16; TEMP 36.7; O2SAT 97
--- NOTE | 2025-09-26 08:31 | P.OPN-COLO_ITS ---
Colonoscopy Operative Note Operative Note Date of Service: 09/26/25 Narrative: Procedure: Colonoscopy Indication: history of polyps Endoscopist: Brittney Raymond MD Anesthesia Provider: Frandy Ware CRNA Anesthesia type: MAC Instrument: Olympus [id number]-H190L Consent: Indication, risks vs benefits, and alternatives were discussed with the patient who gave written informed consent to proceed. EKG, pulse, pulse oximetry and blood pressure were monitored throughout the procedure. Please see anesthesia flowsheet. Procedure: The patient was brought to the procedure room and placed in the left lateral decubitus position. IV medications were administered by the anesthesia provider in attendance. A digital rectal exam was performed which was normal. A distal attachment cap was affixed to the tip of the colonoscope which was then inserted through the anus and advanced through the colon to the cecum at 80 cm,and terminal ileum. Appendiceal orifice and ileocecal valve were identified. Mucosa was carefully examined under high definition white light as the instrument was slowly withdrawn in a retrograde panoramic fashion. Retroflexion was performed in rectum. The procedure was not difficult. There were no immediate obvious complications. The quality of the prep was BBPS:3+3+3 = adequate Withdrawal time 8 minutes. Limitations: No limitations. Findings: Mucosa: Normal to cecum and terminal ileum. Protruding lesions: * Medium internal hemorrhoids without stigmata of recent bleeding. Excavated lesions: * Few diverticula noted in right and left colon. Impression: 1. Normal colon mucosa 2. Diverticulosis 3. Internal hemorrhoids Recommendations: - Repeat colonoscopy in 5 years due to history of advanced polyps in 2020. Can revert to routine intervals if next colo is negative as well.
[2025-09-26 08:40] VITALS: BP 119/72; PULSE 87; RESP 16; TEMP 36.7; O2SAT 97
== END 2025-09-26 09:10 | disposition home or self-care (01) ==
PROVIDERS: PCP Family Medicine; Visit Provider Internal Medicine
PROC: 0DJD8ZZ Inspection of Lower Intestinal Tract, Via Natural or Artificial Opening Endoscopic (ICD-10-PCS; CPT 45378; principal; 2025-09-26 07:30)
DX: Z12.11 Encounter for screening for malignant neoplasm of colon (principal); D64.9 Anemia, unspecified; R23.3 Spontaneous ecchymoses; D72.819 Decreased white blood cell count, unspecified; K64.8 Other hemorrhoids; K57.30 Diverticulosis of large intestine without perforation or abscess without bleeding; Z86.0109 Personal history of other colon polyps
CPT/HCPCS: G0105; J2704

== ENCOUNTER → 2025-09-26 06:05 | Outpatient (BNV) | payer MEDICARE, SELFPAY | PROVIDERS: PCP Family Medicine; Visit Provider Internal Medicine | DX: Z12.11 Encounter for screening for malignant neoplasm of colon (principal); K57.90 Diverticulosis of intestine, part unspecified, without perforation or abscess without bleeding; K64.8 Other hemorrhoids | CPT/HCPCS: G0105 ==